=== PATIENT | male | born 1950 | race Caucasian/White ===

== ENCOUNTER → 2017-10-07 09:26 | Outpatient (CLI) | payer MEDICARE, OTHER, SELFPAY | PROVIDERS: Family Provider Internal Medicine; PCP Internal Medicine; Visit Provider Nurse Practitioner Family | DX: I48.0 Paroxysmal atrial fibrillation (principal); I25.118 Atherosclerotic heart disease of native coronary artery with other forms of angina pectoris | CPT/HCPCS: 93225; 93226 ==

== ENCOUNTER → 2018-03-24 06:39 | Outpatient (CLI) | payer MEDICARE, OTHER, SELFPAY ==
[2018-03-18 11:13] VITALS: BMI 24.3
--- NOTE | 2018-03-24 11:42 | STRESSREP ---
Stress Test Report Exercise myocardial perfusion stress test. 67-year-old man with a history of chest pain. Medications clopidogrel simvastatin metoprolol. Stress protocol: Resting EKG demonstrates normal sinus rhythm with a rate of 65 beats minute normal intervals are noted resting blood pressure 120/72 mmHg. The patient exercised according to regular Robert protocol for total duration of 8 minutes completing 2 minutes into stage III of the Robert protocol the maximum heart rate attained was 136 bpm which was 88% of maximum predicted heart rate maximum workload was 10.1 metabolic equivalents. At rest there were no ST or T wave changes noted suggest ischemia peak exercise upsloping ST changes only were noted with normally the criteria for ischemia. No clinical angina was noted. The resting blood pressure was 120/72 mmHg with a peak blood pressure 162/80 mmHg. Rate pressure product was 20,800. Myocardial perfusion protocol. 10.9 mCi of technetium 99m sestamibi was injected at rest. The patient exercised according to regular Robert protocol for total duration of 10 minutes at peak exercise 30.3 mCi of technetium 99m sestamibi was injected stress images were obtained stress and rest images were reconstructed and compared in the short axis vertical long horizontal long axis. Gated images were also obtained Perfusion SPECT analysis: Review of the stress images demonstrate normal uptake of tracer noted in all areas of myocardium. The resting images similarly demonstrate normal uptake of tracer noted in all areas of the myocardium. No areas of reversibility are noted suggest ischemia. Gated SPECT analysis: The gated ejection fraction is noted to be 62%. Conclusion: Normal exercise myocardial perfusion stress test at a high workload. Preserved ejection fraction. Good functional capacity.
== END ==
PROVIDERS: Family Provider Internal Medicine; PCP Internal Medicine; Referring Provider Internal Medicine Cardiovascular Disease; Visit Provider Internal Medicine Cardiovascular Disease
DX: I25.119 Atherosclerotic heart disease of native coronary artery with unspecified angina pectoris (principal)
CPT/HCPCS: 78452; 93017; A9500; A4216

== ENCOUNTER → 2018-12-30 15:30 | Outpatient (CLI) | payer MEDICARE, OTHER, SELFPAY ==
[2018-09-26 10:50] VITALS: BMI 22.3
--- NOTE | 2018-12-30 15:45 | MRI_ITS ---
STUDY: MRI UPPER EXTREMITY RIGHT HUMERUS WITH T WITHOUT CONTRAST REASON FOR EXAM: Male, 68 years old. Abnormal x-ray. Lesion of the proximal medial humerus. TECHNIQUE: Standardized fat and water weighted pulse sequences were obtained in all 3 orthogonal planes, pre-and post contrast administration. IV Dotarem 15 was administered for the contrast portion of the examination. COMPARISON: Prior comparison studies are not available for review at this time. FINDINGS: Normal subcutis adipose space. There is no demonstrated solid, cystic, or lipomatous mass within the subcutaneous adipose space. Normal visualized muscles and fascia. There is calcific tendinopathy of the rotator cuff, series 3 image . There is tenosynovitis of the long head of the biceps. Normal visualized neurovascular bundles. Normal humerus. There is no fracture or focal destruction. There is no enhancing mass. MRI/Upper Ext No Joint W/WO Cont IMPRESSION: No focal fracture or destruction. Electronically Signed: Howard Yeung MD at 8:49 EDT , Service support ,
--- NOTE | 2018-12-30 15:46 | MRI_ITS ---
STUDY: MRI RIGHT SHOULDER REASON FOR EXAM: Male, 68 years old. Abnormal x-ray. Lesion medial aspect proximal humerus. TECHNIQUE: Standardized fat and water weighted pulse sequences were obtained in all 3 orthogonal planes. COMPARISON: No recent studies submitted for comparison. FINDINGS: Mild tendon thickening and signal abnormality in the supraspinatus and infraspinatus tendons consistent with tendinosis or low-grade partial tear. No high-grade tear. Normal subscapularis tendon. Normal teres minor tendon. Visualized muscles are intact. 0.6 cm hypointense lesion along the anterior margin of the supraspinatus tendon is consistent with calcification and calcific tendinosis. Normal glenohumeral articulation. Normal biceps labral complex. Normal intracapsular long biceps tendon. Normal labrum. Normal capsulo- ligamentous complex. Normal rotator interval. Marked acromioclavicular arthrosis and small joint effusion. There is a Type I morphology (flat undersurface), with a neutral orientation. There is no subacromial-subdeltoid bursal fluid. 1.1 x 1.1 cm cystic lesion posterior to the glenoid, probable ganglion cyst. Marrow signal shows no fracture, bone contusion, or osteonecrosis. No destructive lesion. No enhancing lesion. MRI/Upper Ext Joint Only W/WO Cont IMPRESSION: 1. Tendinosis versus low-grade partial tear of the supraspinatus and infraspinatus tendons. 2. Suspected calcification along the anterior margin of the supraspinatus tendon suspicious for calcific tendinitis. Correlate with plain film. 3. Small ganglion cyst along the posterior margin of the glenoid process. Electronically Signed: Anjelica Benitez MD at 21:03 EDT Tel , Service support ,
== END ==
PROVIDERS: Family Provider Internal Medicine; PCP Internal Medicine; Referring Provider Physician Assistant Surgical; Visit Provider Physician Assistant Surgical
DX: R22.31 Localized swelling, mass and lump, right upper limb (principal); M25.511 Pain in right shoulder
CPT/HCPCS: 73220; 73223; A9575; A4216

== ENCOUNTER → 2020-03-13 08:03 | Outpatient (CLI) | payer MEDICARE, OTHER, SELFPAY ==
[2020-03-12 07:49] VITALS: BMI 24.1
[2020-03-13 10:19] LABS: AST(SGOT) 17 U/L (15-37); Alanine Aminotransfer ALT/SGPT 33 U/L (16-61); Albumin, Serum 3.9 g/dL (3.2-5.0); Alkaline Phosphatase 69 U/L (45-117); Bilirubin, Direct 0.18 mg/dL (0.00-0.30); Cholesterol 149 mg/dL (200); Globulin 3.4 g/dL (2.2-4.2); High Density Lipoprotein 46 mg/dL; Protein, Total 7.3 g/dL (6.4-8.2); Triglycerides 107 mg/dL; Very Low Density Lipoprotein 21 mg/dL (5-40)
== END ==
PROVIDERS: PCP Nurse Practitioner Family; Referring Provider Internal Medicine Cardiovascular Disease; Visit Provider Internal Medicine Cardiovascular Disease
DX: I25.119 Atherosclerotic heart disease of native coronary artery with unspecified angina pectoris (principal); E78.5 Hyperlipidemia, unspecified
CPT/HCPCS: 36415; 80061; 80076

== ENCOUNTER 2020-04-04 17:58 | Inpatient (IN) | payer MEDICARE, OTHER, SELFPAY ==
[2020-03-12 07:49] VITALS: BMI 24.1
[2020-04-04] VITALS (11 sets, daily range): BP systolic 123–160; BP diastolic 74–95; PULSE 76–103; RESP 14–16; TEMP 36.4–36.8; O2SAT 95–100; BMI 24.9; BMI 25.0
--- NOTE | 2020-04-04 18:05 | EKG12_ITS ---
Test Reason : CP Blood Pressure : / mmHG Vent. Rate : 100 BPM Atrial Rate : 100 BPM P-R Int : 220 ms QRS Dur : 100 ms QT Int : 348 ms P-R-T Axes : 051 -33 067 degrees QTc Int : 448 ms Sinus rhythm with 1st degree A-V block Left axis deviation Incomplete right bundle branch block Abnormal ECG Confirmed by MAR REYES, LISSET ([id number]), legal editor PERI JALLOH ([id number]) on 04/08/2020 9:05:36 AM Referred By: JAMES Confirmed By:LISSET MANUEL MD
--- NOTE | 2020-04-04 18:07 | ED.VIS.GEN ---
History of Present Illness Chief Complaint: Chest Pain Informant: Patient Narrative: Patient is a 69-year-old male with a past medical history of CAD with 1 stent placed who presents to the emerge part for substernal chest pain. He currently rates this as 8 out of 10. Initially started around noon became more constant around 3 PM. He has had pain like this before whenever they placed a stent around 5 years ago. He does not know aggravating or relieving factors. No associated shortness of breath. The pain does not radiate. Denies any leg swelling or calf pain. No nausea/diaphoresis. No abdominal pain. He did take a baby aspirin prior to coming in. He is on Plavix regularly. He denies a smoking history. Past Medical History - Allergies and Home Meds Allergies/Adverse Reactions: Allergies amiodarone Adverse Reaction (Verified 03/12/20 07:49) headaches Prior records reviewed: Yes Surgical History: herniorrhaphy, - - back surgery 1994, vasectomy. Smoking Status: Never smoker Review of Systems General: Denies: Chills, Fever, Sweats Eyes: Denies: Visual changes - bilaterally, Diplopia ENT: Denies: Rhinorrhea, Sore throat Cardiovascular: Reports: Chest pain. Denies: Palpitations Respiratory: Denies: Dyspnea, Cough, Dyspnea on exertion Gastrointestinal: Denies: Abdominal pain, Nausea, Vomiting, Diarrhea Musculoskeletal: Denies: Back pain, Extremity Pain Skin: Denies: Rash, Wounds Neurological: Denies: Headache, Weakness, Numbness Physical Exam Vital Signs/Narrative: Vital Signs Temp Pulse Resp BP Pulse Ox 04/04/20 18:04 99 16 160/93 H 100 04/04/20 17:59 97.6 F L 99 15 160/93 H 98 Inital Vital Signs reviewed: Yes General: Well nourished, Well developed, No Acute Distress Head: Normocephalic, Atraumatic Eyes: Perrl, EOMI ENT: Moist mucous membranes, No rhinorrhea Neck: Supple, Nontender Cardiovascular: Regular rate, Regular rhythm, No murmurs Respiratory: No distress, CTA bilaterally, Chest nontender Abdomen: Soft, Nontender, Nondistended, Normal bowel sounds Back: Nontender, Normal Inspection Extremities: Nontender, No edema. Negative for: Calf Tenderness Skin: Normal color, No rash Neurological: Alert, Oriented x3, Normal Strength, Normal Sensation Psychological: Normal affect, Normal Mood Diagnostic/Tx/Re-eval Chest X-Ray - ED: - - Single view portable x-ray interpreted by myself. No consolidation appreciated. No pleural effusions. Normal cardiac silhouette. Normal mediastinum. No acute cardiopulmonary abnormality. Agree with radiologist interpretation. - EKG Initial EKG Interpretation: - - Rate of 100 bpm in sinus rhythm. There is a OK interval of 220. Otherwise normal intervals. Left axis deviation. No significant ST elevations or depressions. No T wave abnormalities. Prior EKG for comparison was performed in 2014,sinus bradycardia that time with a normal OK interval. - Medical Decision Making Patient presents to the ED for substernal chest pain. Upon arrival to the emergency department he is mildly hypertensive but otherwise normal vital signs. He does not appear in acute distress. EKG, chest x-ray basic lab work being obtained. Will trial a dose of sublingual nitro for the chest pain. He did take a baby aspirin prior to coming in so we will give him the rest of the dose. Patient's lab work did not show any significant acute abnormality. His initial troponin is negative. He does have a heart score of 5. Given his active pain, history of CAD will bring into the hospital for further evaluation and management. The nitroglycerin did help slightly so we will do Nitropaste and give a dose of morphine. Patient otherwise has been stable throughout ED stay. He understands and is agreeable with this plan. ED Disposition - Plan for ED Patient: Disposition: Acute Care [facility] Diagnosis: Chest pain
[2020-04-04] MEDS: Aspirin 81 MG TAB.CHEW 243 MG PO (18:12)
[2020-04-04 18:16] LABS: Absolute Neutrophil Count 4.7 X10^3/uL (2.0-7.7); Basophil# 0.05 X10^3/uL; Basophil% 0.7 % (0-1); Eosinophil# 0.17 X10^3/uL; Eosinophils% 2.3 % (0-5); Hematocrit 43.3 % (40-54); Hemoglobin 14.2 g/dL (13.0-16.5); Lymphocyte % 24.1 % (19-41); Mean Corp Hgb Conc 32.8 g/dL (32-36); Mean Corpuscular Hgb 30.9 pg (27.0-32.0); Mean Corpuscular Volume 94.1 fL (80-94); Mean Platelet Vol. 8.9 fl (6.2-12.0); Monocyte# 0.76 X10^3/uL; Monocyte% 10.2 % (0-10); NRBC Flagged by Analyzer 0 % (0-5); Neutrophil # 4.67 X10^3/uL (2.7-7.7); Neutrophil % 62.4 % (47-70); Platelet Count 241 K/mm3 (150-450); RBC Distribution Width CV 12.1 % (11.6-14.6); RBC Distribution Width SD 41.9 fl (35.1-43.9); White Blood Count 7.5 K/mm3 (4.4-11.0)
--- NOTE | 2020-04-04 18:18 | RAD_ITS ---
STUDY: X-RAY CHEST REASON FOR EXAM: Male, 69 years old. Sternal chest pain beginning at noon. TECHNIQUE: Single AP portable view of the chest. COMPARISON: 08/06/2015. FINDINGS: The lungs are clear and expanded. There is no demonstrated pleural abnormality. Normal size heart. Normal mediastinum and radha. Normal visualized pulmonary arteries. Normal visualized aortic arch and descending thoracic aorta. There are diffuse degenerative changes of the visualized thoracic spine. There is degenerative osteoarthritis of the bilateral shoulders. There is no demonstrated abnormality of the visualized soft tissue structures of the upper abdomen. RAD/Chest 1 View (Portable) IMPRESSION: Degenerative changes, as described above. No demonstrated acute cardiopulmonary process. No major interval change. Electronically Signed: Alfred Naylor DO at 18:30 EST Tel [phone], Service support ,
--- NOTE | 2020-04-04 18:18 | ED.RN ---
cp remains 8-12/13. woods 09/12. declines medication for woods.
[2020-04-04 18:43] LABS: Anion Gap 4 (5-15); BUN 18 mg/dL (7-18); BUN/Creat Ratio 16.4 RATIO (10-20); Calcium,Total 9.4 mg/dL (8.5-10.1); Chloride 104 mmol/L (98-107); EST Glomerular Filtration Rate 71 mL/min (>60); Est Glom Filt Rate - Afr Amer 86 mL/min (>60); Estimated Creatinine Clearance 66.36 ml/min; Glucose 115 mg/dL (74-106); Sodium Level 138 mmol/L (136-145)
--- NOTE | 2020-04-04 19:20 | HP.PCM_ITS ---
Problem List (1) Chest pain Status: Acute Qualifiers: Chest pain type: unspecified Qualified Code(s): R07.9 - Chest pain, unspecified (2) Atherosclerosis of coronary artery of [place] heart with angina pectoris Status: Chronic Qualifiers: Coronary Disease-Associated Artery/Lesion type: unspecified vessel or lesion type Qualified Code(s): I25.119 - Atherosclerotic heart disease of [place] coronary artery with unspecified angina pectoris (3) History of coronary artery stent placement Status: Resolved Comment: [id number] LAD w/ 3.0 x 20 mm Promus Premier Stent 11/01/14 (4) Paroxysmal atrial fibrillation Status: Chronic Comment: Cryo PVI 2016 (5) HLD (hyperlipidemia) Status: Chronic Qualifiers: Hyperlipidemia type: unspecified Qualified Code(s): E78.5 - Hyperlipidemia, unspecified History of Present Illness Date of Admission: 04/04/20 Chief Complaint: Chest pain The patient is a 69 y/o M w/ PMHx: PAF s/p ablation, CAD s/p PCI proximal LAD, HLD, Chronic back pain/OA, GERD who presents to the [facility] ED on 04/04/20 with history of onset of substernal chest discomfort, described as pressure-like in nature, rated 8 out of 10 in severity starting at approximately noon and ongoing although he notes more consistent around 3 PM, similar to the pain he had approximately 5 years prior when he had his stenting of his LAD with no radiation, dyspnea, nausea, diaphoresis associated. In the ED following nitroglycerin administration patient notes improvement of his chest discomfort, more intermittent now and lessening to 5 out of 10 in severity with onset with associated headache following nitroglycerin administration. Patient does state he had a similar feeling prior to having had a stent previously. Work-up in the ED included T 97.6, heart 99, BP 160/93, respiratory rate 15, 98% on room air, CBC with WC 7.5, hemoglobin 14.2, platelet 241 without marked shift, BMP with glucose 115, troponin less than 0.015, chest x-ray with degenerative changes otherwise no acute cardiopulmonary findings, EKG with sinus rhythm with no acute evidence of ischemia. In the ED patient ministered nitroglycerin, morphine and aspirin therapy. Most recent stress testing noted on 03/24/2018, cardiac catheterization 08/08/2015 with at that time angiographically normal left main coronary artery, LAD artery with no high-grade stenosis, left circumflex artery with no high-grade stenosis, dominant right coronary artery with no high-grade stenosis, previously placed stent in the left anterior descending artery patent with a preserved EF, 11/01/2014 echocardiogram with normal LV, EF 50%, mild segmental systolic dysfunction, mildly hypokinetic mid anterior septal region, mildly hypokinetic mid anterior region, structurally normal valves. Past Medical History Past Medical History (Chronic Problems): Chronic Problems (Last Reviewed 03/12/20 @ 09:[address] Dallas Jones MD) Atherosclerosis of coronary artery of [place] heart with angina pectoris (Chronic) Paroxysmal atrial fibrillation (Chronic) Cryo PVI 2016 HLD (hyperlipidemia) (Chronic) Medical History: Medical History (Last Reviewed 03/12/20 @ 09:[address] Dallas Jones MD) Atherosclerosis of coronary artery of [place] heart with angina pectoris (Chronic) I25.119 Paroxysmal atrial fibrillation (Chronic) I48.0 Cryo PVI 2016 HLD (hyperlipidemia) (Resolved) E78.5 Back pain M54.9 Knee pain M25.569 Neck pain M54.2 Allergies amiodarone Adverse Reaction (Verified 03/12/20 07:49) headaches Home Medications: Ambulatory Orders Medication Instructions Recorded cholecalciferol (vitamin D3) 50 50 mcg PO DAILY 03/12/20 mcg (2,000 unit) capsule pantoprazole 40 mg tablet,delayed 40 mg PO DAILY #90 tab 03/12/20 release Clopidogrel Bisulfate [Clopidogrel] 75 mg PO DAILY 04/04/20 Cyanocobalamin (Vitamin B-12) 1,000 mcg PO DAILY 04/04/20 [Vitamin B-12] Penicillin V Potassium 500 mg PO 4X/DAY 04/04/20 Simvastatin 20 mg PO QPM 04/04/20 Surgical History: Surgical History (Last Reviewed 03/12/20 @ 09:[address] Dallas Jones MD) History of coronary artery stent placement (Resolved) Onset Date: 11/01/14 Z9 5.5 [id number] LAD w/ 3.0 x 20 mm Promus Premier Stent 11/01/14 History of herniorrhaphy Z98.890, Z87.19 History of vasectomy Z98.52 History of left heart catheterization Onset Date: 08/08/15 Z98.890 History of radiofrequency ablation procedure for cardiac arrhythmia Onset Date: 12/2016 Z98.890 CRYO PVI Surgical History: herniorrhaphy, - - Back surgery 1994, vasectomy, PCI x1, hernia repair, cardiac ablation. Psychiatric History: No pertinent psych hx Lives: Spouse/ Significant Other Smoking Status: Never smoker Tobacco Use: Non-smoker Alcohol: Occasional Drugs: None - *Family History Maternal Family History: Family History (Last Reviewed 03/12/20 @ 09:[address] Dallas Jones MD) Father CAD (coronary artery disease) Myocardial infarction Mother CAD (coronary artery disease) Sister CAD (coronary artery disease) History Items: Heart Disease Paternal Family History: Family History (Last Reviewed 03/12/20 @ 09:[address] Dallas Jones MD) Father CAD (coronary artery disease) Myocardial infarction Mother CAD (coronary artery disease) Sister CAD (coronary artery disease) History Items: Heart Disease Review of Systems Constitutional: Reports: Fatigue. Denies: Chills, Fever, Malaise, Weakness, Weight Change HEENT: Denies: Head Aches, Sinus Congestion, Sinus Drainage Cardiovascular: Reports: Chest Pain, Chest Pressure. Denies: Chest Tightness, Light Headedness, Orthopnea, Palpitations, Syncope Respiratory: Denies: Cough, Shortness of Breath, Shortness of breath at rest, Shortness of breath upon exertion, Sputum production Gastrointestinal: Denies: Abdominal Pain, Nausea, Vomiting Genitourinary: Denies: Dysuria Musculoskeletal: Reports: Back Pain, Joint Pain. Denies: Joint Tenderness Skin: Denies: Rash, Wounds Neurological: Denies: Numbness, Tingling, Focal weakness Psychiatric: Denies: Anxiety, Depression, Homicidal Ideations, Suicidal Ideations Hematologic/ Lymphatic: Denies: Easy Bruising, Easy Bleeding VTE Information - Inpt Only VTE Present on Admission: No VTE Mechan Device Prophylaxis: SCD's VTE Pharm Prophylaxis ordered?: Yes Patient Problems: Active and Suspected Problems (Last Reviewed 03/12/20 @ 09:[address] Dallas Jones MD) Chest pain (Acute) Subjective: Patient seated upright in the ED bed, notes chest discomfort is lessening, intermittent downstate of constant, pressure-like, now 5 out of 10 in severity, improved from prior. Objective: Physical Examination: General: awake, alert, oriented x 3 and cooperative, seated upright in the ED bed, mildly fatigued appearance, notes chest discomfort is improving. Skin: normal color, turgor, no icterus, cyanosis. HEENT: AT/NC, EOMI, PERRLA, mildly dry MM, no carotid bruits or JVD noted. Lungs: CTA bilaterally, moderate effort, mild decrease BL bases, no rales, ronchi or wheezing. Heart: Regular rate and rhythm; no gallop, rub audible. Abdomen: soft, NTTP, ND, normal BS, no HSM. Extremities: no cyanosis, clubbing, or edema. Neurological: patient awake, alert, oriented as noted; cognitive function intact; pupils equally reactive to light and accomodation; cranial nerves II-XII grossly normal, moving all 4 extremities, no focal deficits, strength mildly to moderately global decreased secondary to acute presentation. Psychiatric: affect appears mildly fatigued otherwise normal, no acute evidence of depressive or anxiety feelings. - Physical Exam Vitals/I&O's: Vital Signs Temp Pulse Resp BP Pulse Ox 97.6 F L 87 16 131/77 H 98 04/04/20 17:59 04/04/20 19:10 04/04/20 19:10 04/04/20 19:10 04/04/20 19:10 Oxygen Delivery Method Room Air Weight: 173 lb 8.061 oz Body Mass Index (BMI) 24.9 Laboratory Results 04/04/20 18:00: WBC 7.5, RBC 4.60, Hgb 14.2, Hct 43.3, MCV 94.1 H, MCH 30.9, MCHC 32.8, RDW Std Deviation 41.9, RDW Coeff of Radha 12.1, Plt Count 241, MPV 8.9, Immature Gran % (Auto) 0.300, Neut % (Auto) 62.4, Lymph % (Auto) 24.1, [place] % (Auto) 10.2 H, Eos % (Auto) 2.3, Baso % (Auto) 0.7, Absolute Neuts (auto) 4.7, Absolute Lymphs (auto) 1.80, Nucleated RBC % 0 04/04/20 18:00: Sodium 138, Potassium 4.0, Chloride 104, Carbon Dioxide 30.0, Anion Gap 4 L, BUN 18, Creatinine 1.10, Estim Creat Clear Calc 66.36, Est GFR (MDRD) Af Amer 86, Est GFR (MDRD) Non-Af 71, BUN/Creatinine Ratio 16.4, Glucose 115 H, Calcium 9.4, Troponin I < 0.015 Current Medications Nitroglycerin (Nitroglycerin Sl (Ed/Img/Cath) 0.4 Mg Tablet) 0.4 mg SUBLINGUAL Q5M PRN PRN Reason: Chest pain Assessment/Plan All Active Problems (Last Reviewed 03/12/20 @ 09:[address] Dallas Jones MD) Chest pain (Acute) History of coronary artery stent placement (Resolved 11/01/14) Conjunctivitis (Resolved) Maxillary sinusitis, acute (Resolved) The patient is a 69 y/o M w/ PMHx: PAF s/p ablation, CAD s/p PCI proximal LAD, HLD, Chronic back pain/OA, GERD who presents to the [facility] ED on 04/04/20 with history of onset of substernal chest discomfort rated 8 out of 10 in severity starting at approximately noon and ongoing although he notes more consistent around 3 PM, similar to the pain he had approximately 5 years prior when he had his stenting of his LAD. 1. Chest Pain: EKG in ED SR without acute evidence of ischemia, CXR w/ no acute cardiopulmonary findings, initial trop normal x 1. Will admit to PCU, place on a monitored bed to assure no acute myocardial infarction with serial cardiac enzymes and EKGs. Pending trending of enzymes and EKG will obtain AM stress testing. Will continue NG paste given improvement of chest pain with NG SL regimen. If elevated or alteration of EKG will obtain cardiology consultation. ASA, NG, morphine. 2. CAD: Status post PCI 2014 to the left anterior descending artery with cardiac catheterization as noted 08/08/2015 patent that at that time, we will continue patient aspirin, Plavix, statin therapy, not on beta-nohemy or MARIUSZ inhibitor/ARB, will consider addition especially given mildly elevated blood pressures upon presentation. 3. Elevated BP without hypertensive diagnosis: Patient with elevated BPs in the ED, will continue closely monitor and if appropriate add beta-nohemy therapy as well as possibly MARIUSZ inhibitor/ARB especially given CAD history as noted above. As needed IV hydralazine in interim. 4. Hyperlipidemia: Continue home statin regimen. AM FLP. 5. GERD: We will continue patient PPI. 6. PAF: Status post ablation, not on any rate or rhythm agents, noted allergy to amiodarone, not anticoagulated. 7. DVT prophylaxis: SCDs, Lovenox. 8. CODE status: Patient DENNIS is his and living will is currently in place. Discussed CODE status at length including difference between FULL code, DNR-CCA and DNR-CC status. Following discussions about the differences in these status, requested Full Code status. Advanced Care Planning Face to Face Time: 16 minutes. OBSV E&M: 43332 Initial observation care L3 Procedures: 32039 Advncd Care Plan 30 Min
[2020-04-04] MEDS: Nitroglycerin Oint 1 INCH PACKET TD (20:04)
[2020-04-04] MEDS: Morphine 4 MG/ML Syringe IV (20:05)
--- NOTE | 2020-04-04 20:23 | PCS.PANDOC ---
PANDEMIC DOCUMENTATION INITIATED: Date: 04/04/20 Time: 20:23
--- NOTE | 2020-04-04 20:29 | EKG12_ITS ---
Test Reason : AM EKG Blood Pressure : / mmHG Vent. Rate : 074 BPM Atrial Rate : 074 BPM P-R Int : 180 ms QRS Dur : 092 ms QT Int : 398 ms P-R-T Axes : 067 000 062 degrees QTc Int : 441 ms Normal sinus rhythm Normal ECG When compared with ECG of 04-APR-2020 17:59, MANUAL COMPARISON REQUIRED, DATA IS UNCONFIRMED Confirmed by MAR REYES, LISSET ([id number]), primer expeditor and drier PERI JALLOH ([id number]) on 04/09/2020 9:19:55 AM Referred By: SAVI Confirmed By:LISSET MANUEL MD
[2020-04-04 21:23] LABS: Magnesium 2.3 mg/dL (1.6-2.6)
[2020-04-04] MEDS: Atorvastatin Calcium 10 MG Tablet PO (21:31)
[2020-04-04] MEDS: Nitroglycerin Oint 1 INCH PACKET 0.5 INCH TD (23:03)
[2020-04-04] MEDS: Acetaminophen 325 MG Tablet 650 MG PO (23:07)
[2020-04-05] VITALS (11 sets, daily range): BP systolic 99–127; BP diastolic 60–84; PULSE 63–85; RESP 18–20; TEMP 36.7–37.2; O2SAT 92–98
[2020-04-05] MEDS: Nitroglycerin Oint 1 INCH PACKET 0.5 INCH TD ×2 (04:52→17:08)
--- NOTE | 2020-04-05 05:55 | EKG12_ITS ---
Test Reason : AM EKG Blood Pressure : / mmHG Vent. Rate : 069 BPM Atrial Rate : 069 BPM P-R Int : 184 ms QRS Dur : 092 ms QT Int : 408 ms P-R-T Axes : 051 001 049 degrees QTc Int : 437 ms Normal sinus rhythm Normal ECG When compared with ECG of 04-APR-2020 20:55, MANUAL COMPARISON REQUIRED, DATA IS UNCONFIRMED Confirmed by MAR REYES, LISSET ([id number]), publications editor PEIR JALLOH ([id number]) on 04/09/2020 9:24:09 AM Referred By: SAVI Confirmed By:LISSET MANUEL MD
[2020-04-05 06:53] LABS: Absolute Lymphocyte Count 1.27 X10^3/uL (0.83-4.51); Absolute Neutrophil Count 3.5 X10^3/uL (2.0-7.7); Basophil# 0.03 X10^3/uL; Basophil% 0.5 % (0-1); Eosinophil# 0.13 X10^3/uL; Eosinophils% 2.3 % (0-5); Hematocrit 39.3 % (40-54); Hemoglobin 12.7 g/dL (13.0-16.5); Lymphocyte # 1.27 X10^3/ul (4.0); Lymphocyte % 22.8 % (19-41); Mean Corp Hgb Conc 32.3 g/dL (32-36); Mean Corpuscular Hgb 30.8 pg (27.0-32.0); Mean Corpuscular Volume 95.2 fL (80-94); Mean Platelet Vol. 9.1 fl (6.2-12.0); Monocyte# 0.66 X10^3/uL; Monocyte% 11.9 % (0-10); NRBC Flagged by Analyzer 0 % (0-5); Neutrophil # 3.46 X10^3/uL (2.7-7.7); Neutrophil % 62.3 % (47-70); Platelet Count 206 K/mm3 (150-450); RBC Distribution Width CV 12.3 % (11.6-14.6); RBC Distribution Width SD 42.7 fl (35.1-43.9); Red Blood Count 4.13 M/mm3 (4.6-6.2); White Blood Count 5.6 K/mm3 (4.4-11.0)
[2020-04-05 07:15] LABS: ALB/GLOB Ratio 1.2 RATIO (0.9-2.4); AST(SGOT) 20 U/L (15-37); Alanine Aminotransfer ALT/SGPT 26 U/L (16-61); Albumin, Serum 3.5 g/dL (3.2-5.0); Alkaline Phosphatase 65 U/L (45-117); Anion Gap 3 (5-15); BUN 16 mg/dL (7-18); BUN/Creat Ratio 16.1 RATIO (10-20); Calcium,Total 8.6 mg/dL (8.5-10.1); Chloride 105 mmol/L (98-107); Cholesterol 148 mg/dL (200); Creatinine, Serum 0.99 mg/dL (0.70-1.30); EST Glomerular Filtration Rate 80 mL/min (>60); Est Glom Filt Rate - Afr Amer 96 mL/min (>60); Estimated Creatinine Clearance 73.74 ml/min; Glucose 92 mg/dL (74-106); High Density Lipoprotein 45 mg/dL; Potassium 3.8 mmol/L (3.5-5.1); Protein, Total 6.5 g/dL (6.4-8.2); Sodium Level 139 mmol/L (136-145); Triglycerides 98 mg/dL; Very Low Density Lipoprotein 20 mg/dL (5-40)
--- NOTE | 2020-04-05 08:06 | PCM.PN.HOSP ---
Patient Problems: Active and Suspected Problems (Last Reviewed 03/12/20 @ 09:[address] Dallas Jones MD) Chest pain (Acute) Reason for Visit: Follow-up for chest pain possible unstable angina Objective: Patient had about 4 to 5 hours of chest pain. Still feels mild heaviness on the chest but serial troponins are negative. EKG sinus rhythm with no acute evidence of ischemia. Patient most recent stress test in March 2018, cardiac cath August 08, 2015 showed previously placed stent in LAD patent and no significant major restenosis. Physical exam General: Alert, Oriented x3, Cooperative HEENT: Atraumatic, PERRLA, EOMI, Normocephalic Oral: No Gingival or Mucosal Lesions/ Ulcerations Neck: Supple, No JVD, Negative Carotid Bruits Lungs: Air entry diminished in bilateral lung bases. No crepitation/rhonchi Cardiovascular: Regular rate, Regular Rhythm, Normal S1, Normal S2, No murmurs Abdomen: Bowel Sounds Present, Soft, Non Tender, Non-Distended : No renal angle tenderness. No suprapubic tenderness. Extremities: No edema, Capillary Refill Less than 3 Seconds Skin: No rashes, No breakdown Musculoskeletal: No Tenderness to Palpation of Joints or Extremities Neurological: Cranial nerves II-XII grossly intact, Deep Tendon Reflexes 2+/4 and Symmetrical, Neuro grossly intact Psych/Mental Status: Normal Affect, Appropriate. Vitals/I&O's: Vital Signs Temp Pulse Resp BP Pulse Ox 98.9 F 74 20 H 99/60 98 04/05/20 03:30 04/05/20 07:47 04/05/20 03:30 04/05/20 03:30 04/05/20 03:30 Oxygen Delivery Method Room Air Weight: 174 lb 2.643 oz Body Mass Index (BMI) 25.0 Intake and Output for Last 24 Hours 04/03/20 04/04/20 04/05/20 23:59 23:59 23:59 Intake Total 360 / 360 Balance 360 / 360 Laboratory Results 04/04/20 18:00: WBC 7.5, RBC 4.60, Hgb 14.2, Hct 43.3, MCV 94.1 H, MCH 30.9, MCHC 32.8, RDW Std Deviation 41.9, RDW Coeff of Radha 12.1, Plt Count 241, MPV 8.9, Immature Gran % (Auto) 0.300, Neut % (Auto) 62.4, Lymph % (Auto) 24.1, Bell % (Auto) 10.2 H, Eos % (Auto) 2.3, Baso % (Auto) 0.7, Absolute Neuts (auto) 4.7, Absolute Lymphs (auto) 1.80, Nucleated RBC % 0 04/04/20 18:00: Sodium 138, Potassium 4.0, Chloride 104, Carbon Dioxide 30.0, Anion Gap 4 L, BUN 18, Creatinine 1.10, Estim Creat Clear Calc 66.36, Est GFR (MDRD) Af Amer 86, Est GFR (MDRD) Non-Af 71, BUN/Creatinine Ratio 16.4, Glucose 115 H, Calcium 9.4, Troponin I < 0.015 04/04/20 20:50: Magnesium 2.3 04/04/20 20:50: Troponin I < 0.015 04/05/20 00:00: Troponin I < 0.015 04/05/20 05:30: WBC 5.6, RBC 4.13 L, Hgb 12.7 L, Hct 39.3 L, MCV 95.2 H, MCH 30.8, MCHC 32.3, RDW Std Deviation 42.7, RDW Coeff of Radha 12.3, Plt Count 206, MPV 9.1, Immature Gran % (Auto) 0.200, Neut % (Auto) 62.3, Lymph % (Auto) 22.8, Bell % (Auto) 11.9 H, Eos % (Auto) 2.3, Baso % (Auto) 0.5, Absolute Neuts (auto) 3.5, Absolute Lymphs (auto) 1.27, Nucleated RBC % 0 04/05/20 05:30: Sodium 139, Potassium 3.8, Chloride 105, Carbon Dioxide 31.0, Anion Gap 3 L, BUN 16, Creatinine 0.99, Estim Creat Clear Calc 73.74, Est GFR (MDRD) Af Amer 96, Est GFR (MDRD) Non-Af 80, BUN/Creatinine Ratio 16.1, Glucose 92, Calcium 8.6, Total Bilirubin 0.50, AST 20, ALT 26, Alkaline Phosphatase 65, Total Protein 6.5, Albumin 3.5, Globulin 3.0, Albumin/Globulin Ratio 1.2, Triglycerides 98, Cholesterol 148, LDL Cholesterol 83, VLDL Cholesterol 20, HDL Cholesterol 45 Current Medications Acetaminophen (Acetaminophen 325 Mg Tablet) 650 mg PO Q6H PRN PRN PRN Reason: Pain Score 1-10/Temp > 100.7 F Last Admin: 04/04/20 23:07 Dose: 650 mg Documented by: Albuterol Sulfate (Albuterol 2.5 Mg/3 Ml Vial.Neb.) 2.5 mg INHALATION Q2H PRN PRN PRN Reason: Dyspnea, wheezing Aspirin (Aspirin E.C. 81 Mg Tablet) 81 mg PO DAILY@0800 [facility] Atorvastatin Calcium (Atorvastatin Calcium 10 Mg Tablet) 10 mg PO QHS [facility] Last Admin: 04/04/20 21:31 Dose: 10 mg Documented by: Clopidogrel Bisulfate (Clopidogrel Bisulfate 75 Mg Tablet) 75 mg PO DAILY [facility] Enoxaparin Sodium (Enoxaparin 40 Mg/0.4 Ml Syringe) 40 mg SC DAILY [facility] Guaifenesin (Guaifenesin 10 Ml Udc (200mg/10ml)) 20 ml PO Q4H PRN PRN PRN Reason: COUGH Hydralazine HCl (Hydralazine 20 Mg/Ml Vial) 10 mg IV Q4H PRN PRN PRN Reason: SBP > 160 Magnesium Hydroxide (Magnesium Hydroxide 30 Ml Udc) 30 ml PO DAILY PRN PRN PRN Reason: Constipation Morphine Sulfate (Morphine 4 Mg/Ml Syringe) 4 mg IV Q3H PRN PRN PRN Reason: Pain Score 6-10 Nitroglycerin (Nitroglycerin Oint 1 Inch Packet) 0.5 inch TD Q6 [facility] Last Admin: 04/05/20 04:52 Dose: 0.5 inch Documented by: Ondansetron HCl (Ondansetron 4 Mg/2 Ml Vial) 4 mg IV Q8H PRN PRN PRN Reason: NAUSEA/VOMITING Oxycodone HCl (Oxycodone 5 Mg Tablet) 5 mg PO Q4H PRN PRN PRN Reason: Pain Score 4-5 Pantoprazole Sodium (Pantoprazole Sodium 40 Mg Tablet) 40 mg PO DAILY [facility] Prochlorperazine Edisylate (Prochlorperazine 10 Mg/2 Ml Vial) 5 mg IV Q4H PRN PRN PRN Reason: Breakthrough Nausea/Vomiting Psyllium Hydrophilic Mucilloid (Psyllium 1 Packet) 1 packet PO DAILY PRN PRN PRN Reason: Constipation Senna/Docusate Sodium (Senna/Docusate Sodium 1 Tablet) 2 tablet PO BID PRN PRN PRN Reason: Constipation Sodium Chloride (0.9% Saline Lock 10 Ml Syringe) 10 - 40 ml IV UD PRN PRN Reason: SALINE FLUSH Temazepam (Temazepam 15 Mg Capsule) 15 mg PO QHS PRN PRN PRN Reason: INSOMNIA Throat Lozenges (Benzocaine/Menthol 1 Lozenge) 1 lozenge MUCOUS MEM Q2H PRN PRN PRN Reason: SORE THROAT STROKE Vital Signs/Narrative: Vital Signs Pulse 04/05/20 07:47 74 Medical Necessity - Tobacco Use Smoking Status: Never smoker Tobacco Use: Non-smoker Assessment/Plan All Active Problems (Last Reviewed 03/12/20 @ 09:[address] Dallas Jones MD) Chest pain (Acute) History of coronary artery stent placement (Resolved 11/01/14) Conjunctivitis (Resolved) Maxillary sinusitis, acute (Resolved) The patient is a 69 y/o M WITH HISTORY OF PAF s/p ablation, CAD s/p PCI proximal LAD, HLD, Chronic back pain/OA, GERD was admitted on 04/04/20 with history of onset of substernal chest discomfort with high suspicion of unstable angina 1. atypical chest pain with suspicion of unstable angina: EKG shows no acute evidence of ischemia. Serial troponin enzymes are negative. Fasting profile within normal limit, LDL 83, triglyceride 98. engine monitor shows sinus rhythm. Treadmill nuclear stress test scheduled for tomorrow a.m. Continue medical treatment aspirin, nitroglycerin as needed morphine, atorvastatin, Plavix 2. CAD: Status post PCI 2014 LAD with repeat cardiac cath shows patent arteries and patent LAD stent. Patient not on beta-nohemy or MARIUSZ or ARB inhibitor at home. Heart rate and blood pressure in normal range. Blood pressure in 110S-120s therefore will hold for MARIUSZ or ARB inhibitor. We will hold off for beta-nohemy prior to stress test 3. Elevated BP without hypertensive diagnosis: Was elevated in ED currently normal range as mentioned above. 4. Hyperlipidemia: Continue home statin regimen. As mentioned above 5. GERD: continue patient PPI. 6. PAF: Status post ablation, not on any rate or rhythm agents, noted allergy to amiodarone, not anticoagulated. 7. DVT prophylaxis: SCDs, Lovenox. Inpatient E&M: 91804 Subs Hosp L2
[2020-04-05] MEDS: Enoxaparin 40 MG/0.4 ML Syringe SC (10:05)
[2020-04-05] MEDS: Aspirin E.C. 81 MG Tablet PO (10:05)
[2020-04-05] MEDS: Clopidogrel Bisulfate 75 MG Tablet PO (10:06)
[2020-04-05] MEDS: Pantoprazole Sodium 40 MG Tablet PO (10:06)
[2020-04-05] MEDS: PENICILLIN V POTASSIUM 500 MG TABLET PO ×2 (16:51→21:21)
[2020-04-05] MEDS: Acetaminophen 325 MG Tablet 650 MG PO (19:55)
[2020-04-05] MEDS: Atorvastatin Calcium 10 MG Tablet PO (21:21)
[2020-04-06 03:00] VITALS: PULSE 66
[2020-04-06 03:50] VITALS: BP 116/77; PULSE 73; RESP 19; TEMP 37.1; O2SAT 95
--- NOTE | 2020-04-06 05:00 | EKG12_ITS ---
Test Reason : ADM EKG Blood Pressure : / mmHG Vent. Rate : 083 BPM Atrial Rate : 083 BPM P-R Int : 174 ms QRS Dur : 094 ms QT Int : 382 ms P-R-T Axes : 052 -22 059 degrees QTc Int : 448 ms Normal sinus rhythm Normal ECG No previous ECGs available Confirmed by MAR REYES, LISSET ([id number]), electronic news gathering editor PERI JALLOH ([id number]) on 04/09/2020 9:25:22 AM Referred By: SAVI Confirmed By:LISSET MANUEL MD
[2020-04-06 05:30] VITALS: BP 114/71; PULSE 81; RESP 19; TEMP 36.9; O2SAT 96
[2020-04-06] MEDS: Clopidogrel Bisulfate 75 MG Tablet PO (05:31)
[2020-04-06] MEDS: 0.9% Saline Lock 10 ML Syringe IV (05:31)
[2020-04-06] MEDS: Aspirin E.C. 81 MG Tablet PO (05:31)
[2020-04-06 06:52] VITALS: O2SAT 96
[2020-04-06 07:31] VITALS: PULSE 82
--- NOTE | 2020-04-06 10:48 | STRESSREP ---
Stress Test Report Exercise myocardial perfusion stress test. 69-year-old man with a history of coronary artery disease. Stress protocol: Resting EKG demonstrates normal sinus rhythm with a rate of 75 bpm normal intervals are noted resting blood pressure is 128/62 mmHg. The patient exercised according to the regular Robert protocol for a total duration of 6 minutes and 30 seconds. The maximum heart rate attained was 144 bpm which was 94% of maximum predicted heart rate the maximum workload was 7.7 metabolic equivalents. At rest there were no ST or T wave changes noted to suggest ischemia at peak exercise upsloping ST changes only were noted with no meet the criteria for ischemia. No clinical angina was noted the test was terminated due to leg discomfort. The resting blood pressure was 128/62 with a peak blood pressure 172/70 mmHg. Myocardial perfusion protocol. 12.0 mCi of technetium 99m sestamibi was injected at rest. Patient exercised for a total duration of 6-1/2 minutes and at peak exercise 34.0 mCi of technetium 99m sestamibi was injected stress images were obtained stress and rest images were reconstructed and compared in the short axis vertical long horizontal long axis. Gated images were also obtained Perfusion SPECT analysis: Review of the stress images demonstrate normal uptake of tracer noted in all areas of the myocardium the resting images similar demonstrate normal uptake of tracer noted in all areas of the myocardium. No reversibility is noted suggest ischemia no previous infarct is noted. Gated SPECT analysis: The gated ejection fraction was noted to be 67%. Conclusion: Normal exercise myocardial perfusion stress test at a moderate workload. No clinical angina noted. Preserved ejection fraction.
--- NOTE | 2020-04-06 11:15 | CT_ITS ---
STUDY: CT ABDOMEN AND PELVIS WITH CONTRAST REASON FOR EXAM: Male, 69 years old. EPIGASTRIC ABD PAIN, - HERNIA REPAIR, LB, HX-HLD,A-FIB, STENTS, ABLATION RADIATION DOSAGE (If Supplied By Facility): CTDIvol = ( 11.06 ) mGy, DLP = ( 645.88 ) mGycm TECHNIQUE: Transaxial images were obtained from the dome of the diaphragm to the symphysis pubis with oral contrast. 100mL Isovue-370 was administered. Sagittal and coronal images were reconstructed. Individualized dose optimization techniques were used for this CT. COMPARISON: None. FINDINGS: The visualized lung bases are unremarkable. The visualized portions of the heart are within normal limits. There are hypodensities consistent with cysts in the liver measuring up to 2.2 cm. There are small granulomatous calcifications in the liver. Normal gallbladder and extrahepatic biliary system. There are multiple benign calcified granulomata of the spleen. Normal pancreas. Normal bilateral adrenal glands. Normal right kidney. Normal left kidney. There is a small hiatal hernia. Normal small intestine. Normal colon. The appendix is visualized and appears normal. Normal abdominal aorta. Normal inferior vena cava. Normal retroperitoneum. Normal urinary bladder. There is no free fluid in the abdomen or pelvis. Normal abdominal wall. There are diffuse degenerative changes of the visualized lumbar spine. There is exostosis of the right ilium. There is subchondral curvilinear sclerosis with avascular necrosis of the right femoral head. CT/Abdomen/Pelvis WITH Contrast IMPRESSION: No obstruction. Small hiatal hernia. Electronically Signed: Howard Yeung MD at 14:54 EST , Service support ,
[2020-04-06 11:16] VITALS: BP 124/78; PULSE 70; RESP 18; TEMP 37.1; O2SAT 94
--- NOTE | 2020-04-06 11:18 | DCINST_ITS ---
- Discharge Diagnoses Current Active Problems: Current Active and Chronic Problems (Last Reviewed 03/12/20 @ 09:[address] Dallas Jones MD) Chest pain (Acute) Atherosclerosis of coronary artery of [place] heart with angina pectoris (Chronic) Paroxysmal atrial fibrillation (Chronic) Cryo PVI 2017 HLD (hyperlipidemia) (Chronic) You will use the following diet at home:: Cardiac Your food should be the consistency of: Regular Discharge Activity: May Not Drive - follow with PCP in 2weeks Weight Bearing Status: Weight bearing as tolerated Call your doctor if you observe: Fever of 101 or Higher, Coldness, Increased Pain, Numbness or Tingling, Change in Color, Inability to urinate, Inability to have a bowel movement, Shortness of breath, Dizziness, Fainting spells, Swelling in the ankles, Chest pain, Prolonged hiccoughing, Increased palpitations (irregular heartbeat), Calf discomfort, Uncontrolled pain Allergies/Adverse Reactions: Allergies amiodarone Adverse Reaction (Verified 03/12/20 07:49) headaches Medications to take at Discharge cholecalciferol (vitamin D3) 50 mcg (2,000 unit) capsule 50 mcg PO DAILY 03/12/20 Aspirin [Aspirin, Baby] 81 mg PO DAILY 04/04/20 Clopidogrel Bisulfate [Clopidogrel] 75 mg PO DAILY 04/04/20 Cyanocobalamin (Vitamin B-12) [Vitamin B-12] 1,000 mcg PO DAILY 04/04/20 Penicillin V Potassium 500 mg PO 4X/DAY 04/04/20 Simvastatin 20 mg PO QPM 04/04/20 Pantoprazole Sodium 40 mg PO BID #90 tab 04/06/20 The following prescriptions were given: Pantoprazole Sodium 40 mg PO BID #90 tab Primary Care Physician: Drew Hyman BYPRODUCTS OPERATOR, BYPRODUCTS OPERATOR-C [Primary Care Provider] - Please follow up with your Primary Care Physician in: in 2 weeks Test Results: Test results from this visit will be discussed in further detail at your follow- up appointment, if applicable. Please Follow Up With: Juan A Quintanilla MD When: in 2-3 weeks Please Follow Up With: Dallas Jones MD When: as scheduled
--- NOTE | 2020-04-06 11:21 | DS.PCM_ITS ---
Discharge Date and Diagnosis - Problem List Patient Problems: Active and Suspected Problems (Last Reviewed 03/12/20 @ 09:[address] Dallas Jones MD) Chest pain (Acute) Date of Admission: 04/04/20 Date of Discharge: 04/06/20 - Primary Discharge Diagnosis Acute Problems: Active Problems (Last Reviewed 03/12/20 @ 09:[address] Dallas Jones MD) Chest pain (Acute) - Secondary Discharge Diagnosis Chronic Problems: Chronic Problems (Last Reviewed 03/12/20 @ 09:[address] Dallas Jones MD) Atherosclerosis of coronary artery of [place] heart with angina pectoris (Chronic) Paroxysmal atrial fibrillation (Chronic) Cryo PVI 2017 HLD (hyperlipidemia) (Chronic) Hospital Course and Treatment Imaging Results: 04/06/20 05:55 Nuclear Stress Test - Treadmil [NM] AM (NON MEDS) 04/06/20 11:15 CT Abd [Abdomen/Pelvis WITH Contrast] [CT] Urgent Summary of Care Provided: The patient is a 69 year old M [] The patient is a 69 y/o M WITH HISTORY OF PAF s/p ablation, CAD s/p PCI proximal LAD, HLD, Chronic back pain/OA, GERD was admitted on 04/04/20 with history of onset of substernal chest discomfort with high suspicion of unstable angina 1. atypical chest pain with suspicion of unstable angina: EKG shows no acute evidence of ischemia. Serial troponin enzymes are negative. Fasting profile wi thin normal limit, LDL 83, triglyceride 98. abstract manager shows sinus rhythm. Patient had exercise myocardial perfusion stress test reported no reversibility suggestive of no ischemia with no previous infarct noted. EF 67%. Continue medical treatment aspirin, nitroglycerin as needed morphine, atorvastatin, Plavix 2. CAD: Status post PCI 2014 LAD with repeat cardiac cath shows patent arteries and patent LAD stent. Patient heart rate and blood pressure are controlled. Advised to follow-up PCP in 1 to 2 weeks to consider beta-nohemy starting low- dose. Patient blood pressure 124/78, may not tolerate MARIUSZ/ARB inhibitor. CT abdomen was done which shows a small hiatus hernia. Small and large bowel reported normal. Incidental finding of small simple cyst in liver 2.2 cm. 3. Gardner's esophagus with chronic GERD/gastritis: Patient follows Dr. Moya. He had a schedule in June 2020. Advised to continue Protonix 40 mg twice daily. Prescription sent to the [facility]. 4. Hyperlipidemia: Continue home statin regimen. As mentioned above 5. GERD: continue patient PPI. 6. PAF: Status post ablation, not on any rate or rhythm agents, noted allergy to amiodarone, not anticoagulated. 7. DVT prophylaxis: SCDs, Lovenox. Discharge medication reconciliation done. Discharge follow-up instructions completed. Discharge process discussed with the patient and all questions were answered to patient's satisfaction. Total time spent, exact 35 minutes on discharge meds reconciliation, examination, coordination of care with nurses and ancillary staff, review of im aging and blood test and discussion with the patient on follow-up instructions Clinical Impression(s) from Imaging Studies Chest X-Ray 04/04/20 18:18 IMPRESSION: Degenerative changes, as described above. No demonstrated acute cardiopulmonary process. No major interval change. Abdomen/Pelvis CT 04/06/20 11:15 IMPRESSION: No obstruction. Small hiatal hernia. Patient Problems: Active and Suspected Problems (Last Reviewed 03/12/20 @ 09:[address] Dallas Jones MD) Chest pain (Acute) Objective: Patient and his had concern for chronic epigastric pain with sometimes heart reflux. Patient has history of Gardner's esophagus and follows Dr. Moya. During previous EGD probably around SeptemberOctober 2018, Gardner's esophagus is better as per patient. He also has a small hiatus hernia. He had colonoscopy in recent past did not show any major abnormality. Patient also complains of early satiety, mild loss of appetite but he gained about 12 pounds which does not make sense. Physical exam General: Alert, Oriented x3, Cooperative HEENT: Atraumatic, PERRLA, EOMI, Normocephalic Oral: No Gingival or Mucosal Lesions/ Ulcerations Neck: Supple, No JVD, Negative Carotid Bruits Lungs: Air entry equal in bilateral lung bases. No crepitation/rhonchi Cardiovascular: Regular rate, Regular Rhythm, Normal S1, Normal S2, No murmurs Abdomen: Bowel Sounds Present, Soft, Non Tender, Non-Distended. No palpable mass : No renal angle tenderness. No suprapubic tenderness. Extremities: No edema, Capillary Refill Less than 3 Seconds Skin: No rashes, No breakdown Musculoskeletal: No Tenderness to Palpation of Joints or Extremities Neurological: Cranial nerves II-XII grossly intact, Deep Tendon Reflexes 2+/4 and Symmetrical, Neuro grossly intact Psych/Mental Status: Normal Affect, Appropriate. - Physical Exam Vitals/I&O's: Vital Signs Temp Pulse Resp BP Pulse Ox 98.7 F 70 18 124/78 H 94 04/06/20 11:16 04/06/20 11:16 04/06/20 11:16 04/06/20 11:16 04/06/20 11:16 Oxygen Delivery Method Room Air Weight: 174 lb 2.643 oz Body Mass Index (BMI) 25.0 Intake and Output for Last 24 Hours 04/04/20 04/05/20 04/06/20 23:59 23:59 23:59 Intake Total 1610 / 1910 330 / 330 Output Total 700 / 700 Balance 910 / 1210 330 / 330 Current Medications Acetaminophen (Acetaminophen 325 Mg Tablet) 650 mg PO Q6H PRN PRN PRN Reason: Pain Score 1-10/Temp > 100.7 F Last Admin: 04/05/20 19:55 Dose: 650 mg Documented by: Albuterol Sulfate (Albuterol 2.5 Mg/3 Ml Vial.Neb.) 2.5 mg INHALATION Q2H PRN PRN PRN Reason: Dyspnea, wheezing Aspirin (Aspirin E.C. 81 Mg Tablet) 81 mg PO DAILY@0800 [facility] Last Admin: 04/06/20 05:31 Dose: 81 mg Documented by: Atorvastatin Calcium (Atorvastatin Calcium 10 Mg Tablet) 10 mg PO QHS [facility] Last Admin: 04/05/20 21:21 Dose: 10 mg Documented by: Clopidogrel Bisulfate (Clopidogrel Bisulfate 75 Mg Tablet) 75 mg PO DAILY [facility] Last Admin: 04/06/20 05:31 Dose: 75 mg Documented by: Enoxaparin Sodium (Enoxaparin 40 Mg/0.4 Ml Syringe) 40 mg SC DAILY [facility] Last Admin: 04/05/20 10:05 Dose: 40 mg Documented by: Guaifenesin (Guaifenesin 10 Ml Udc (200mg/10ml)) 20 ml PO Q4H PRN PRN PRN Reason: COUGH Hydralazine HCl (Hydralazine 20 Mg/Ml Vial) 10 mg IV Q4H PRN PRN PRN Reason: SBP > 180 Morphine Sulfate (Morphine 4 Mg/Ml Syringe) 4 mg IV Q3H PRN PRN PRN Reason: Pain Score 6-10 Nitroglycerin (Nitroglycerin Oint 1 Inch Packet) 0.5 inch TD Q6 [facility] Last Admin: 04/05/20 22:01 Dose: Not Given Documented by: Ondansetron HCl (Ondansetron 4 Mg/2 Ml Vial) 4 mg IV Q8H PRN PRN PRN Reason: NAUSEA/VOMITING Oxycodone HCl (Oxycodone 5 Mg Tablet) 5 mg PO Q4H PRN PRN PRN Reason: Pain Score 4-5 Pantoprazole Sodium (Pantoprazole Sodium 40 Mg Tablet) 40 mg PO DAILY [facility] Last Admin: 04/05/20 10:06 Dose: 40 mg Documented by: Penicillin V Potassium (Penicillin V Potassium 500 Mg Tablet) 500 mg PO 4X/DAY [facility] Last Admin: 04/05/20 21:21 Dose: 500 mg Documented by: Prochlorperazine Edisylate (Prochlorperazine 10 Mg/2 Ml Vial) 5 mg IV Q4H PRN PRN PRN Reason: Breakthrough Nausea/Vomiting Psyllium Hydrophilic Mucilloid (Psyllium 1 Packet) 1 packet PO DAILY PRN PRN PRN Reason: Constipation Senna/Docusate Sodium (Senna/Docusate Sodium 1 Tablet) 2 tablet PO BID PRN PRN PRN Reason: Constipation Sodium Chloride (0.9% Saline Lock 10 Ml Syringe) 10 - 40 ml IV UD PRN PRN Reason: SALINE FLUSH Last Admin: 04/06/20 05:31 Dose: 10 ml Documented by: Temazepam (Temazepam 15 Mg Capsule) 15 mg PO QHS PRN PRN PRN Reason: INSOMNIA Throat Lozenges (Benzocaine/Menthol 1 Lozenge) 1 lozenge MUCOUS MEM Q2H PRN PRN PRN Reason: SORE THROAT Discharge Activity: May Not Drive - follow with PCP in 2weeks Weight Bearing Status: Weight bearing as tolerated Call your doctor if you observe: Fever of 101 or Higher, Coldness, Increased Pain, Numbness or Tingling, Change in Color, Inability to urinate, Inability to have a bowel movement, Shortness of breath, Dizziness, Fainting spells, Swelling in the ankles, Chest pain, Prolonged hiccoughing, Increased palpitations (irregular heartbeat), Calf discomfort, Uncontrolled pain Home Medications: Medications to take at Discharge cholecalciferol (vitamin D3) 50 mcg (2,000 unit) capsule 50 mcg PO DAILY 03/12/20 Aspirin [Aspirin, Baby] 81 mg PO DAILY 04/04/20 Clopidogrel Bisulfate [Clopidogrel] 75 mg PO DAILY 04/04/20 Cyanocobalamin (Vitamin B-12) [Vitamin B-12] 1,000 mcg PO DAILY 04/04/20 Penicillin V Potassium 500 mg PO 4X/DAY 04/04/20 Simvastatin 20 mg PO QPM 04/04/20 Pantoprazole Sodium 40 mg PO BID #90 tab 04/06/20 Following Prescriptions Were Given to Patient: Pantoprazole Sodium 40 mg PO BID #90 tab Primary Care Physician: Drew Hyman DEPLOYMENT MANAGER, DEPLOYMENT MANAGER-C [Primary Care Provider] - Please follow up with your Primary Care Physician in: in 2 weeks Please Follow Up With: Juan A Quintanilla MD When: in 2-3 weeks Please Follow Up With: Dallas Jones MD When: as scheduled Medical Necessity - Tobacco Use Smoking Status: Never smoker Tobacco Use: Non-smoker Meaningful Use Info Meaningful Use Diagnoses (Choose all that apply): None applicable OBSV E&M: [id number] Initial observation care L3
--- NOTE | 2020-04-06 11:50 | CASEMGMT ---
DIANE RODRIGUEZ assessment: Face to Face with patient for initial transition planning/care coordination assessment. DIANE RODRIGUEZ introduced self and role at [facility], pt voices understanding and consents to assessment at this time. Pt is sitting up in chair in no distress at this time. Pt is A/Ox4 at this time and answers all questions appropriately at this time. Care providers, pharmacy, and demographics verified at this time. Presentation: Pt c/o sternal CP since 12N-pt currently taking PCN for infected tooth Admitting dx: CP PCP: [facility] Specialists: LESTER Quintanilla; Karen cardio Preferred Pharmacy: [facility] [place] Insurance: MCR A/B, [employer] Prescription Benefit: Yes Living Will/HPOA: Pt has LW/HPOA and is aware that they are not on file at [facility] at this time. Pt states his , Misty Chandler, is HPOA. LNOK: Misty Chandler, ; Living Arrangements: Pt states lives with in 2 story home and states no concerns at home at this time. Pt states is independent with ADL's. Transportation: Pt states drives self and states no transportation concerns at this time. DME/HHC: Pt states has a bp cuff at home and states no need for any further DME at this time. Pt states has no hx of HHC or SNF in the past. Pt states no concerns with going home at time of discharge. Pt states is retired. Pt states does not smoke cigarettes but does drink ETOH occasionally. Pt states no further concerns/needs at this time. CM to follow for any further discharge planning/needs. Advised pt to ask for CM if any further questions/concerns/needs arise, voices understanding. Pt Goal: Home Plan: [place] DIANE RODRIGUEZ
[2020-04-06] MEDS: PENICILLIN V POTASSIUM 500 MG TABLET PO (14:58)
--- NOTE | 2020-04-06 15:51 | NURSING ---
Pt discharged home into the care of family. IV dc. NADN. Pt A&O VSS. Discharge instructions and Rxs given to patient. Pt taken to discharge area in wheelchair via RN.
== END 2020-04-06 11:29 | disposition home or self-care (01) | DRG 303 ==
LOC: ED 18:27 → PCU 19:45
PROVIDERS: Admitting Provider Family Medicine; Emergency Provider Emergency Medicine; PCP Nurse Practitioner Family; Visit Provider Internal Medicine
DX: I25.110 Atherosclerotic heart disease of native coronary artery with unstable angina pectoris (principal); Z95.5 Presence of coronary angioplasty implant and graft; K21.9 Gastro-esophageal reflux disease without esophagitis; K22.70 Barrett's esophagus without dysplasia; K29.70 Gastritis, unspecified, without bleeding; E78.5 Hyperlipidemia, unspecified; Z79.02 Long term (current) use of antithrombotics/antiplatelets; I48.0 Paroxysmal atrial fibrillation; Z79.899 Other long term (current) drug therapy; R03.0 Elevated blood-pressure reading, without diagnosis of hypertension; K44.9 Diaphragmatic hernia without obstruction or gangrene; K76.89 Other specified diseases of liver
CPT/HCPCS: 36415; 71045; 74177; 78452; 80048; 80053; 80061; 83735; 84484; 85025; 93005; 93017; 99251; 99283; A9500; A4216; G0463; J2785

== ENCOUNTER → 2022-10-16 | Outpatient (CLI) | payer MEDICARE, OTHER, SELFPAY | END | disposition home or self-care (01) | LOC: LAB 14:25 | PROVIDERS: PCP Family Medicine; Referring Provider Family Medicine; Visit Provider Family Medicine | DX: R30.0 Dysuria (principal) | CPT/HCPCS: 87086 ==

== ENCOUNTER → 2022-10-19 | Outpatient (CLI) | payer MEDICARE, OTHER, SELFPAY ==
[2022-10-19 10:09] LABS: Absolute Neutrophil Count 3.6 X10^3/uL (2.0-7.7); Basophil# 0.05 X10^3/uL; Basophil% 0.9 % (0-1); Eosinophil# 0.07 X10^3/uL; Eosinophils% 1.3 % (0-5); Hematocrit 41.4 % (40-54); Hemoglobin 13.2 g/dL (13.0-16.5); Lymphocyte % 21.5 % (19-41); Mean Corp Hgb Conc 31.9 g/dL (32-36); Mean Corpuscular Hgb 30.8 pg (27.0-32.0); Mean Corpuscular Volume 96.5 fL (80-94); Mean Platelet Vol. 9.3 fl (6.2-12.0); Monocyte# 0.64 X10^3/uL; Monocyte% 11.4 % (0-10); NRBC Flagged by Analyzer 0 % (0-5); Neutrophil # 3.62 X10^3/uL (2.7-7.7); Neutrophil % 64.7 % (47-70); Platelet Count 247 K/mm3 (150-450); RBC Distribution Width CV 12.7 % (11.6-14.6); RBC Distribution Width SD 45.1 fl (35.1-43.9); Red Blood Count 4.29 M/mm3 (4.6-6.2); White Blood Count 5.6 K/mm3 (4.4-11.0)
[2022-10-19 10:59] LABS: ALB/GLOB Ratio 1.1 RATIO (0.9-2.4); AST(SGOT) 16 U/L (15-37); Alanine Aminotransfer ALT/SGPT 21 U/L (16-61); Albumin, Serum 3.6 g/dL (3.2-5.0); Alkaline Phosphatase 87 U/L (45-117); Anion Gap 4 (5-15); BUN 11 mg/dL (7-18); BUN/Creat Ratio 12.6 RATIO (10-20); Calcium,Total 9.1 mg/dL (8.5-10.1); Chloride 103 mmol/L (98-107); Cholesterol 109 mg/dL (200); Creatinine, Serum 0.87 mg/dL (0.70-1.30); EST Glomerular Filtration Rate 92 mL/min (>60); Est Glom Filt Rate - Afr Amer 111 mL/min (>60); Globulin 3.3 g/dL (2.2-4.2); Glucose 101 mg/dL (74-106); High Density Lipoprotein 48 mg/dL; Potassium 3.7 mmol/L (3.5-5.1); Protein, Total 6.9 g/dL (6.4-8.2); Sodium Level 136 mmol/L (136-145); Triglycerides 111 mg/dL; Very Low Density Lipoprotein 22 mg/dL (5-40)
== END | disposition home or self-care (01) ==
LOC: MTLAB 08:25
PROVIDERS: PCP Family Medicine; Referring Provider Family Medicine; Visit Provider Family Medicine
DX: I25.10 Atherosclerotic heart disease of native coronary artery without angina pectoris (principal); Z12.5 Encounter for screening for malignant neoplasm of prostate
CPT/HCPCS: 36415; 80053; 80061; 84153; 85025; G0103

== ENCOUNTER 2022-10-22 10:00 | Outpatient (RCR) | payer MEDICARE, OTHER, SELFPAY ==
--- NOTE | 2022-09-24 13:22 | HP.PTEVAL ---
Patient's Visit Information AVI DURHAM is a 72 year old M referred to Physical Therapy by Dr. Sanjiv Greenberg MD with a diagnosis of S/P POST LAMINECTOMY WITH SPINAL FUSION. Date of Evaluation: 09/24/22 Physical Therapist: Alok Prieto, PT, Cert MDT, OCS - Visit Plan Frequency: 2x /Week Duration: 6 Weeks Plan: S/P CERVICAL FUSION WITH LAMINECTOMY. PT INTEVTIONS CERVICAL ROM , CERVICAL ISOMTRICS ,STRENGTHENING ,AND POSTURAL EX'S - Subjective This 72 y/o male presents to physical therapy with cervical surgery. Patient underwent s/p laminectomy with spinal fusion C3-7 on Sep 01 2022 at [facility] by Dr. Greenberg. D/C 3 days later due to pain. Patient was prescribed Vicodin for 8 days. Patient had cervical pain ~ year with cervical radicular symptom left arm . Patient had MRI prior to surgery . Patient tried injections and PT made symptoms worse. Currently has pain incision and cramp in neck 26/10 and has intermittent left arm symptoms. Aggravating factors walking ,standing trying to bend . Alleviating factors rest. Patient has difficulty sleeping. Patient has paresthesia/tingling. Patient has some weakness prior to surgery. Patient condition affects QOL and function. Patient goals to have no more pain. SOCIAL: . VOCATION: retired. HOOBIES: golf - Pain Bilateral Neck Pain Intensity (Out of 10): 4 Pain Intensity Range: 10 Left Shoulder Pain Intensity (Out of 10): 2 Pain Intensity Range: 10 - Objective POSTURE: mild forward posture. NEURO: denies paresthesia/tingling ,reflexes L3-4,L4-5,L5-S1 2/3. PALAPTION: UT/levator, scalene left >right. CERVICAL ROM: flexion mod loss ,rotation mod loss ,lateral flexion mod/severe loss ,extension severe loss. MMT: BUE grossly 4/5 except 4-/5 - Special Tests C/S Radiculapathy - Left Upper limb tension test: Negative C/S Radiculapathy - Right Upper limb tension test: Negative C/S Radiculapathy - Right Relief test: Negative - Balance/Special Test Scores Oswestry Neck Score: 26 - Goals Goal 1:: I with HEP for cervical spine s/p surgery Goal Time Frame: 4-6 Weeks Goal 2:: Patient to demonstrate 50% improvement with improved function and less pain with walking/standing. 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 Goal Time Frame: 4-6 Weeks - Rehabilitation Potential Physical Therapy Diagnosis: This patient underwent s/p fusion with laminectomy on Sep 01 2022 with decrease ROM cervical spine , symptoms worse with walking standing thus impairs ADLS and function will benefit from skilled PT Rehabilitation Potential: Good - Anticipated Interventions Patient/Client Instruction: Educate patient on: Condition, Plan of Care For the Purpose of:: To decrease pain, To increase ROM, To improve muscle performance and motor function, To increase tolerance to activity/condition/position, To improve ability of physical actions for home/community/work/leisure, To improve health of tissue, To decrease soft tissue restriction, To increase flexibility/ROM Therapeutic Exercise to Include: Strength training, Postural training, Flexibilty training, Active ROM For the Purpose of:: To decrease pain, To increase ROM, To improve muscle performance and motor function, To increase tolerance to activity/condition/position, To improve ability of physical actions for home/community/work/leisure, To improve health of tissue, To decrease soft tissue restriction, To increase flexibility/ROM, To reduce risk of recurrence, To improve tolerance to ADL's Thank you for the opportunity to evaluate your patient. For Medicare and Medicare HMO plans, please review the plan of care and approve it. It will need to be FAXED BACK to us at [phone] for Medicare purposes. For Medicare only, by signing this I certify the plan of care. Please let me know if there are questions or concerns regarding this plan of care. Physician Signature: Date:
--- NOTE | 2022-12-10 11:36 | HP.PTDCSUM_ITS ---
Discharge Summary D/C summary: It has been my pleasure to treat AVI DURHAM referred by Dr. Sanjiv Greenberg MD, with the diagnosis of S/P POST LAMINECTOMY WITH SPINAL FUSION for a total of 9 visit(s). Discharge Date: Please see the following information for a summary of their discharge status. Subjective Subjective: Patient has major issue with cramp which has been there every since surgery ,walking ,bending and extended sitting only relieve when sitting Pain Bilateral Neck: Pain Intensity (Out of 10): 3 Left Shoulder: Pain Intensity (Out of 10): 3 Overall Improvement % Improvement: 25 Objective Objective/Function: POSTURE: mild forward posture. NEURO: denies paresthesia/tingling ,reflexes L3-4,L4-5,L5-S1 2/3. PALAPTION: UT/levator, scalene left >right. CERVICAL ROM: flexion mod loss ,rotation mod loss ,lateral flexion mod/severe loss ,extension severe loss. MMT: BUE grossly 4/5 except 4- /5 Cramp is unchanged with walking and standing Goals Goal 1:: I with HEP for cervical spine s/p surgery Goal 2:: Patient to demonstrate 50% improvement with improved function and less pain with walking/standing. 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 Plan Plan: D/C D/C Information d/c sentence: If there are questions or concerns regarding this patient's physical therapy, please feel free to call me at [phone]. Thank you for the referral of this patient. Sincerely, Alok Prieto, PT, Cert MDT, OCS Balance/Gait/Functional tests Balance/Special Test Scores Oswestry Neck Score: 26 Improvement % Improvement: 25
== END 2022-10-22 19:00 | disposition home or self-care (01) ==
LOC: PT 10:00
PROVIDERS: PCP Nurse Practitioner Family; Referring Provider Orthopaedic Surgery Orthopaedic Surgery of the Spine; Visit Provider Orthopaedic Surgery Orthopaedic Surgery of the Spine
DX: Z98.1 Arthrodesis status (principal)
CPT/HCPCS: 97110; 97140; 97162; 97530

== ENCOUNTER → 2022-11-30 | Outpatient (CLI) | payer MEDICARE, OTHER, SELFPAY ==
--- NOTE | 2022-11-30 10:04 | RAD_ITS ---
INDICATION: CHRONIC DYSPNEA ON EXERTION EXAMINATION/TECHNIQUE: X-RAY - XR Chest 2 Views COMPARISON: April 04, 2020 FINDINGS: LINES/DEVICES: None. LUNGS: No consolidation, edema or effusion. No pneumothorax. MEDIASTINUM AND CARDIOVASCULAR STRUCTURES: Cardiac silhouette not enlarged. Central airways and mediastinal contour are unremarkable. BONES AND SOFT TISSUES: Unremarkable. RAD/Chest PA and Lateral IMPRESSION: No radiographic evidence of acute cardiopulmonary disease. Electronically Signed: Javier Perales DO at 16:47 EDT Reading Location ID and State: [facility] / [place] Tel [phone], Service support ,
== END | disposition home or self-care (01) ==
LOC: MTRAD 10:03
PROVIDERS: PCP Family Medicine; Referring Provider Family Medicine; Visit Provider Family Medicine
DX: R06.09 Other forms of dyspnea (principal)
CPT/HCPCS: 71046

== ENCOUNTER → 2023-03-05 | Outpatient (CLI) | payer MEDICARE, OTHER, SELFPAY ==
--- NOTE | 2023-03-05 15:32 | MRI_ITS ---
STUDY: MRI CERVICAL SPINE WITH AND WITHOUT CONTRAST REASON FOR EXAM: Male, 72 years old. NECK PAIN POST LAMINECTOMY TECHNIQUE: Standardized fat and water weighted pulse sequences were obtained in the sagittal and axial following administration of 15 mL of IV Clariscan. COMPARISON: None FINDINGS: Normal foramen magnum and brainstem-cervical cord junction. Normal craniovertebral junction. Normal anterior atlantoaxial articulation. Normal odontoid process. Normal cervical lordosis. Postsurgical absence of the spinous processes and lamina from C3 down to C7. Normal vertebral bodies and remaining visualized osseous elements. C2-3: Normal endplates. Normal disc height. Mild ventral extradural defect due to small posterior bulging annulus. Normal central canal and intervertebral neural foramina. C3-4: Normal endplates. Moderate disc space height narrowing. Right posterior marginal spur causing ventral extradural defect. Capacious central canal and intervertebral neural foramina. Articular pillar screws and rods causing signal distortion artifacts. Postsurgical absence of the spinous processes and lamina. C4-5: Normal endplates. Minimal disc space height narrowing. No ventral extradural defect. Normal central canal and intervertebral neural foramina. Postsurgical absence of the spinous processes and lamina. Articular pillar screws and rods causing signal distortion artifacts. C5-6: Normal endplates. Mild disc space height narrowing. No ventral extradural defect. Postsurgical absence of the spinous processes and lamina. Articular pillar screws and rods causing signal distortion artifacts. C6-7: Normal endplates. Mild disc space height narrowing. Minimal degenerative retrolisthesis of C6 on C7. Capacious central canal. Normal intervertebral neural foramina. Postsurgical absence of the spinous processes and lamina. The articular pillar screws and rods causing signal distortion artifacts. C7-T1: Normal endplates. Normal disc height. No ventral extradural defect. Normal central canal and intervertebral neural foramina. Postsurgical absence of the C7 spinous processes and lamina. T1-T2, T2-T3 and T3-T4: (Sagittal only). Normal endplates. Normal disc height, signal and morphology. Normal central canal and intervertebral neural foramina. Normal cervical cord. Normal upper thoracic spinal cord. Normal included portions of brainstem and cerebellum. Following IV contrast administration, the fat suppression obliterates the central canal from the upper C3 vertebral body level down to the lower C7 vertebral body level. The nonfat suppressed postcontrast T1 axial images show no suspicious abnormal enhancing lesions intradurally and extradurally. Normal visualized soft tissue structures. MRI/Spine Cervical W/WO Contrast IMPRESSION: 1. No MRI evidence of cervical extruded disc fragment, disc protrusion, spinal stenosis or cervical nerve root displacement. 2. Capacious central canal and normal intervertebral neural foramina from C2-C3 down to T3-T4 disc space levels. 3. No abnormal enhancing lesions intradurally and extradurally throughout the cervical spine. Electronically Signed: Brian Qiu MD at 8:45 EST ,
[2023-03-05 16:07] LABS: CREATININE FINGERSTICK < 1.0 mg/dL (0.70-1.30); EGFR FINGERSTICK > 60.0000 mL/min (>60)
== END | disposition home or self-care (01) ==
LOC: MRI 15:28
PROVIDERS: PCP Family Medicine; Visit Provider Family Medicine
DX: M43.22 Fusion of spine, cervical region (principal); M50.30 Other cervical disc degeneration, unspecified cervical region
CPT/HCPCS: 72156; A9575

== ENCOUNTER → 2023-08-06 | Outpatient (CLI) | payer MEDICARE, OTHER, SELFPAY | END | disposition home or self-care (01) | LOC: LAB.FUTURE 08:00 | PROVIDERS: PCP Family Medicine; Visit Provider Family Medicine | DX: Z12.5 Encounter for screening for malignant neoplasm of prostate (principal); I25.10 Atherosclerotic heart disease of native coronary artery without angina pectoris; R06.09 Other forms of dyspnea ==

== ENCOUNTER 2023-10-11 12:30 | Outpatient (RCR) | payer MEDICARE, OTHER, SELFPAY ==
--- NOTE | 2023-11-03 08:41 | HP.PTDCNRP_ITS ---
Patient Information Patient Information: AVI DURHAM was seen in my office for initial evaluation on . The following Plan of Care was established for this patient: Last Seen Last Seen: This patient was last seen in our office . Pertinent comments regarding their Physical therapy will appear below: Dry needling as needed- appropriate for d/c At this point I will be discontinuing this patient from physical therapy. I wo uld be happy to see this patient again in the future if found appropriate by the physician. Thank you! MICHELLE MejiaT
== END 2023-10-11 19:00 | disposition home or self-care (01) ==
LOC: PT 12:30
PROVIDERS: PCP Family Medicine
DX: M43.6 Torticollis (principal)

== ENCOUNTER → 2023-11-22 | Outpatient (CLI) | payer MEDICARE, OTHER, SELFPAY ==
[2023-11-22 10:30] LABS: Absolute Neutrophil Count 4.3 X10^3/uL (2.0-7.7); Basophil# 0.06 X10^3/uL; Basophil% 0.9 % (0-1); Eosinophil# 0.13 X10^3/uL; Eosinophils% 1.9 % (0-5); Hematocrit 44.5 % (40-54); Hemoglobin 14.4 g/dL (13.0-16.5); Lymphocyte % 27.1 % (19-41); Mean Corp Hgb Conc 32.4 g/dL (32-36); Mean Corpuscular Hgb 30.7 pg (27.0-32.0); Mean Corpuscular Volume 94.9 fL (80-94); Mean Platelet Vol. 9.3 fl (6.2-12.0); Monocyte# 0.65 X10^3/uL; Monocyte% 9.3 % (0-10); NRBC Flagged by Analyzer 0 % (0-5); Neutrophil # 4.25 X10^3/uL (2.7-7.7); Neutrophil % 60.4 % (47-70); Platelet Count 227 K/mm3 (150-450); RBC Distribution Width CV 13.2 % (11.6-14.6); RBC Distribution Width SD 45.7 fl (35.1-43.9); Red Blood Count 4.69 M/mm3 (4.6-6.2)
[2023-11-22 10:52] LABS: ALB/GLOB Ratio 1.1 RATIO (0.9-2.4); AST(SGOT) 13 U/L (15-37); Alanine Aminotransfer ALT/SGPT 28 U/L (16-61); Albumin, Serum 3.7 g/dL (3.2-5.0); Alkaline Phosphatase 73 U/L (45-117); Anion Gap 5 (5-15); BUN 19 mg/dL (7-18); BUN/Creat Ratio 20.4 RATIO (10-20); Calcium,Total 8.9 mg/dL (8.5-10.1); Chloride 106 mmol/L (98-107); Cholesterol 150 mg/dL (200); Creatinine, Serum 0.93 mg/dL (0.70-1.30); EST Glomerular Filtration Rate 85 mL/min (>60); Est Glom Filt Rate - Afr Amer 102 mL/min (>60); Globulin 3.5 g/dL (2.2-4.2); Glucose 96 mg/dL (74-106); High Density Lipoprotein 53 mg/dL; PSA,Total - Annual Screen 3.28 ng/mL (0.00-4.00); Protein, Total 7.2 g/dL (6.4-8.2); Sodium Level 139 mmol/L (136-145); Triglycerides 102 mg/dL; Very Low Density Lipoprotein 20 mg/dL (5-40)
== END | disposition home or self-care (01) ==
LOC: MTLAB 08:41
PROVIDERS: PCP Family Medicine; Referring Provider Family Medicine; Visit Provider Family Medicine
DX: Z12.5 Encounter for screening for malignant neoplasm of prostate (principal); R06.09 Other forms of dyspnea; I25.10 Atherosclerotic heart disease of native coronary artery without angina pectoris
CPT/HCPCS: 36415; 80053; 80061; 84153; 85025; G0103

== ENCOUNTER → 2025-01-06 | Outpatient (CLI) | payer MEDICARE, OTHER, SELFPAY ==
--- OUTSIDE RECORDS SUMMARY | 2025-01-06 09:36 | XMS RPT_ITS | CCD ---
Author Organization [facility] ion Partnership [facility] Care Team Providers Care Advertising Strategist Name Role Phone DIANE Rosenthal, Negra Hong Unavailable Unavailruddy Rosenthal RN, Negra Hong Unavailable Unavailruddy Rosenthal RN, Negra Hong Unavailable UnavailHerlinda Hernandez Unavailable DREW WALKER JR. Unavailable Unavailable DREW WALKER JR. Unavailable Unavailable DREW WALKER JR. Unavailable Unavailable Herlinda Meeks Unavailable NOEL ESPITIAN - PROPOSAL REPDREW Primary Care Phys ician KEVIN BAILEY, DR. JUAN Miller Attending Unava ilable ONEL PROPOSAL REP, DREW Primary Care Unavailabl e ONEL PROPOSAL REP, DREW Primary Care Unavailabl e ONEL PROPOSAL REP, DREW Attending Unavailabl e ONEL PROPOSAL REP, DREW Primary Care Unavailabl e ONEL PROPOSAL REP, DREW Attending Unavailruddy BROWN MD., DR. JUAN Miller Attending Unava ilable ONEL PROPOSAL REP, DREW Primary Care UnavailDemian Guillen Primary Care Unavailable Demian Sloan Attending Unavailable Demian Sloan Primary Care Unavailable Demian Sloan Attending Unavailable Referred, Self Attending Unavailable Demian Sloan Primary Care Unavailable Demian Sloan Attending Unavailable Demian Sloan Referring Unavailable Demian Sloan Primary Care Unavailable Allergies Allergy Classification Reported Allergen(s) Allergy Type Date of Onset Reaction(s) Facility (12 sources) amiodarone; Translations: [amiodarone] drug allergy 7 headaches, ED, Weakness, headaches [facility] Work Phone: (8 sources) NKDA; Translations: [NKDA] propensity to adverse reactions 5 NONE [facility] Work Phone: (3 sources) amLODIPine; Translations: [amlodipine] Drug Allergy Headache (finding) [facility] Work Phone: (3 sources) busPIRone; Translations: [buspirone] Drug Allergy Lightheadedness (finding) [facility] Work Phone: Medications Current Medications Medication Drug Class(es) Dates Sig (Normalized) Sig (Original) 24 hr alfuzosin hydrochloride 10 mg extended release oral tablet (9 sources) alpha-Adrenergic Andie Start: 12-13-2020 End: 12-21-2022 alfuzosin 10 mg oral tablet, extended release Dose : 10 mg = 1 tab(s), Oral, qHS, # 90 tab(s), 3 Refill(s), Pharmacy: [facility], Benign prostatic hyperplasia (BPH) with straining on urination, 175.3, cm, 12/26/21 9:13:00 EDT, Height, kg, 12/26/21 9:20:00 EDT, Dosing Weight Start Date: 12/26/21 Stop Date: 12/21/22 Status: Ordered Start: 03-18-2018 End: 03-12-2020 take 1 tablet by mouth once daily alfuzosin ER 10 mg tablet,extended release 24 hr Discontinued 10 MG PO DAILY March 18, 2018 1:00am March 12, 2020 10:19am aspirin 81 mg delayed release oral tablet (20 sources) Nonsteroidal Anti-inflammatory Drug Start: 03-20-2021 aspirin 81 mg ora l delayed release tablet Dose : 81 mg = 1 tab(s), Oral, qDay, # 30 tab(s), 0 Refill(s) Start Date: 03/20/21 Status: Ordered Start: 04-04-2020 take 81 mg by mouth once daily Aspirin Active 81 MG PO DAILY April 04, 2020 1:00am Start: 11-09-2014 End: 12-31-2016 take 1 tablet by mouth once daily ASPIRIN 81 MG TABS One tablet by mouth daily ASPIRIN [id number] Negra Rosenthal RN Start: 11-09-2014 take 1 tablet by dianna th once daily ASPIRIN 81 MG TABS One tablet by mouth daily ASPIRIN [id number] Negra Rosenthal RN Start: 11-08-2014 End: 03-12-2020 take 81 mg by mouth once daily Aspirin Discontinued 81 MG PO DAILY@0800 November 08, 2014 12:00am March 12, 2020 10:20am cholecalciferol 0.05 mg oral capsule (6 sources) Vitamin D Start: 03-12-2020 take 50 ug by mouth once daily Cholecalciferol (Vitamin D3) Active 50 MCG PO DAILY March 12, 2020 1:00am sertraline 50 mg oral tablet (1 source) Serotonin Reuptake Inhibitor Start: 09-17-2020 End: 06-14-2021 Zoloft 50 mg oral tablet Dose : 50 mg = 1 tab(s), Oral, qDay, # 90 tab(s), 2 Refill(s), Pharmacy: [facility], [place] (generalized anxiety disorder), 176, cm, 09/17/20 10:14:00 EDT, Height, kg, 09/17/20 10:14:00 EDT, Dosing Weight Start Date: 09/17/20 Stop Date: 06/14/21 Status: Ordered vitamin b12 1 mg oral capsule (6 sources) Vitamin B12 Start: 04-04-2020 take 1000 ug by mouth once daily Cyanocobalamin (Vitamin B-12) Active 1000 MCG PO DAILY April 04, 2020 1:00am Vitamin C 250 mg oral tablet (2 sources) Start: 03-20-2021 Vitamin C 250 mg oral tablet Dose : 250 mg = 1 tab(s), Oral, qDay, # 30 tab(s), 0 Refill(s) Start Date: 03/20/21 Status: Ordered Vitamin D3 (2 sources) Start: 03-20-2021 Vitamin D3 Dose : 2,000 unit(s) = 1 tab(s), Oral, Daily, 0 Refill(s) Start Date: 03/20/21 Status: Ordered Completed/Discontinued Medications Medication Drug Class(es) Dates Sig (Normalized) Sig (Original) ALPRAZolam 0.5 mg oral tablet (5 sources) Benzodiazepine Start: 12-13-2014 XANAX 0.5 MG TABS as needed ALPRAZOLAM [id number] Luz Cowart RN amiodarone hydrochloride 200 mg oral tablet (10 sources) Antiarrhythmic Start: 07-16-2016 End: 09-17-2016 AMIODARONE HCL 200 MG TABS One tablet by mouth twice daily for two weeks then daily AMIODARONE HCL [id number] Negra Rosenthal RN amoxicillin 875 mg / clavulanate 125 mg oral tablet (6 sources) Penicillin-class Antibacterial Start: 09-26-2018 End: 03-07-2019 take 1 tablet by mouth twice daily Amoxicillin-Pot Clavulanate Discontinued 1 TABLET PO TWICE A DAY September 26, 2018 12:00am March 07, 2019 10:42am atorvastatin 20 mg oral tablet (4 sources) HMG-CoA Reductase Inhibitor Start: 11-09-2014 take 1 tablet by mouth once daily ATORVASTATIN CALCIUM 20 MG TABS One tablet by mouth daily ATORVASTATIN CALCIUM [id number] Dallas Jones MD B.Animalis,Bifid,In Mendoza jeter (6 sources) Start: 08-08-2015 End: 03-18-2018 B.Animalis,Bifid, Infantis,Long Discontinued 1 EACH PO DAILY August 07, 2015 11:00pm March 18, 2018 11:15am Start: 08-08-2015 End: 03-18-2018 B.Animalis,Bifid,Infantis,Lo ng Discontinued 1 EACH PO DAILY August 08, 2015 12:00am March 18, 2018 12:15pm clopidogrel 75 mg oral tablet (20 sources) P2Y12 Platelet Inhibitor Start: 11-08-2014 End: 03-13-2021 take 1 tablet by mouth once daily Clopidogrel (Plavix) 75 mg tablet Discontinued 75 MG PO daily March 11, 2020 10:27am April 04, 2020 8:25pm fish oil (10 sources) Start: 12-13-2014 End: 12-19-2014 take 1 capsule by mouth once daily FISH OIL CAPS One capsule by mouth daily OMEGA-3 FATTY ACIDS CAPS [id number] Dallas Jones MD Start: 12-13-2014 take 1 capsule by [facility] once daily FISH OIL CAPS One capsule by mouth daily OMEGA-3 FATTY ACIDS CAPS [id number] Luz Ariela Sofya CONTRERAS Start: 12-13-2014 take 1 capsule by [facility] once daily FISH OIL CAPS One capsule by mouth daily OMEGA-3 FATTY ACIDS CAPS [id number] Luz Cowart DIANE Start: 12-13-2014 End: 12-19-2014 take 1 capsule by mouth once daily FISH OIL CAPS One capsule by mouth daily OMEGA-3 FATTY ACIDS CAPS [id number] Dallas Jones MD fluticasone propionate 0.05 mg/actuat metered dose nasal spray (15 sources) Corticosteroid Start: 08-08-2015 End: 03-18-2018 Fluticasone Propionate Discontinued 1 SPRAY NASAL DAILY August 08, 2015 12:00am March 18, 2018 12:15pm Start: 07-09-2015 End: 12-31-2016 FLONASE 50 MCG/ACT SUSP Take as directed (0.05 Mg/inh) FLUTICASONE PROPIONATE [id number] Dallas Jones MD Start: 07-09-2015 FLONASE 50 MCG /ACT SUSP Take as directed (0.05 Mg/inh) FLUTICASONE PROPIONATE Dallas Jones MD linaclotide 0.145 mg oral capsule (9 sources) Guanylate Cyclase-C Agonist Start: 02-05-2016 End: 12-31-2016 LINZESS 145 MCG CAPS One tablet by mouth as needed LINACLOTIDE [id number] Dallas Jones MD Start: 02-05-2016 LINZESS 145 MC G CAPS One tablet by mouth as needed LINACLOTIDE [id number] Dallas Jones MD lisinopril 5 mg oral tablet (10 sources) Angiotensin Converting Enzyme Inhibitor Start: 11-09-2014 End: 12-19-2014 take 1 tablet by mouth once daily LISINOPRIL 5 MG TABS One half tablet by mouth daily LISINOPRIL [id number] Dallas Jones MD 24 hr metoprolol succinate 25 mg extended release oral tablet (20 sources) beta-Adrenergic Andie Start: 03-18-2018 End: 03-07-2019 take 2 tablets by mouth once daily Metoprolol Succinate (Toprol Xl) 25 mg tablet extended release 24 hr Discontinued 12.5 MG PO daily March 18, 2018 12:15pm March 07, 2019 10:34am Start: 06-14-2017 End: 03-18-2018 take 1 tablet by mouth once daily Metoprolol Succinate (Toprol Xl) 25 mg tablet extended release 24 hr Discontinued 25 MG PO daily June 14, 2017 2:20pm March 18, 2018 12:15pm Start: 01-20-2017 take 1 tablet by dianna th once daily TOPROL XL 25 MG [id number] One tablet by mouth daily METOPROLOL SUCCINATE [id number] Dallas Jones MD Start: 05-28-2015 End: 07-16-2016 take 1 tablet by mouth once daily TOPROL XL 25 MG [id number] One tablet by mouth daily METOPROLOL SUCCINATE [id number] Dallas Jones MD Start: 05-28-2015 take 1 tablet by dianna th once daily TOPROL XL 25 MG [id number] One tablet by mouth daily METOPROLOL SUCCINATE [id number] Dallas Jones MD Start: 05-28-2015 End: 07-16-2016 take 1 tablet by mouth once daily TOPROL XL 25 MG [id number] One tablet by mouth daily METOPROLOL SUCCINATE [id number] Dallas Jones MD Start: 11-08-2014 End: 06-14-2017 take 25 mg by mouth once daily Metoprolol Tartrate Dis continued 25 MG PO DAILY November 08, 2014 12:00am June 14, 2017 2:18pm pantoprazole 40 mg delayed release oral tablet (20 sources) Proton Pump Inhibitor Start: 04-06-2020 End: 06-14-2021 Pantoprazole Discontinued 40 MG PO TWICE A DAY April 06, 2020 12:20pm March 13, 2021 11:16am 40 mg twice daily for 1 month then follow-up Dr. Quintanilla Start: 03-07-2019 End: 03-12-2020 Pantoprazole Discontinued PO March 07, 2019 1:00am March 12, 2020 10:21am Start: 03-07-2019 End: 04-06-2020 take 40 mg by mouth once daily Pantoprazole Discontinu ed 40 MG PO DAILY March 12, 2020 10:19am April 06, 2020 12:21pm Start: 07-09-2015 End: 08-06-2015 take 1 tablet by mouth once daily PROTONIX 20 MG TBEC One tablet by mouth daily PANTOPRAZOLE SODIUM [id number] Dallas Jones MD penicillin v potassium 500 mg oral tablet (6 sources) Start: 04-04-2020 End: 03-13-2021 take 500 mg by mouth four times daily Penicillin V Potassium Discontinued 500 MG PO 4 TIMES DAILY April 04, 2020 1:00am March 13, 2021 11:16am PROBIOTIC PRODUCT (2 sources) Start: 07-09-2015 take 1 tablet by mouth once daily 4X PROBIOTIC TABS One tablet by mouth daily PROBIOTIC PRODUCT [id number] Dallas Jones MD Start: 07-09-2015 End: 01-09-2016 take 1 tablet by mouth once daily 4X PROBIOTIC TABS One tablet by mouth daily PROBIOTIC PRODUCT [id number] Patti Toribio PA-C PROBIOTIC PRODUCT (8 sources) Start: 07-09-2015 take 1 tablet by mouth once daily 4X PROBIOTIC TABS One tablet by mouth daily PROBIOTIC PRODUCT [id number] Dallas Jones MD Start: 07-09-2015 End: 01-09-2016 take 1 tablet by mouth once daily 4X PROBIOTIC TABS One tablet by mouth daily PROBIOTIC PRODUCT [id number] Patti Toribio PA-C Start: 07-09-2015 take 1 tablet by dianna th once daily 4X PROBIOTIC TABS One tablet by mouth daily PROBIOTIC PRODUCT [id number] Dallas Jones MD Start: 07-09-2015 End: 01-09-2016 take 1 tablet by mouth once daily 4X PROBIOTIC TABS One tablet by mouth daily PROBIOTIC PRODUCT [id number] Patti Toribio PA-C RANITIDINE HCL TABS (4 sources) Histamine-2 Receptor Antagonist Start: 12-31-2016 take 1 tablet by mouth once daily ZANTAC 75 TABS One tablet by mouth daily RANITIDINE HCL TABS [id number] Dallas Jones MD Start: 12-31-2016 take 1 tablet by dianna th once daily ZANTAC 75 TABS One tablet by mouth daily RANITIDINE HCL TABS [id number] Dallas Jones MD rivaroxaban 15 mg oral tablet (4 sources) Factor Xa Inhibitor Start: 12-31-2016 take 1 tablet by mouth once daily XARELTO 15 MG TABS One tablet by mouth daily RIVAROXABAN [id number] Dallas Jones MD simvastatin 20 mg oral tablet (20 sources) HMG-CoA Reductase Inhibitor Start: 06-18-2017 End: 03-24-2022 take 20 mg by mouth once daily in the evening Simvastatin Discontinued 20 MG PO EVERY EVENING March 11, 2020 10:27am April 04, 2020 8:25pm Start: 11-09-2014 SIMVASTATIN 20 MG TABS one tablet each evening SIMVASTATIN [id number] Negra Rosenthal RN Start: 11-08-2014 End: 06-18-2017 take 20 mg by mouth once daily Simvastatin Discontinue d 20 MG PO DAILY June 17, 2017 5:36pm June 18, 2017 10:16am tobramycin 3 mg/ml ophthalmic solution (6 sources) Aminoglycoside Antibacterial Start: 09-26-2018 End: 03-07-2019 Tobramycin Discontinued 1 DRP OPHTHALMIC Q2H September 26, 2018 12:00am March 07, 2019 10:42am to each eye while awake for 5 days Problems Active Problems Problem Classification Problem Date Documented Date Episodic/Chronic Anxiety disorders (3 sources) Generalized anxiety disorder 08-23-2020 Chronic Cardiac dysrhythmias (14 sources) Paroxysmal atrial fibrillation; Translations: [Atrial fibrillation] Onset: 05-28-19 16 05-28-2015 Chronic Coronary atherosclerosis and other heart disease (20 sources) Coronary atherosclerosis; Translations: [Atherosclerotic heart disease of [place] coronary artery without angina pectoris] Onset: 11-10-19 Resolved : 01-22-20 16 10-09-2015 Chronic Coronary atherosclerosis and other heart disease (8 sources) Presence of coronary angioplasty implant and graft; Translations: [Stented coronary artery] Onset: 11-10-19 15 11-09-2014 Episodic Diseases of white blood cells (3 sources) Leukopenia 09-17-2020 Chronic Disorders of lipid metabolism (14 sources) Hyperlipidemia; Translations: [Hyperlipidemia, unspecified] Onset: 12-14-19 15 12-13-2014 Chronic Esophageal disorders (6 sources) Gardner's esophagus; Translations: [Gastroesophageal reflux disease] 12-10-2016 Chronic Hyperplasia of prostate (3 sources) Straining on urination due to benign prostatic hypertrophy 11-01-2020 Chronic Inflammation; infection of eye (except that caused by tuberculosis or sexually transmitteddisease) (6 sources) Conjunctivitis; Translations: [Unspecified conjunctivitis] 04-04-2020 Episodic Nonspecific chest pain (11 sources) Chest pain; Translations: [Chest pain, unspecified] Onset: 08-06-19 16 08-06-2015 Episodic Nutritional deficiencies (2 sources) Vitamin D deficiency 03-20-2021 Chronic Other circulatory disease (3 sources) H/O: heart disorder 08-28-2020 Episodic Other gastrointestinal disorders (3 sources) Irritable bowel syndrome 12-10-2016 Chronic Other inflammatory condition of skin (3 sources) Psoriasis 09-17-2020 Chronic Other non-traumatic joint disorders (3 sources) Multiple joint pain 12-20-2018 Episodic Other nutritional; endocrine; and metabolic disorders (3 sources) History of hypercholesterolemia 08-28-2020 Episodic Other screening for suspected conditions (not mental disorders or infectious disease) (4 sources) Raised prostate specific antigen; Translations: [Encounter for screening for malignant neoplasm of prostate] Onset: 12-08-19 24 10-31-2020 Episodic Other upper respiratory infections (6 sources) Acute maxillary sinusitis; Translations: [Acute maxillary sinusitis, unspecified] 04-04-2020 Episodic Unclassified (4 sources) Long-term drug therapy; Translations: [Other senior care (current) drug therapy] Onset: 12-14-19 15 12-13-2014 Unclassified (1 source) Unknown / UNK(Unknown) Onset: 10-13-19 17 Unclassified (18 sources) Patient encounter status 08-23-2020 Past or Other Problems Problem Classification Problem Date Documented Da te Episodic/Chronic Cardiac dysrhythmias (5 sources) Palpitations; Translations: [Palpitations] Onset: 06-12-2016 06-12-2016 Episodic Other aftercare (1 source) Other infection prevention specialist (current) drug therapy; Translations: [Other infection prevention specialist (current) drug therapy] Onset: 12-13-2014 12-13-2014 Episodic Residual codes; unclassified (1 source) Family history of sudden ; Translations: [Family history of other specified conditions] 12-19-2014 Episodic Spondylosis; intervertebral disc disorders; other back problems (1 source) Fusion of spine, cervical region; Translations: [Fusion of spine, cervical region] Onset: 03-11-2023 Episodic Unclassified (9 sources) Family history of ischemic heart disease and other diseases of the circulatory system; Translations: [Family history of sudden ] 12-19-2014 Episodic Unclassified (8 sources) Percutaneous transluminal coronary angioplasty ; Translations: [Coronary angioplasty status] Onset: 11-02-2014 Resolved: 11-09-2014 11-09-2014 Unclassified (1 source) Z12.5 Onset: 10-12-2016 Results Test Name Value Interpretation Reference Range Facility CBC W/Diff, Automatedon - Absolute Lymph 1.90 X10 3/uL Normal 0.83-4.51 [facility] Comment on above: Performed By: #### L 100.0100, L500.4050, L501.9910, L500.4100 #### [facility] [address] [place], [address] Absolute Neut 4.3 X10 3/uL Normal 2.0-7.7 [facility] Comment on above: Performed By: #### L 100.0100, L500.4050, L501.9910, L500.4100 #### [facility] [address] [place], [address] Basophils/100 WBC (Bld) 0.9 % Normal 0-1 [facility] Comment on above: Performed By: #### L 100.0100, L500.4050, L501.9910, L500.4100 #### [facility] [address] [place], [address] Eosinophils/100 WBC (Bld) 1.9 % Normal 0-5 [facility] Comment on above: Performed By: #### L 100.0100, L500.4050, L501.9910, L500.4100 #### [facility] [address] [place], [address] Erythrocyte distribution width (RBC) [Ratio] 13.2 % Normal 11.6-14.6 [facility] Comment on above: Performed By: #### L 100.0100, L500.4050, L501.9910, L500.4100 #### [facility] [address] [place], [address] Hematocrit (Bld) [Volume fraction] 44.5 % Normal 40-54 [facility] Comment on above: Performed By: #### L 100.0100, L500.4050, L501.9910, L500.4100 #### [facility] [address] [place], [address] Hemoglobin (Bld) [Mass/Vol] 14.4 g/dL Normal 13.0-16.5 [facility] Comment on above: Performed By: #### L 100.0100, L500.4050, L501.9910, L500.4100 #### [facility] [address] [place], [address] IG% 0.400 Normal 0.0-0.9 [facility] Comment on above: Result Comment: IG% - Immature Granulocytes (promyelocytes, myelocytes and metamyelocytes) > 1% indicates that a LEFT SHIFT is Present. Performed By: #### L 100.0100, L500.4050, L501.9910, L500.4100 #### [facility] [address] [place], [address] Lymphocytes/100 WBC (Bld) 27.1 % Normal 19-41 [facility] Comment on above: Performed By: #### L 100.0100, L500.4050, L501.9910, L500.4100 #### [facility] [address] [place], [address] MCH (RBC) [Entitic mass] 30.7 pg Normal 27.0-32.0 [facility] Comment on above: Performed By: #### L 100.0100, L500.4050, L501.9910, L500.4100 #### [facility] [address] [place], [address] MCHC (RBC) [Mass/Vol] 32.4 g/dL Normal 32-36 [facility] Comment on above: Performed By: #### L 100.0100, L500.4050, L501.9910, L500.4100 #### [facility] [address] [place], [address] MCV (RBC) [Entitic vol] 94.9 fL High 80-94 [facility] Comment on above: Performed By: #### L 100.0100, L500.4050, L501.9910, L500.4100 #### [facility] [address] [place], [address] Monocytes/100 WBC (Bld) 9.3 % Normal 0-10 [facility] Comment on above: Performed By: #### L 100.0100, L500.4050, L501.9910, L500.4100 #### [facility] [address] [place], [address] Neutrophils/100 WBC (Bld) 60.4 % Normal 47-70 [facility] Comment on above: Performed By: #### L 100.0100, L500.4050, L501.9910, L500.4100 #### [facility] [address] [place], [address] Nucleated RBC (Bld) [#/Vol] 0 10*3/uL Normal 0-5 [facility] Comment on above: Performed By: #### L 100.0100, L500.4050, L501.9910, L500.4100 #### [facility] [address] [place], [address] Platelet mean volume (Bld) [Entitic vol] 9.3 fL Normal 6.2-12.0 [facility] Comment on above: Performed By: #### L 100.0100, L500.4050, L501.9910, L500.4100 #### [facility] [address] [place], [address] Platelets (Bld) [#/Vol] 227 10*3/uL Normal 150-450 [facility] Comment on above: Performed By: #### L 100.0100, L500.4050, L501.9910, L500.4100 #### [facility] [address] [place], [address] RBC (Bld) [#/Vol] 4.69 10*6/uL Normal 4.6-6.2 [facility] Comment on above: Performed By: #### L 100.0100, L500.4050, L501.9910, L500.4100 #### [facility] [address] [place], [address] RDW SD 45.7 fl High 35.1-43.9 [facility] Comment on above: Performed By: #### L 100.0100, L500.4050, L501.9910, L500.4100 #### [facility] [address] [place], [address] WBC (Bld) [#/Vol] 7.0 10*3/uL Normal 4.4-11.0 [facility] Comment on above: Performed By: #### L 100.0100, L500.4050, L501.9910, L500.4100 #### [facility] [address] [place], [address] Comprehensive Metabolic Prof ilon 11-22-2023 Albumin [Mass/Vol] 3.7 g/dL Normal 3.2-5.0 [facility] Comment on above: Performed By: #### L 100.0100, L500.4050, L501.9910, L500.4100 #### [facility] [address] [place], [address] Albumin/Globulin [Mass ratio] 1.1 {ratio} Normal 0.9-2.4 [facility] Comment on above: Performed By: #### L 100.0100, L500.4050, L501.9910, L500.4100 #### [facility] [address] [place], [address] ALK P 73 U/L Normal 45-117 [facility] Comment on above: Performed By: #### L 100.0100, L500.4050, L501.9910, L500.4100 #### [facility] [address] [place], [address] ALT [Catalytic activity/Vol] 28 U/L Normal 16-61 [facility] Comment on above: Performed By: #### L 100.0100, L500.4050, L501.9910, L500.4100 #### [facility] [address] [place], [address] AST [Catalytic activity/Vol] 13 U/L Low 15-37 [facility] Comment on above: Performed By: #### L 100.0100, L500.4050, L501.9910, L500.4100 #### [facility] [address] [place], [address] Bilirubin [Mass/Vol] 0.90 mg/dL Normal 0.20-1.00 [facility] Comment on above: Result Comment: For patients on eltrombopag therapy, use of Dimension [place] TBIL is not recommended. Performed By: #### L 100.0100, L500.4050, L501.9910, L500.4100 #### [facility] [address] [place], [address] BUN/CRE 20.4 RATIO High 10-20 [facility] Comment on above: Performed By: #### L 100.0100, L500.4050, L501.9910, L500.4100 #### [facility] [address] [place], [address] CA,Total 8.9 mg/dL Normal 8.5-10.1 [facility] Comment on above: Performed By: #### L 100.0100, L500.4050, L501.9910, L500.4100 #### [facility] [address] [place], [address] Chloride [Moles/Vol] 106 mmol/L Normal 98-107 [facility] Comment on above: Performed By: #### L 100.0100, L500.4050, L501.9910, L500.4100 #### [facility] [address] [place], [address] CO2 [Moles/Vol] 28.0 mmol/L Normal 21.0-32.0 [facility] Comment on above: Performed By: #### L 100.0100, L500.4050, L501.9910, L500.4100 #### [facility] [address] [place], [address] Creatinine [Mass/Vol] 0.93 mg/dL Normal 0.70-1.30 [facility] Comment on above: Result Comment: The validity of the calculated GFR GFRAA in patients over 70 years has not been determined. Clinical correlation is essential. Performed By: #### L 100.0100, L500.4050, L501.9910, L500.4100 #### [facility] [address] [place], [address] EST GFR - AA 102 mL/min Normal >60 [facility] Comment on above: Result Comment: Afri can [place]ian GFR Calc Performed By: #### L 100.0100, L500.4050, L501.9910, L500.4100 #### [facility] [address] [place], [address] GAP 5 Normal 5-15 [facility] Comment on above: Performed By: #### L 100.0100, L500.4050, L501.9910, L500.4100 #### [facility] [address] [place], [address] GFR/1.73 sq M.predicted among non-blacks MDRD (S/P/Bld) [Vol rate/Area] 85 mL/min/{1.73_m2} Normal >60 [facility] Comment on above: Result Comment: Non- GFR Calc Performed By: #### L 100.0100, L500.4050, L501.9910, L500.4100 #### [facility] [address] [place], [address] Globulin (S) [Mass/Vol] 3.5 g/dL Normal 2.2-4.2 [facility] Comment on above: Performed By: #### L 100.0100, L500.4050, L501.9910, L500.4100 #### [facility] [address] [place], [address] Glucose [Mass/Vol] 96 mg/dL Normal 74-106 [facility] Comment on above: Performed By: #### L 100.0100, L500.4050, L501.9910, L500.4100 #### [facility] [address] [place], [address] Potassium [Moles/Vol] 4.0 mmol/L Normal 3.5-5.1 [facility] Comment on above: Performed By: #### L 100.0100, L500.4050, L501.9910, L500.4100 #### [facility] [address] [place], [address] Sodium [Moles/Vol] 139 mmol/L Normal 136-145 [facility] Comment on above: Performed By: #### L 100.0100, L500.4050, L501.9910, L500.4100 #### [facility] [address] [place], [address] T PROT 7.2 g/dL Normal 6.4-8.2 [facility] Comment on above: Performed By: #### L 100.0100, L500.4050, L501.9910, L500.4100 #### [facility] [address] [place], [address] Urea nitrogen [Mass/Vol] 19 mg/dL High 10-20 [facility] Comment on above: Performed By: #### L 100.0100, L500.4050, L501.9910, L500.4100 #### [facility] [address] [place], [address] Lipid Profileon 11-22-2023 Cholesterol [Mass/Vol] 150 mg/dL Normal 200 [facility] Comment on above: Result Comment: <200 mg/dL Desirable 200-240 mg/dL Borderline >240 mg/dL High Risk Performed By: #### L 100.0100, L500.4050, L501.9910, L500.4100 #### [facility] [address] [place], [address] Cholesterol in HDL [Mass/Vol] 53 mg/dL Normal [facility] Comment on above: Result Comment: The drugs N-Acetylcysteine and Metamizole may falsely depress this assay. Reference Range HDL <40 mg/dL Low HDL Cholesterol HDL >or= 60 mg/dL High HDL Cholesterol Performed By: #### L 100.0100, L500.4050, L501.9910, L500.4100 #### [facility] [address] [place], [address] Cholesterol in LDL [Mass/Vol] 77 mg/dL Normal 0-130 [facility] Comment on above: Performed By: #### L 100.0100, L500.4050, L501.9910, L500.4100 #### [facility] [address] [place], [address] Cholesterol in VLDL [Mass/Vol] 20 mg/dL Normal 5-40 [facility] Comment on above: Performed By: #### L 100.0100, L500.4050, L501.9910, L500.4100 #### [facility] [address] [place], [address] Triglyceride [Mass/Vol] 102 mg/dL Normal [facility] Comment on above: Result Comment: The drugs N-Acetylcysteine and Metamizole may falsely depress this assay. Serum Triglycerides Reference Interval Normal <150 mg/dL Borderline high 150 - 199 mg/dL High 200 - 499 mg/dL Very High > or = 500 mg/dL Performed By: #### L 100.0100, L500.4050, L501.9910, L500.4100 #### [facility] [address] [place], [address] PSA,Total - Annual Screenon 11-22-2023 PSA,TOT SCREEN 3.28 ng/mL Normal 0.00-4.00 [facility] Comment on above: Result Comment: This test was performed using the TPSA assay method for the [employer] chemistry system. Values obtained with different assay methods cannot be used interchangably. When changing PSA assays in the course of monitoring a patient, additional sequential testing should be carried out to confirm baseline values. Performed By: #### L 100.0100, L500.4050, L501.9910, L500.4100 #### [facility] [address] [facility] [address] [place], [place], [address] Basophil percentageOrdered B y: Demian Nathalia on 03-05-2023 Basophil percentage < 1.0 mg/dL 0.70-1.30 [facility] CREATININE FINGERSTICKon CREATININE WB < 1.0 Normal 0.70-1.30 [facility] Comment on above: Performed By: #### L 9100.0200 #### [facility] [address] [facility] [place], [place], [address] EGFR WB > 60.0000 Normal >60 [facility] Comment on above: Performed By: #### L 9100.0200 #### [facility] [address] [place], [place], [address] No Panel InformationOrdered By: Demian Sloan on 03-05-2023 Bedside Estimated GFR (eGFR) > 60.0000 mL/min >60 [facility] Spine Cervical W/WO Contrast on 03-05-2023 Spine Cervical W/WO Contrast [facility] [address] [place] [address] Spine Cervical W/WO Contrast MR#: [id number] Acct: [id number] Name: AVI DURHAM Rep #: [id number] : 1950 M 72 From: Brian Qiu MD PCP: Dr. Demian Sloan DO Status: REG CLI Study: Spine Cervical W/WO Contrast Date of Exam: Exam# [id number] Ordering Dr: Demian Sloan DO [id number] STUDY: MRI CERVICAL SPINE WITH AND WITHOUT CONTRAST REASON FOR EXAM: Male, 72 years old. NECK PAIN POST LAMINECTOMY TECHNIQUE: Standardized fat and water weighted pulse sequences were obtained in the sagittal and axial following administration of 15 mL of IV Clariscan. COMPARISON: None FINDINGS: Normal foramen magnum and brainstem-cervical cord junction. Normal craniovertebral junction. Normal anterior atlantoaxial articulation. Normal odontoid process. Normal cervical lordosis. Postsurgical absence of the spinous processes and lamina from C3 down to C7. Normal vertebral bodies and remaining visualized osseous elements. C2-3: Normal endplates. Normal disc height. Mild ventral extradural defect due to small posterior bulging annulus. Normal central canal and intervertebral neural foramina. C3-4: Normal endplates. Moderate disc space height narrowing. Right posterior marginal spur causing ventral extradural defect. Capacious central canal and intervertebral neural foramina. Articular pillar screws and rods causing signal distortion artifacts. Postsurgical absence of the spinous processes and lamina. C4-5: Normal endplates. Minimal disc space height narrowing. No ventral extradural defect. Normal central canal and intervertebral neural foramina. Postsurgical absence of the spinous processes and lamina. Articular pillar screws and rods causing signal distortion artifacts. C5-6: Normal endplates. Mild disc space height narrowing. No ventral extradural defect. Postsurgical absence of the spinous processes and lamina. Articular pillar screws and rods causing signal distortion artifacts. C6-7: Normal endplates. Mild disc space height narrowing. Minimal degenerative retrolisthesis of C6 on C7. Capacious central canal. Normal intervertebral neural foramina. Postsurgical absence of the spinous processes and lamina. The articular pillar screws and rods causing signal distortion artifacts. C7-T1: Normal endplates. Normal disc height. No ventral extradural defect. Normal central canal and intervertebral neural foramina. Postsurgical absence of the C7 spinous processes and lamina. T1-T2, T2-T3 and T3-T4: (Sagittal only). Normal endplates. Normal disc height, signal and morphology. Normal central canal and intervertebral neural foramina. Normal cervical cord. Normal upper thoracic spinal cord. Normal included portions of brainstem and cerebellum. Following IV contrast administration, the fat suppression obliterates the central canal from the upper C3 vertebral body level down to the lower C7 vertebral body level. The nonfat suppressed postcontrast T1 axial images show no suspicious abnormal enhancing lesions intradurally and extradurally. Normal visualized soft tissue structures. MRI/Spine Cervical W/WO Contrast IMPRESSION: 1. No MRI evidence of cervical extruded disc fragment, disc protrusion, spinal stenosis or cervical nerve root displacement. 2. Capacious central canal and normal intervertebral neural foramina from C2-C3 down to T3-T4 disc space levels. 3. No abnormal enhancing lesions intradurally and extradurally throughout the cervical spine. Electronically Signed: Brian Qiu MD at 8:45 EST , CC: DR. TRACEY ALCARAZ; Dr. Demian Sloan DO Vb Net Developer: Signed Normal [facility] PT D/C Summary (1)on 023 PT D/C Summary (1) [facility] [address] [place] [address] [address] [place] [address] / REHABILITATION SERVICES DISCHARGE SUMMARY MR#: [id number] Acct: [id number] Name: AVI DURHAM Rep #: [id number] : 1950 72 From: Alok Prieto PT, Cert. T, [facility] Referring Dr.: Dr. Tracey Alcaraz MD Status: REG RCR Insurance: MEDICARE PART A B [facility] Discharge Summary D/C summary: It has been my pleasure to treat AVI DURHAM referred by Dr. Tracey Alcaraz MD, with the diagnosis of S/P POST LAMINECTOMY WITH SPINAL FUSION for a total of 9 visit(s). Discharge Date: Please see the following information for a summary of their discharge status. Subjective Subjective: Patient has major issue with cramp which has been there every since surgery ,walking ,bending and extended sitting only relieve when sitting Pain Bilateral Neck: Pain Intensity (Out of 10): 3 Left Shoulder: Pain Intensity (Out of 10): 3 Overall Improvement % Improvement: 25 Objective Objective/Function: POSTURE: mild forward posture. NEURO: denies paresthesia/tingling ,reflexes L3-4,L4-5,L5-S1 2/3. PALAPTION: UT/levator, scalene left >right. CERVICAL ROM: flexion mod loss ,rotation mod loss ,lateral flexion mod/severe loss ,extension severe loss. MMT: BUE grossly 4/5 except 4-/5 Cramp is unchanged with walking and standing Goals Goal 1:: I with HEP for cervical spine s/p surgery Goal 2:: Patient to demonstrate 50% improvement with improved function and less pain with walking/standing. 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 Plan Plan: D/C D/C Information d/c sentence: If there are questions or concerns regarding this patient's physical therapy, please feel free to call me at [phone]. Thank you for the referral of this patient. Sincerely, Alok Prieto, PT, Cert MDT, OCS Balance/Gait/Functional tests Balance/Special Test Scores Oswestry Neck Score: 26 Improvement % Improvement: 25 12/10/22 1137 CC: ACCOUNTS PAYABLE PAYROLL COORDINATORHelgaC Drew Hyman; Dr. Tracey Alcaraz MD JLA Signed Normal [facility] Absolute lymphocyte countOrd ered By: Demian Sloan on 10-19-2022 Lymphocytes Auto (Unsp spec) [#/Vol] 1.20 10*3/uL 0.83-4.51 [facility] Basophil percentageOrdered B y: Demian Sloan on 10-19-2022 Basophils/100 WBC (Bld) 0.9 % 0-1 [facility] Bilirubin [Mass/Vol] 1.00 mg/dL 0.20-1.00 [facility] Comment on above: For patients on eltr ombopag therapy, use of Dimension [place] TBIL is not recommended. Chloride [Moles/Vol] 103 mmol/L 98-107 [facility] Cholesterol [Mass/Vol] 109 mg/dL <200 [facility] Comment on above: <200 mg/dL Desirable 200-240 mg/dL Borderline >240 mg/dL High Risk Eosinophils/100 WBC (Bld) 1.3 % 0-5 [facility] Glucose [Mass/Vol] 101 mg/dL 74-106 [facility] Comment on above: Fasting Glucose resu lt from 100 to 125 mg/dL suggests IMPAIRED HOMEOSTASIS per A.D.A. criteria. Neutrophils (Bld) [#/Vol] 3.6 10*3/uL 2.0-7.7 [facility] Neutrophils/100 WBC (Bld) 64.7 % 47-70 [facility] Potassium [Moles/Vol] 3.7 mmol/L 3.5-5.1 [facility] Protein [Mass/Vol] 6.9 g/dL 6.4-8.2 [facility] Sodium [Moles/Vol] 136 mmol/L 136-145 [facility] Triglyceride [Mass/Vol] 111 mg/dL <199 [facility] Comment on above: The drugs N-Acetylcy steine and Metamizole may falsely depress this assay.Serum Triglycerides Reference Interval Normal <150 mg/dL Borderline high 150 - 199 mg/dL High 200 - 499 mg/dL Very High > or = 500 mg/dL WBC (Bld) [#/Vol] 5.6 10*3/uL 4.4-11.0 [facility] Blood erythrocytes count (nu mber/volume)Ordered By: Demian Sloan on 10-19-2022 RBC (Bld) [#/Vol] 4.29 10*6/uL 4.6-6.2 [facility] Blood hemoglobin measurement (mass/volume)Ordered By: Demian Sloan on 10-19-2022 Hemoglobin (Bld) [Mass/Vol] 13.2 g/dL 13.0-16.5 [facility] Blood lymphocytes/100 leukoc ytesOrdered By: Demian Sloan on 10-19-2022 Lymphocytes/100 WBC (Bld) 21.5 % 19-41 [facility] Blood monocytes/100 leukocyt esOrdered By: Demian Sloan on 10-19-2022 Monocytes/100 WBC (Bld) 11.4 % 0-10 [facility] Blood platelet mean volumeOr dered By: Demian Sloan on 10-19-2022 Platelet mean volume (Bld) [Entitic vol] 9.3 fL 6.2-12.0 [facility] Determination of erythrocyte mean corpuscular volume (MCV)Ordered By: Demian Sloan on 10-19-2022 MCV (RBC) [Entitic vol] 96.5 fL 80-94 [facility] Hematocrit Auto (Bld) [Volum e fraction]Ordered By: Demian Sloan on 10-19-2022 Hematocrit (Bld) [Volume fraction] 41.4 % 40-54 [facility] Laboratory - Chemistry and C hemistry - challengeOrdered By: Demian Sloan on 10-19-2022 ALP [Catalytic activity/Vol] 87 U/L 45-117 [facility] ALT [Catalytic activity/Vol] 21 U/L 16-61 [facility] CO2 [Moles/Vol] 29.0 mmol/L 21.0-32.0 [facility] Globulin (S) [Mass/Vol] 3.3 g/dL 2.2-4.2 [facility] Urea nitrogen/Creatinine [Mass ratio] 12.6 mg/mg 10-20 [facility] - Hematology and Cell countsOrdered By: Demian Sloan on 10-19-2022 Erythrocyte distribution width (RBC) [Entitic vol] 45.1 fL 35.1-43.9 [facility] Erythrocyte distribution width (RBC) [Ratio] 12.7 % 11.6-14.6 [facility] Immature granulocytes/100 WBC (Bld) 0.200 % 0.0-0.9 [facility] Comment on above: IG% - Immature Granu locytes (promyelocytes, myelocytes and metamyelocytes) > 1% indicates that a LEFT SHIFT is Present. MCH (RBC) [Entitic mass] 30.8 pg 27.0-32.0 [facility] Nucleated RBC/100 WBC (Bld) [Ratio] 0 % 0-5 [facility] MCHC Auto (RBC) [Mass/Vol]Or dered By: Demian Solan on 10-19-2022 MCHC (RBC) [Mass/Vol] 31.9 g/dL 32-36 [facility] No Panel InformationOrdered By: Demian Sloan on 10-19-2022 Estimated GFR (MDRD) Amer 111 mL/min >60 [facility] Comment on above: GFR Calc Estimated GFR (MDRD) Non-Af Amer 92 mL/min >60 [facility] Comment on above: Non- GFR Calc Prostate Specific Antigen Screen 3.40 ng/mL 0.00-4.00 [facility] Comment on above: This test was perfor med using the TPSA assay method for the[employer] chemistry system. Values obtained with differentassay methods cannot be used interchangably.When changing PSA assays in the course of monitoring apatient, additional sequential testing should be carriedout to confirm baseline values. Platelets bldOrdered By: Makayla Sloan on 10-19-2022 Platelets (Bld) [#/Vol] 247 10*3/uL 150-450 [facility] Serum or plasma albumin delio urement (mass/volume)Ordered By: Demian Sloan on 10-19-2022 Albumin [Mass/Vol] 3.6 g/dL 3.2-5.0 [facility] Serum or plasma albumin/glob ulin mass ratioOrdered By: Demian Sloan on 10-19-2022 Albumin/Globulin [Mass ratio] 1.1 {ratio} 0.9-2.4 [facility] Serum or plasma calcium delio urement (mass/volume)Ordered By: Demian Sloan on 10-19-2022 Calcium [Mass/Vol] 9.1 mg/dL 8.5-10.1 [facility] Serum or plasma cholesterol in HDL measurement (mass/volume)Ordered By: Demian Sloan on 10-19-2022 Cholesterol in HDL [Mass/Vol] 48 mg/dL >40 [facility] Comment on above: The drugs N-Acetylcy steine and Metamizole may falsely depress this assay. Reference Range HDL <40 mg/dL Low HDL Cholesterol HDL >or= 60 mg/dL High HDL Cholesterol Serum or plasma cholesterol in VLDL measurement (mass/volume)Ordered By: Demian Sloan on 10-19-2022 Cholesterol in VLDL [Mass/Vol] 22 mg/dL 5-40 [facility] Serum or plasma creatinine m easurement (mass/volume)Ordered By: Demian Sloan on 10-19-2022 Creatinine [Mass/Vol] 0.87 mg/dL 0.70-1.30 [facility] Comment on above: The validity of the calculated GFR & GFRAA in patients over 70 years has not been determined. Clinical correlation is essential. Serum or plasma low density lipoprotein (LDL) cholesterol measurement (mass/volume)Ordered By: Demian Sloan on 10-19-2022 Cholesterol in LDL [Mass/Vol] 39 mg/dL 0-130 [facility] Serum or plasma urea nitroge n measurement (mass/volume)Ordered By: Demian Sloan on 10-19-2022 Urea nitrogen [Mass/Vol] 11 mg/dL 7-18 [facility] Thin prep Papanicolaou smear with manual screeningOrdered By: Demian Nathalia on 10-19-2022 Thin prep Papanicolaou smear with manual screening 16 U/L 15-37 [facility] Thin prep Papanicolaou smear with manual screening 4 5-15 [facility] Culture, urineOrdered By: Xin Edwards on 10-16-2022 Bacteria identified Cx Nom (U) Culture exhibits no growth. [facility] PSAFon 12-17-2021 PSA, % Free 26 % Normal [facility] ([place] Comment on above: Result Comment: Tota l and free PSA test methodology used is the Electrochemiluminescence Immunoassay by [employer]. Total or free PSA values by differing methodologies cannot be interchanged. The below table lists the probability of finding prostate cancer upon needle biopsy, for men 50 years or older and total PSA concentrations from 4.0-10.0 ng/mL. Results should be interpreted within the broader clinical context. Free PSA(%) 50-59 years 60-69 years >69 years <11 49.2% 57.5% 64.5% 11-18 26.9% 33.9% 40.8% 19-25 18.3% 23.9% 29.7% >25 9.1% 12.2% 15.8% Performed By: [facility] [address] [place] [address] Bow Maker Machine Tender: Wilman Jama III, M.D. CLIA#: [id number] Performed By: #### C MP, LIPID, GFR, PSA, VIDH #### [address] [address] PSA, Diagnostic 2.33 ng/mL Normal <2.60 [facility] Comment on above: Result Comment: Tota l PSA test methodology used is the Electrochemiluminescence Immunoassay by [employer]. Total PSA values by differing methodologies cannot be interchanged. Performed By: [facility] [address] [place] [address] [employer] Maker Machine Tender: Wilman Jama III, M.D. CLIA#: [id number] Performed By: #### C MP, LIPID, GFR, PSA, VIDH #### [address] [address] .Auto Diffon 09-15-2021 Basophil, Absolute 0.1 10 3/mcL Normal 0.0-0.2 [facility] ([place] Comment on above: Performed By: #### C MP, LIPID, GFR, PSA, VIDH #### [address] [address] Basophils/100 WBC (Bld) 0.9 % Normal 0.0-2.5 [facility] Comment on above: Performed By: #### C MP, LIPID, GFR, PSA, VIDH #### [address] [address] Eosinophil, Absolute 0.2 10 3/mcL Normal 0.0-0.4 [facility] ([place] Comment on above: Performed By: #### C MP, LIPID, GFR, PSA, VIDH #### [address] [address] Eosinophils/100 WBC (Bld) 2.3 % Normal 0.0-7.0 [facility] Comment on above: Performed By: #### C MP, LIPID, GFR, PSA, VIDH #### [address] [address] Lymphocyte, Absolute 1.5 10 3/mcL Normal 0.8-3.9 [facility] ([place] Comment on above: Performed By: #### C MP, LIPID, GFR, PSA, VIDH #### [address] [address] Lymphocytes/100 WBC (Bld) 23.3 % Normal 10.0-50.0 [facility] Comment on above: Performed By: #### C MP, LIPID, GFR, PSA, VIDH #### [address] [address] Monocyte, Absolute 0.8 10 3/mcL Normal 0.2-1.0 [facility] ([place] Comment on above: Performed By: #### C MP, LIPID, GFR, PSA, VIDH #### [address] [address] Monocytes/100 WBC (Bld) 11.5 % Normal 1.7-13.0 [facility] ([place] Comment on above: Performed By: #### C MP, LIPID, GFR, PSA, VIDH #### [address] [address] Neutrophils/100 WBC (Bld) 62.0 % Normal 37.0-80.0 [facility] Comment on above: Performed By: #### C MP, LIPID, GFR, PSA, VIDH #### [address] [address] .GFRon 09-15-2021 GFR Non- 62 ml/min/1.73sqm Normal [facility] Comment on above: Result Comment: GFR Population mean for , Non- Americans Ages 20-29 = 116 mL/min/1.73 sq.m. Ages 30-39 = 107 mL/min/1.73 sq.m. Ages 40-49 = 99 mL/min/1.73 sq.m. Ages 50-59 = 93 mL/min/1.73 sq.m. Ages 60-69 = 85 mL/min/1.73 sq.m. Ages 70+ = 75 mL/min/1.73 sq.m. Chronic Kidney Disease: Less than 60 mL/min/1.73 square meters End Stage Renal Disease: Less than 15 mL/min/1.73 square meters Performed By: #### C MP, LIPID, GFR, PSA, VIDH #### [address] [address] GFR 75 ml/min/1.73sqm Normal [facility] Comment on above: Result Comment: GFR Population mean for , Non- Americans Ages 20-29 = 116 mL/min/1.73 sq.m. Ages 30-39 = 107 mL/min/1.73 sq.m. Ages 40-49 = 99 mL/min/1.73 sq.m. Ages 50-59 = 93 mL/min/1.73 sq.m. Ages 60-69 = 85 mL/min/1.73 sq.m. Ages 70+ = 75 mL/min/1.73 sq.m. Chronic Kidney Disease: Less than 60 mL/min/1.73 square meters End Stage Renal Disease: Less than 15 mL/min/1.73 square meters Performed By: #### C MP, LIPID, GFR, PSA, VIDH #### [address] [address] .MDWon 09-15-2021 Monocyte Distribution Width Not performed Normal 0.00-20.00 [facility] [facility] ([place] Comment on above: Result Comment: MDW testing performed only on adult ER patients between the ages of 18-89 years. Performed By: #### C MP, LIPID, GFR, PSA, VIDH #### [address] [address] .NEUABSon 09-15-2021 Neutrophil, Absolute 4.1 10 3/mcL Normal 2.9-6.2 [facility] ([place]) Comment on above: Performed By: #### C MP, LIPID, GFR, PSA, VIDH #### [address] [address] CBCon 09-15-2021 Erythrocyte distribution width (RBC) [Ratio] 13.3 % Normal 11.5-14.5 [facility] ([place] Comment on above: Performed By: #### C MP, LIPID, GFR, PSA, VIDH #### [address] [address] Hematocrit (Bld) [Volume fraction] 42.6 % Normal 42.0-52.0 [facility] ([place] Comment on above: Performed By: #### C MP, LIPID, GFR, PSA, VIDH #### [address] [address] Hgb 14.3 G/dL Normal 14.0-18.0 [facility] ([place] Comment on above: Performed By: #### C MP, LIPID, GFR, PSA, VIDH #### [address] [address] MCH (RBC) [Entitic mass] 31.2 pg Normal 27.0-31.2 [facility] ([place] Comment on above: Performed By: #### C MP, LIPID, GFR, PSA, VIDH #### [place] [address] MCHC 33.5 G/dL Normal 31.8-35.4 [facility] ([place] Comment on above: Performed By: #### C MP, LIPID, GFR, PSA, VIDH #### [address] [address] MCV (RBC) [Entitic vol] 93.2 fL Normal 80.0-94.0 [facility] ([place] Comment on above: Performed By: #### C MP, LIPID, GFR, PSA, VIDH #### [address] [address] Platelet 203 10 3/mcL Normal 130-400 [facility] ([place] Comment on above: Performed By: #### C MP, LIPID, GFR, PSA, VIDH #### [address] [address] Platelet mean volume (Bld) [Entitic vol] 7.1 fL Low 7.4-10.4 [facility] ([place] Comment on above: Performed By: #### C MP, LIPID, GFR, PSA, VIDH #### [address] [address] RBC 4.57 10 6/mcL Normal 4.04-6.13 [facility] ([place] Comment on above: Performed By: #### C MP, LIPID, GFR, PSA, VIDH #### [address] [address] WBC 6.6 10 3/mcL Normal 4.6-10.8 [facility] ([place] Comment on above: Performed By: #### C MP, LIPID, GFR, PSA, VIDH #### [address] [address] CMPon 09-15-2021 Albumin Level 4.3 G/dL Normal 3.4-4.8 [facility] ([place] Comment on above: Performed By: #### C MP, LIPID, GFR, PSA, VIDH #### [address] [address] Albumin/Globulin [Mass ratio] 1.6 {ratio} Normal 1.1-2.5 [facility] ([place] Comment on above: Performed By: #### C MP, LIPID, GFR, PSA, VIDH #### [address] [address] ALP [Catalytic activity/Vol] 76 U/L Normal 40-135 [facility] ([place] Comment on above: Performed By: #### C MP, LIPID, GFR, PSA, VIDH #### [address] [address] ALT [Catalytic activity/Vol] 22 U/L Normal 16-63 [facility] ([place] Comment on above: Performed By: #### C MP, LIPID, GFR, PSA, VIDH #### [address] [address] AST [Catalytic activity/Vol] 15 U/L Normal 10-40 [facility] ([place] Comment on above: Performed By: #### C MP, LIPID, GFR, PSA, VIDH #### [address] [address] Bili Total 0.7 mg/dL Normal 0.2-1.0 [facility] ([place] Comment on above: Result Comment: Use of this assay is not recommended for patients undergoing treatment with eltrombopag due to the potential for falsely elevated results. Performed By: #### C MP, LIPID, GFR, PSA, VIDH #### [address] [address] BUN/Creatinine Ratio 17 ratio Normal 7-27 [facility] ([place] Comment on above: Performed By: #### C MP, LIPID, GFR, PSA, VIDH #### [address] [address] Calcium [Mass/Vol] 9.6 mg/dL Normal 8.4-10.2 [facility] ([place] Comment on above: Performed By: #### C MP, LIPID, GFR, PSA, VIDH #### [address] [address] Chloride [Moles/Vol] 105 mmol/L Normal 98-107 [facility] ([place] Comment on above: Performed By: #### C MP, LIPID, GFR, PSA, VIDH #### [address] [address] CO2 [Moles/Vol] 29 mmol/L Normal 23-31 [facility] ([place] Comment on above: Performed By: #### C MP, LIPID, GFR, PSA, VIDH #### [address] [address] Creatinine [Mass/Vol] 1.17 mg/dL Normal 0.70-1.30 [facility] ([place] Comment on above: Performed By: #### C MP, LIPID, GFR, PSA, VIDH #### [address] [address] Electrolyte Balance 6.0 mEq/L Normal 4.0-15.0 [facility] ([place] Comment on above: Performed By: #### C MP, LIPID, GFR, PSA, VIDH #### [address] [address] Globulin 2.7 G/dL Normal [facility] ([place] Comment on above: Performed By: #### C MP, LIPID, GFR, PSA, VIDH #### [address] [address] Glucose [Mass/Vol] 106 mg/dL Normal 83-110 [facility] ([place] Comment on above: Performed By: #### C MP, LIPID, GFR, PSA, VIDH #### [address] [address] Potassium [Moles/Vol] 4.8 mmol/L Normal 3.5-5.1 [facility] ([place] Comment on above: Performed By: #### C MP, LIPID, GFR, PSA, VIDH #### [address] [address] Sodium [Moles/Vol] 140 mmol/L Normal 136-145 [facility] ([place] Comment on above: Performed By: #### C MP, LIPID, GFR, PSA, VIDH #### [address] [address] Total Protein 7.0 G/dL Normal 6.4-8.2 [facility] ([place] Comment on above: Performed By: #### C MP, LIPID, GFR, PSA, VIDH #### [address] [address] Urea nitrogen [Mass/Vol] 20 mg/dL High 7-18 [facility] ([place] Comment on above: Performed By: #### C MP, LIPID, GFR, PSA, VIDH #### [address] [address] LABORATORYOrdered By: Duy Shaffer on 09-15-2021 Albumin BCP dye [Mass/Vol] 4.3 G/dL Invalid Interpretation Code 3.4 - 4.8 G/dL AO ADM SS Albumin/Globulin [Mass ratio] 1.6 {ratio} Invalid Interpretation Code 1.1 - 2.5 ratio AO ADM SS ALP [Catalytic activity/Vol] 76 U/L Invalid Interpretation Code 40 - 135 U/L AO ADM SS ALT With P-5'-P [Catalytic activity/Vol] 22 U/L Invalid Interpretation Code 16 - 63 U/L AO ADM SS AST With P-5'-P [Catalytic activity/Vol] 15 U/L Invalid Interpretation Code 10 - 40 U/L AO ADM SS Basophil, Absolute 0.1 103/mcL Invalid Interpretation Code 0.0 - 0.2 10^3/mcL AO Workflow SS Basophils/100 WBC (Bld) 0.9 % Invalid Interpretation Code 0.0 - 2.5 % AO Workflow SS Bilirubin [Mass/Vol] 0.7 mg/dL Invalid Interpretation Code 0.2 - 1.0 mg/dL AO ADM SS Calcium [Mass/Vol] 9.6 mg/dL Invalid Interpretation Code 8.4 - 10.2 mg/dL AO ADM SS Chloride [Moles/Vol] 105 mmol/L Invalid Interpretation Code 98 - 107 mmol/L AO ADM SS Cholesterol [Mass/Vol] 151 mg/dL Invalid Interpretation Code 0 - 200 mg/dL AO ADM SS Cholesterol in HDL [Mass/Vol] 46 mg/dL Invalid Interpretation Code 40 - 60 mg/dL AO ADM SS Cholesterol in LDL [Mass/Vol] 84 mg/dL Invalid Interpretation Code 0 - 130 mg/dL AO ADM SS CO2 [Moles/Vol] 29 mmol/L Invalid Interpretation Code 23 - 31 mmol/L AO ADM SS Creatinine [Mass/Vol] 1.17 mg/dL Invalid Interpretation Code 0.70 - 1.30 mg/dL AO ADM SS Electrolyte Balance 6.0 mEq/L Invalid Interpretation Code 4.0 - 15.0 mEq/L AO ADM SS Eosinophil, Absolute 0.2 103/mcL Invalid Interpretation Code 0.0 - 0.4 10^3/mcL AO Workflow SS Eosinophils/100 WBC (Bld) 2.3 % Invalid Interpretation Code 0.0 - 7.0 % AO Workflow SS Erythrocyte distribution width (RBC) [Ratio] 13.3 % Invalid Interpretation Code 11.5 - 14.5 % AO Workflow SS Globulin 2.7 G/dL Invalid Interpretation Code AO ADM SS Glucose [Mass/Vol] 106 mg/dL Invalid Interpretation Code 83 - 110 mg/dL AO ADM SS Hematocrit (Bld) [Volume fraction] 42.6 % Invalid Interpretation Code 42.0 - 52.0 % AO Workflow SS Hgb 14.3 G/dL Invalid Interpretation Code 14.0 - 18.0 G/dL AO Workflow SS Lymphocyte, Absolute 1.5 103/mcL Invalid Interpretation Code 0.8 - 3.9 10^3/mcL AO Workflow SS Lymphocytes/100 WBC (Bld) 23.3 % Invalid Interpretation Code 10.0 - 50.0 % AO Workflow SS MCH (RBC) [Entitic mass] 31.2 pg Invalid Interpretation Code 27.0 - 31.2 pg AO Workflow SS MCHC 33.5 G/dL Invalid Interpretation Code 31.8 - 35.4 G/dL AO Workflow SS MCV (RBC) [Entitic vol] 93.2 fL Invalid Interpretation Code 80.0 - 94.0 fL AO Workflow SS Monocyte, Absolute 0.8 103/mcL Invalid Interpretation Code 0.2 - 1.0 10^3/mcL AO Workflow SS Monocytes/100 WBC (Bld) 11.5 % Invalid Interpretation Code 1.7 - 13.0 % AO Workflow SS Neutrophil, Absolute 4.1 103/mcL Invalid Interpretation Code 2.9 - 6.2 10^3/mcL AO Workflow SS Neutrophils/100 WBC (Bld) 62.0 % Invalid Interpretation Code 37.0 - 80.0 % AO Workflow SS Platelet 203 103/mcL Invalid Interpretation Code 130 - 400 10^3/mcL AO Workflow SS Platelet mean volume (Bld) [Entitic vol] 7.1 fL Invalid Interpretation Code 7.4 - 10.4 fL AO Workflow SS Potassium [Moles/Vol] 4.8 mmol/L Invalid Interpretation Code 3.5 - 5.1 mmol/L AO ADM SS Prostate specific Ag [Mass/Vol] 2.81 ng/mL Invalid Interpretation Code 0.00 - 4.00 ng/mL AO ADM SS Protein [Mass/Vol] 7.0 G/dL Invalid Interpretation Code 6.4 - 8.2 G/dL AO ADM SS RBC 4.57 106/mcL Invalid Interpretation Code 4.04 - 6.13 10^6/mcL AO Workflow SS Sodium [Moles/Vol] 140 mmol/L Invalid Interpretation Code 136 - 145 mmol/L AO ADM SS Triglyceride [Mass/Vol] 105 mg/dL Invalid Interpretation Code 0 - 150 mg/dL AO ADM SS Urea nitrogen [Mass/Vol] 20 mg/dL Invalid Interpretation Code 7 - 18 mg/dL AO ADM SS Urea nitrogen/Creatinine [Mass ratio] 17 ratio Invalid Interpretation Code 7 - 27 ratio AO ADM SS Vit. D 25-Hydroxy 53.2 ng/mL Invalid Interpretation Code AO ADM SS WBC 6.6 103/mcL Invalid Interpretation Code 4.6 - 10.8 10^3/mcL AO Workflow SS LABORATORYOrdered By: SYSTEM SYSTEM on 09-15-2021 GFR 75 ml/min/1.73sqm Invalid Interpretation Code AO Chemistry S GFR Non- 62 ml/min/1.73sqm Invalid Interpretation Code AO Chemistry S Monocyte distribution width Auto (Bld) [Entitic vol] Not Performed 1 *NA* (09/15/21 7:17 AM) Invalid Interpretation Code 0.00 - 20.00 AO Hematology S Comment on above: Result Comment: MDW testing performed only on adult ER patients between the ages of 18-89 years. LIPIDon 09-15-2021 Cholesterol [Mass/Vol] 151 mg/dL Normal 0-200 [facility] ([place] Comment on above: Result Comment: Chol esterol Reference Interval: Less than 200 Desirable 200-239 Borderline high risk 240 and above High risk Performed By: #### C MP, LIPID, GFR, PSA, VIDH #### [address] [address] Cholesterol in HDL [Mass/Vol] 46 mg/dL Normal 40-60 [facility] ([place] Comment on above: Performed By: #### C MP, LIPID, GFR, PSA, VIDH #### [address] [address] Cholesterol in LDL [Mass/Vol] 84 mg/dL Normal 0-130 [facility] ([place] Comment on above: Performed By: #### C MP, LIPID, GFR, PSA, VIDH #### [address] [address] Triglyceride [Mass/Vol] 105 mg/dL Normal 0-150 [facility] ([place] Comment on above: Result Comment: Trig lyceride Reference Interval: Less than 150 Normal 150-199 Borderline high risk 200-499 High risk 500 or higher Very high risk Performed By: #### C MP, LIPID, GFR, PSA, VIDH #### [address] [address] PSAon 09-15-2021 Prostate Specific Antigen 2.81 ng/mL Normal 0.00-4.00 [facility] ([place] Comment on above: Performed By: #### C MP, LIPID, GFR, PSA, VIDH #### [address] [address] VIDHon 09-15-2021 Vit. D 25-Hydroxy 53.2 ng/mL Normal [facility] ([place] Comment on above: Result Comment: Inte rpretive Values Based on Total 25(OH) Vitamin D: Deficient <20 ng/mL Insufficient 20 - <30 ng/mL Sufficient 30-100 ng/mL Performed By: #### C MP, LIPID, GFR, PSA, VIDH #### [address] [address] .Auto Diffon 03-07-2021 Basophil, Absolute 0.10 10 3/mcL Normal 0.00-0.19 [facility] ([place]) Comment on above: Performed By: #### C MP, LIPID, GFR, PSA, VIDH #### [address] [address] Basophils/100 WBC (Bld) 1.0 % Normal 0.0-2.5 [facility] ([place] Comment on above: Performed By: #### C MP, LIPID, GFR, PSA, VIDH #### [address] [address] Eosinophil, Absolute 0.10 10 3/mcL Normal 0.00-0.40 A [facility] ([place]) Comment on above: Performed By: #### C MP, LIPID, GFR, PSA, VIDH #### [address] [address] Eosinophils/100 WBC (Bld) 1.8 % Normal 0.0-7.0 [facility] ([place] Comment on above: Performed By: #### C MP, LIPID, GFR, PSA, VIDH #### [address] [address] Lymphocyte, Absolute 1.40 10 3/mcL Normal 0.77-3.85 A [facility] ([place] Comment on above: Performed By: #### C MP, LIPID, GFR, PSA, VIDH #### [address] [address] Lymphocytes/100 WBC (Bld) 26.5 % Normal 10.0-50.0 [facility] ([place]) Comment on above: Performed By: #### C MP, LIPID, GFR, PSA, VIDH #### [address] [address] Monocyte, Absolute 0.60 10 3/mcL Normal 0.15-1.00 [facility] ([place] Comment on above: Performed By: #### C MP, LIPID, GFR, PSA, VIDH #### [address] [address] Monocytes/100 WBC (Bld) 11.1 % Normal 1.7-13.0 [facility] ([place] Comment on above: Performed By: #### C MP, LIPID, GFR, PSA, VIDH #### [address] [address] Neutrophils/100 WBC (Bld) 59.6 % Normal 37.0-80.0 [facility] ([place] Comment on above: Performed By: #### C MP, LIPID, GFR, PSA, VIDH #### [address] [address] .GFRon 03-07-2021 GFR 98 ml/min/1.73sqm Normal [facility] ([place] Comment on above: Result Comment: GFR Population mean for , Non- Americans Ages 20-29 = 116 mL/min/1.73 sq.m. Ages 30-39 = 107 mL/min/1.73 sq.m. Ages 40-49 = 99 mL/min/1.73 sq.m. Ages 50-59 = 93 mL/min/1.73 sq.m. Ages 60-69 = 85 mL/min/1.73 sq.m. Ages 70+ = 75 mL/min/1.73 sq.m. Chronic Kidney Disease: Less than 60 mL/min/1.73 square meters End Stage Renal Disease: Less than 15 mL/min/1.73 square meters Performed By: #### C MP, LIPID, GFR, PSA, VIDH #### [address] [address] GFR Non- 81 ml/min/1.73sqm Normal [facility] ([place] Comment on above: Result Comment: GFR Population mean for , Non- Americans Ages 20-29 = 116 mL/min/1.73 sq.m. Ages 30-39 = 107 mL/min/1.73 sq.m. Ages 40-49 = 99 mL/min/1.73 sq.m. Ages 50-59 = 93 mL/min/1.73 sq.m. Ages 60-69 = 85 mL/min/1.73 sq.m. Ages 70+ = 75 mL/min/1.73 sq.m. Chronic Kidney Disease: Less than 60 mL/min/1.73 square meters End Stage Renal Disease: Less than 15 mL/min/1.73 square meters Performed By: #### C MP, LIPID, GFR, PSA, VIDH #### [address] [address] .NEUABSon 03-07-2021 Neutrophil, Absolute 3.30 10 3/mcL Normal 2.85-6.16 A [facility] ([place] Comment on above: Performed By: #### C MP, LIPID, GFR, PSA, VIDH #### [address] [address] CBCon 03-07-2021 Erythrocyte distribution width (RBC) [Ratio] 12.9 % Normal 11.5-14.5 [facility] ([place] Comment on above: Performed By: #### L IPID, CBC, ANEU, GFR, ADIFF, CMP #### [address] [address] Hematocrit (Bld) [Volume fraction] 42.8 % Normal 42.0-52.0 [facility] ([place] Comment on above: Performed By: #### L IPID, CBC, ANEU, GFR, ADIFF, CMP #### [address] [address] Hgb 14.5 G/dL Normal 14.0-18.0 [facility] ([place] Comment on above: Performed By: #### L IPID, CBC, ANEU, GFR, ADIFF, CMP #### [address] [address] MCH (RBC) [Entitic mass] 31.3 pg High 27.0-31.2 [facility] ([place] Comment on above: Performed By: #### L IPID, CBC, ANEU, GFR, ADIFF, CMP #### [address] [address] MCHC 33.8 G/dL Normal 31.8-35.4 [facility] ([place] Comment on above: Performed By: #### L IPID, CBC, ANEU, GFR, ADIFF, CMP #### [address] [address] MCV (RBC) [Entitic vol] 92.4 fL Normal 80.0-94.0 [facility] ([place] Comment on above: Performed By: #### L IPID, CBC, ANEU, GFR, ADIFF, CMP #### [address] [address] Platelet 233 10 3/mcL Normal 130-400 [facility] ([place] Comment on above: Performed By: #### L IPID, CBC, ANEU, GFR, ADIFF, CMP #### [address] [address] Platelet mean volume (Bld) [Entitic vol] 7.6 fL Normal 7.4-10.4 [facility] ([place] Comment on above: Performed By: #### L IPID, CBC, ANEU, GFR, ADIFF, CMP #### [address] [address] RBC 4.63 10 6/mcL Normal 4.04-6.13 [facility] ([place] Comment on above: Performed By: #### L IPID, CBC, ANEU, GFR, ADIFF, CMP #### [address] [address] WBC 5.50 10 3/mcL Normal 4.60-10.80 [facility] ([place] Comment on above: Performed By: #### L IPID, CBC, ANEU, GFR, ADIFF, CMP #### [place] [address] CMPon 03-07-2021 Albumin Level 4.1 G/dL Normal 3.4-4.8 [facility] ([place] Comment on above: Performed By: #### C MP, LIPID, GFR, PSA, VIDH #### [address] [address] Albumin/Globulin [Mass ratio] 1.3 {ratio} Normal 1.1-2.5 [facility] ([place] Comment on above: Performed By: #### C MP, LIPID, GFR, PSA, VIDH #### [address] [address] ALP [Catalytic activity/Vol] 73 U/L Normal 40-135 [facility] ([place] Comment on above: Performed By: #### C MP, LIPID, GFR, PSA, VIDH #### [address] [address] ALT [Catalytic activity/Vol] 29 U/L Normal 16-63 [facility] ([place] Comment on above: Performed By: #### C MP, LIPID, GFR, PSA, VIDH #### [address] [address] AST [Catalytic activity/Vol] 16 U/L Normal 10-40 [facility] ([place] Comment on above: Performed By: #### C MP, LIPID, GFR, PSA, VIDH #### [address] [address] Bili Total 0.8 mg/dL Normal 0.2-1.0 [facility] ([place] Comment on above: Result Comment: Use of this assay is not recommended for patients undergoing treatment with eltrombopag due to the potential for falsely elevated results. Performed By: #### C MP, LIPID, GFR, PSA, VIDH #### [address] [address] BUN/Creatinine Ratio 20 ratio Normal 7-27 [facility] ([place] Comment on above: Performed By: #### C MP, LIPID, GFR, PSA, VIDH #### [address] [address] Calcium [Mass/Vol] 9.2 mg/dL Normal 8.4-10.2 [facility] ([place] Comment on above: Performed By: #### C MP, LIPID, GFR, PSA, VIDH #### [address] [address] Chloride [Moles/Vol] 104 mmol/L Normal 98-107 [facility] ([place] Comment on above: Performed By: #### C MP, LIPID, GFR, PSA, VIDH #### [address] [address] CO2 [Moles/Vol] 30 mmol/L Normal 23-31 [facility] ([place] Comment on above: Performed By: #### C MP, LIPID, GFR, PSA, VIDH #### [address] [address] Creatinine [Mass/Vol] 0.93 mg/dL Normal 0.70-1.30 [facility] ([place] Comment on above: Performed By: #### C MP, LIPID, GFR, PSA, VIDH #### [address] [address] Electrolyte Balance 9.0 mEq/L Normal [facility] ([place] Comment on above: Performed By: #### C MP, LIPID, GFR, PSA, VIDH #### [address] [address] Globulin 3.1 G/dL Normal [facility] ([place] Comment on above: Performed By: #### C MP, LIPID, GFR, PSA, VIDH #### [address] [address] Glucose [Mass/Vol] 96 mg/dL Normal 80-115 [facility] ([place] Comment on above: Performed By: #### C MP, LIPID, GFR, PSA, VIDH #### [address] [address] Potassium [Moles/Vol] 4.3 mmol/L Normal 3.5-5.1 [facility] ([place] Comment on above: Performed By: #### C MP, LIPID, GFR, PSA, VIDH #### [place] [address] [place], [place] [address] Sodium [Moles/Vol] 143 mmol/L Normal 136-145 [facility] ([place] Comment on above: Performed By: #### C MP, LIPID, GFR, PSA, VIDH #### [place] [address] [place], [place] [address] Total Protein 7.2 G/dL Normal 6.4-8.2 [facility] ([place] Comment on above: Performed By: #### C MP, LIPID, GFR, PSA, VIDH #### [place] [address] [place], [place] [address] Urea nitrogen [Mass/Vol] 19 mg/dL High 7-18 [facility] ([place] Comment on above: Performed By: #### C MP, LIPID, GFR, PSA, VIDH #### [place] [address] [place], [place] [address] LABORATORYOrdered By: Corina De La Garza on 03-07-2021 Albumin BCP dye [Mass/Vol] 4.1 G/dL Invalid Interpretation Code 3.4 - 4.8 G/dL AO ADM SS Albumin/Globulin [Mass ratio] 1.3 {ratio} Invalid Interpretation Code 1.1 - 2.5 ratio AO ADM SS ALP [Catalytic activity/Vol] 73 U/L Invalid Interpretation Code 40 - 135 U/L AO ADM SS ALT With P-5'-P [Catalytic activity/Vol] 29 U/L Invalid Interpretation Code 16 - 63 U/L AO ADM SS AST With P-5'-P [Catalytic activity/Vol] 16 U/L Invalid Interpretation Code 10 - 40 U/L AO ADM SS Bilirubin [Mass/Vol] 0.8 mg/dL Invalid Interpretation Code 0.2 - 1.0 mg/dL AO ADM SS Calcium [Mass/Vol] 9.2 mg/dL Invalid Interpretation Code 8.4 - 10.2 mg/dL AO ADM SS Chloride [Moles/Vol] 104 mmol/L Invalid Interpretation Code 98 - 107 mmol/L AO ADM SS Cholesterol [Mass/Vol] 164 mg/dL Invalid Interpretation Code 0 - 200 mg/dL AO ADM SS Cholesterol in HDL [Mass/Vol] 48 mg/dL Invalid Interpretation Code 40 - 60 mg/dL AO ADM SS Cholesterol in LDL [Mass/Vol] 95 mg/dL Invalid Interpretation Code 0 - 130 mg/dL AO ADM SS CO2 [Moles/Vol] 30 mmol/L Invalid Interpretation Code 23 - 31 mmol/L AO ADM SS Creatinine [Mass/Vol] 0.93 mg/dL Invalid Interpretation Code 0.70 - 1.30 mg/dL AO ADM SS Electrolyte Balance 9.0 mEq/L Invalid Interpretation Code AO ADM SS Globulin 3.1 G/dL Invalid Interpretation Code AO ADM SS Glucose [Mass/Vol] 96 mg/dL Invalid Interpretation Code 80 - 115 mg/dL AO ADM SS Potassium [Moles/Vol] 4.3 mmol/L Invalid Interpretation Code 3.5 - 5.1 mmol/L AO ADM SS Protein [Mass/Vol] 7.2 G/dL Invalid Interpretation Code 6.4 - 8.2 G/dL AO ADM SS Sodium [Moles/Vol] 143 mmol/L Invalid Interpretation Code 136 - 145 mmol/L AO ADM SS Triglyceride [Mass/Vol] 106 mg/dL Invalid Interpretation Code 0 - 150 mg/dL AO ADM SS Urea nitrogen [Mass/Vol] 19 mg/dL Invalid Interpretation Code 7 - 18 mg/dL AO ADM SS Urea nitrogen/Creatinine [Mass ratio] 20 ratio Invalid Interpretation Code 7 - 27 ratio AO ADM SS LABORATORYOrdered By: Rika Gutierrez on 03-07-2021 Basophil, Absolute 0.10 103/mcL Invalid Interpretation Code 0.00 - 0.19 10^3/mcL AO Auto Heme SS Basophils/100 WBC (Bld) 1.0 % Invalid Interpretation Code 0.0 - 2.5 % AO Auto Heme SS Eosinophil, Absolute 0.10 103/mcL Invalid Interpretation Code 0.00 - 0.40 10^3/mcL AO Auto Heme SS Eosinophils/100 WBC (Bld) 1.8 % Invalid Interpretation Code 0.0 - 7.0 % AO Auto Heme SS Erythrocyte distribution width (RBC) [Ratio] 12.9 % Invalid Interpretation Code 11.5 - 14.5 % AO Auto Heme SS Hematocrit (Bld) [Volume fraction] 42.8 % Invalid Interpretation Code 42.0 - 52.0 % AO Auto Heme SS Hemoglobin (Bld) [Mass/Vol] 14.5 G/dL Invalid Interpretation Code 14.0 - 18.0 G/dL AO Auto Heme SS Lymphocyte, Absolute 1.40 103/mcL Invalid Interpretation Code 0.77 - 3.85 10^3/mcL AO Auto Heme SS Lymphocytes/100 WBC (Bld) 26.5 % Invalid Interpretation Code 10.0 - 50.0 % AO Auto Heme SS MCH (RBC) [Entitic mass] 31.3 pg Invalid Interpretation Code 27.0 - 31.2 pg AO Auto Heme SS MCHC (RBC) [Mass/Vol] 33.8 G/dL Invalid Interpretation Code 31.8 - 35.4 G/dL AO Auto Heme SS MCV (RBC) [Entitic vol] 92.4 fL Invalid Interpretation Code 80.0 - 94.0 fL AO Auto Heme SS Monocyte, Absolute 0.60 103/mcL Invalid Interpretation Code 0.15 - 1.00 10^3/mcL AO Auto Heme SS Monocytes/100 WBC (Bld) 11.1 % Invalid Interpretation Code 1.7 - 13.0 % AO Auto Heme SS Neutrophil, Absolute 3.30 103/mcL Invalid Interpretation Code 2.85 - 6.16 10^3/mcL AO Auto Heme SS Neutrophils/100 WBC (Bld) 59.6 % Invalid Interpretation Code 37.0 - 80.0 % AO Auto Heme SS Platelet mean volume (Bld) [Entitic vol] 7.6 fL Invalid Interpretation Code 7.4 - 10.4 fL AO Auto Heme SS Platelets (Bld) [#/Vol] 233 103/mcL Invalid Interpretation Code 130 - 400 10^3/mcL AO Auto Heme SS RBC (Bld) [#/Vol] 4.63 106/mcL Invalid Interpretation Code 4.04 - 6.13 10^6/mcL AO Auto Heme SS WBC (Bld) [#/Vol] 5.50 103/mcL Invalid Interpretation Code 4.60 - 10.80 10^3/mcL AO Auto Heme SS LABORATORYOrdered By: SYSTEM SYSTEM on 03-07-2021 GFR 98 ml/min/1.73sqm Invalid Interpretation Code AO Chemistry S GFR Non- 81 ml/min/1.73sqm Invalid Interpretation Code AO Chemistry S LIPIDon 03-07-2021 Cholesterol [Mass/Vol] 164 mg/dL Normal 0-200 [facility] ([place] Comment on above: Result Comment: Chol esterol Reference Interval: Less than 200 Desirable 200-239 Borderline high risk 240 and above High risk Performed By: #### C MP, LIPID, GFR, PSA, VIDH #### [address] [address] Cholesterol in HDL [Mass/Vol] 48 mg/dL Normal 40-60 [facility] [place] Comment on above: Performed By: #### C MP, LIPID, GFR, PSA, VIDH #### [address] [place], [place] [address] Cholesterol in LDL [Mass/Vol] 95 mg/dL Normal 0-130 [facility] [place] Comment on above: Performed By: #### C MP, LIPID, GFR, PSA, VIDH #### [address] [place], [place] [address] Triglyceride [Mass/Vol] 106 mg/dL Normal 0-150 [facility] [place] Comment on above: Result Comment: Trig lyceride Reference Interval: Less than 150 Normal 150-199 Borderline high risk 200-499 High risk 500 or higher Very high risk Performed By: #### C MP, LIPID, GFR, PSA, VIDH #### [address] [address] Office Visiton 12-31-2016 Documentation of current medications (procedure) Done Invalid Interpretation Code [employer] Work Phone: [phone] Fall risk assessment Fall risk assessment Invali d Interpretation Code [employer] Work Phone: [phone] Protein mass conc Done [employer] Work Phone: [phone] Replaced Document: Gilberto Sanz Observationson 12-31-2016 EKG QRS axis -16 deg Invalid Interpretation Code [employer] Work Phone: [phone] Interpretation Sinus Rhythm -RSR(V1 ) -nondiagnostic. PROBABLY NORMAL Invalid Interpretation Code [employer] Work Phone: [phone] P [place] 49 deg Invalid Interpretation Code [employer] Work Phone: [phone] WI Interval 164 ms Invalid Interpretation Code [employer] Work Phone: [phone] Pulse (Heart Rate) 86 /min Invalid Interpretation Code [employer] Work Phone: [phone] QRS Duration 98 ms Invalid Interpretation Code [employer] Work Phone: [phone] QT Interval new path ms Invalid Interpretation Code [employer] Work Phone: [phone] QTc [place] 403 ms Invalid Interpretation Code [employer] Work Phone: [phone] T [place] 51 deg Invalid Interpretation Code [employer] Work Phone: [phone] Prostate Spec. Agon 10-13-19 17 Prostate Spec. Ag 1.67 ng/mL Normal 0.00-4.00 [facility] Comment on above: Performed By: #### P SA ####[id number] [place] [address] Office Visiton 07-16-2016 Documentation of current medications (procedure) Done Invalid Interpretation Code [employer] Work Phone: [phone] Fall risk assessment No Invalid Interpretation Code [employer] Work Phone: [phone] Lab Report: Basic Metabolic Profile (BMP)on 06-15-2016 Anion gap 7 mmol/L Invalid Interpretation Code 5-15 [employer] Work Phone: [phone] Anion gap molar conc 7 mmol/L 5-15 [employer] Work Phone: [phone] BUN/Creatinine Ratio 20.4 RATIO High 10-20 [employer] Work Phone: [phone] Calcium 8.7 mg/dL Invalid Interpretation Code 8.5-10.1 [employer] Work Phone: [phone] Chloride 105 mmol/L Invalid Interpretation Code 98-107 [employer] Work Phone: [phone] CO2 28.0 mmol/L Invalid Interpretation Code 21.0-32.0 [employer] Work Phone: [phone] CO2 ppres (BldV) 28.0 mmol/L 21.0-32.0 [employer] Work Phone: [phone] Creatinine 1.03 mg/dL Invalid Interpretation Code 0.70-1.30 [employer] Work Phone: [phone] eGFR (non-black) 77 mL/min/{1.73_m2} Invalid Interpretation Code >60 [employer] Work Phone: [phone] eGFR (non-black) 93 mL/min/{1.73_m2} Invalid Interpretation Code >60 [facility] Work Phone: [phone] EST GFR - AA 93 mL/min >60 [facility] [place] Work Phone: [phone] Glucose 93 mg/dL Invalid Interpretation Code 70-110 [facility] [employer] [place] Work Phone: [phone] Glucose mass conc 93 mg/dL Invalid Interpretation Code 70-110 [facility] [place] Work Phone: [phone] Potassium 4.0 mmol/L Invalid Interpretation Code 3.5-5.1 [facility] Work Phone: [phone] Sodium 140 mmol/L Invalid Interpretation Code 136-145 [facility] [place] Work Phone: [phone] Urea nitrogen 21 mg/dL High 7-18 [facility] [place] Work Phone: [phone] Lab Report: CBC-Complete Blo od Cnt No Diffon 06-15-2016 Erythrocyte distribution width Ratio (RBC) 12.2 % 11.6-14.6 [facility] [facility] Work Phone: [phone] Erythrocyte distribution width Ratio (RBC) 41.4 fL 35.1-43.9 [facility] Work Phone: [phone] Erythrocytes (RBC) 4.35 10*6/uL Low 4.6-6.[address] [facility] [address] [facility] [facility] Work Phone: [phone] Hematocrit (HCT) 41.3 % Invalid Interpretation Code 40-54 [facility] [facility] Work Phone: [phone] Hematocrit Volume Fraction (Bld) 41.3 % 40-54 [facility] Work Phone: [phone] Hemoglobin (HGB) 13.7 g/dL Invalid Interpretation Code 13.0-16.5 [facility] Work Phone: [phone] MCH 31.5 pg Invalid Interpretation Code 27.0-32.0 [facility] [employer] [place] Work Phone: [phone] MCH Entitic mass (RBC) 31.5 pg 27.0-32.0 [facility] [facility] Work Phone: [phone] MCHC 33.2 G/GL Invalid Interpretation Code 32-36 [facility] [place] Work Phone: [phone] MCHC mass conc (RBC) 33.2 G/GL 32-[address] [facility] [address] [facility] Work Phone: [phone] MCV 94.9 fL High 80-94 [facility] Work Phone: [phone] MCV Entitic volume (RBC) 94.9 fL High 80-94 [facility] [place] Work Phone: [phone] Platelet mean volume Entitic volume (Bld) 9.3 fL 6.2-12.0 [facility] [place] Work Phone: [phone] Platelets 209 10*3/mm3 Invalid Interpretation Code 150-450 [facility] [place] Work Phone: [phone] Platelets #/vol (Bld) 209 10*3/mm3 150-450 [facility] [place] Work Phone: [phone] PMV by Liana 9.3 fL Invalid Interpretation Code 6.2-12.0 [facility] Work Phone: [phone] RBC #/vol (Bld) 4.35 10*6/uL Low 4.6-6.2 [facility] [place] Work Phone: [phone] RDW SD 41.4 fL Invalid Interpretation Code 35.1-43.9 [facility] [place] Work Phone: [phone] RDW-CA 12.2 % Invalid Interpretation Code 11.6-14.6 [facility] [employer] Work Phone: [phone] red blood cell distribution width, size density 41.4 fL Invalid Interpretation Code 35.1-43.9 [facility] [place] Work Phone: [phone] WBC #/vol (Bld) 5.8 10*3/uL 4.4-11.0 [facility] [place] Work Phone: [phone] WBC (Leukocytes) 5.8 10*3/uL Invalid Interpretation Code 4.4-11.0 [facility] Work Phone: [phone] Lab Report: Magnesiumon 06-03 Magnesium 2.0 mg/dL Invalid Interpretation Code 1.8-2.4 [facility] [employer] Work Phone: [phone] Lab Report: T4 Total, Thyrox inon 06-15-2016 Thyroxine (T4) 8.6 ug/dL Invalid Interpretation Code 4.5-12.1 [employer] Phone: [phone] Lab Report: Thyroid Stim Hor mane (TSH)on 06-15-2016 Thyroid stimulating hormone (TSH) 1.77 u[iU]/mL Invalid Interpretation Code 0.358-3.74 [employer] Phone: [phone] Clinical 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 PROBABLY NORMAL Invalid Interpretation Code [employer] Phone: [phone] GE use only - for [employer] import when terms are not otherwise specified 402 ms Invalid Interpretation Code [employer] Phone: [phone] P wave axis, electrocardiogram 58 deg Invalid Interpretation Code [employer] Phone: [phone] WI interval, electrocardiogram 174 ms Invalid Interpretation Code [employer] Phone: [phone] Pulse (Heart Rate) 60 /min Invalid Interpretation Code [employer] Phone: [phone] QRS axis, electrocardiogram -20 deg Invalid Interpretation Code [employer] Phone: [phone] QRS duration, electrocardiogram 97 ms Invalid Interpretation Code [employer] Phone: [phone] QT interval, electrocardiogram new path ms Invalid Interpretation Code [employer] Phone: [phone] T wave axis, electrocardiogram 42 deg Invalid Interpretation Code [employer] Phone: [phone] Office Visiton 05-28-2015 Tobacco smoking status NHIS Never smoker [employer] Work Phone: [phone] Tobacco use [facility] Never smoker Invalid Interpretation Code [employer] Work Phone: [phone] Lab Report: Lipid Profileon 03-19-2015 Cholesterol 126 mg/dL Invalid Interpretation Code 200 [employer] Work Phone: [phone] HDL Cholesterol 43 mg/dL Invalid Interpretation Code [employer] Work Phone: [phone] LDL Cholesterol 66 mg/dL Invalid Interpretation Code 0-130 [employer] Work Phone: [phone] Triglyceride 84 mg/dL Invalid Interpretation Code [employer] Work Phone: [phone] very low density lipoproteins 17 mg/dL Invalid Interpretation Code 5-40 [employer] Work Phone: [phone] Lab Report: Liver Profileon 03-19-2015 Alanine aminotransferase (ALT) 29 U/L Invalid Interpretation Code 12-78 [employer] Phone: [phone] Albumin 3.8 g/dL Invalid Interpretation Code 3.4-5.0 [employer] Phone: [phone] Alkaline phosphatase (ALP) 74 U/L Invalid Interpretation Code 50-136 [employer] Phone: [phone] ALP enzyme act/vol (Bld) 74 U/L 50-136 [employer] Phone: [phone] Aspartate aminotransferase (AST) 16 U/L Invalid Interpretation Code 15-37 [employer] Phone: [phone] Bilirubin (direct) 0.13 mg/dL Invalid Interpretation Code 0.00-0.30 [employer] Phone: [phone] Bilirubin (total) 0.40 mg/dL Invalid Interpretation Code 0.20-1.00 [employer] Work Phone: [phone] Globulin 3.5 g/dL Invalid Interpretation Code 2.3-3.5 [employer] Phone: [phone] Globulin mass conc (S) 3.5 g/dL 2.3-3.5 [employer] Work Phone: [phone] Protein 7.3 g/dL Invalid Interpretation Code 6.4-8.2 [facility] Work Phone: [phone] Office Visiton 12-19-2014 cardiac risk group C Invalid Interpretation Code [facility] Work Phone: [phone] General cardiovascular disease 10Y risk [#] [place].D'Agostin o N/A Invalid Interpretation Code [facility] Work Phone: [phone] Clinical Lists Update: 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 manager 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 11-02-2014 Cholesterol to HDL Ratio 3.7 {ratio} Invalid Interpretation Code [facility] Work Phone: [phone] Vital Signs Date Time Vital Sign Value Performing Clinician Teresa sosa 09-21-2022 13:30-0400 Body height 177.8 cm [facility] 12-31-2016 16:48-0400 Heart rate 86 /min Herlinda Meeks [facility] Work Phone: 12-31-2016 16:26-0400 BMI (Body Mass Index) 23.54 kg/m2 Herlinda Constant[facility] Work Phone: 12-31-2016 16:26-0400 BP Diastolic 60 mm[Hg] Herlinda Meeks [facility] Work Phone: 12-31-2016 16:26-0400 BP Systolic 110 mm[Hg] [facility] Work Phone: 12-31-2016 16:26-0400 Height 177.8 cm Herlinda Meeks [facility] Work Phone: 12-31-2016 16:26-0400 Pulse (Heart Rate) 80 /min [facility] Work Phone: 12-31-2016 16:26-0400 Respiratory Rate 20 /min [facility] Work Phone: 12-31-2016 16:26-0400 Weight 74.44 kg Herlinda Meeks [facility] Work Phone: 07-16-2016 15:15-0400 BMI (Body Mass Index) 23.99 kg/m2 Negra Rosenthal RN [facility] Work Phone: 07-16-2016 15:15-0400 BP Diastolic 60 mm[Hg] [facility] Work Phone: 07-16-2016 15:15-0400 BP Systolic 100 mm[Hg] [facility] Work Phone: 07-16-2016 15:15-0400 Height 177.8 cm [facility] Work Phone: 07-16-2016 15:15-0400 Pulse (Heart Rate) 64 /min [facility] Work Phone: 07-16-2016 15:15-0400 Respiratory Rate 20 /min [facility] Work Phone: 07-16-2016 15:15-0400 Weight 75.84 kg [facility] Work Phone: 02-05-2016 13:03-0400 BSA (Body Surface Area) 1.94 m2 [facility] Work Phone: Encounters Encounter Date Encounter Type Care Provider Facility Start: 11-22-2023 End: 11-22-2023 ambulatory [facility] Facility:[facility] Start: 10-11-2023 End: 10-11-2023 ambulatory Self Referred Facility:[facility] Start: 08-06-2023 End: 08-06-2023 ambulatory [facility] Work Phone: Start: 08-06-2023 End: 08-06-2023 Patient encounter procedure [facility]-Laboratory,Fut ure Work Phone: Start: 08-06-2023 End: 08-06-2023 ambulatory [facility] Facility:[facility] Start: 03-05-2023 End: 03-05-2023 ambulatory [facility] Work Phone: Start: 03-05-2023 End: 03-05-2023 Patient encounter procedure [facility] Work Phone: Start: 03-05-2023 End: 03-05-2023 ambulatory Demian Sloan Facility:[facility] Start: 11-30-2022 End: 11-30-2022 ambulatory [facility] Work Phone: Start: 11-30-2022 End: 11-30-2022 [facility] [place] Work Phone: Start: 10-22-2022 End: 10-22-2022 ambulatory [facility] Work Phone: Start: 10-22-2022 End: 10-22-2022 Discharged Recurring [facility]-Physical Therapy Work Phone: Start: 10-22-2022 Registered Rec[facility]ring [facility] Therapy Work Phone: Start: 10-20-2022 Registered [facility]ring [facility] Therapy Work Phone: Start: 10-19-2022 End: 10-19-2022 ambulatory [facility] Work Phone: Start: 10-19-2022 End: 10-19-2022 Patient encounter [facility] [place] Work Phone: Start: 10-16-2022 End: 10-16-2022 ambulatory [facility] Work Phone: Start: 10-16-2022 End: 10-16-2022 Patient encounter procedure [facility]-Laboratory Work Phone: Start: 12-26-2021 End: 12-27-[address] JUAN BROWN MD. Facility:A Start: 12-26-2021 End: 12-26-[address] JUAN BROWN MD [facility] Start: 12-16-2021 End: 12-17-[address] JUAN BROWN MD. Facility:B Start: 09-15-2021 End: 2021 ambulatory DREW HYMAN PROPOSAL REP Facility:B Start: 09-15-2021 End: 09-15-2021 Patient encounter procedure DREW HYMAN SYSTEM DESIGNER - PROPOSAL REP [facility] Start: 03-07-2021 End: 03-08-2021 ambulatory DREW HYMAN PROPOSAL REP Facility:B Start: 03-07-2021 End: 03-07-2021 Patient encounter procedure DREW HYMAN SYSTEM DESIGNER - PROPOSAL REP [facility] Start: 10-12-2016 End: 10-13-2016 Ambulatory DREW WALKER Facility:[facility] Procedures Date Procedure Procedure Detail Performing Clinician Start: 03-05-2023 MRI of cervical spin e with contrast Start: 11-30-2022 Plain chest X-ray Start: 10-16-2022 Urine culture Start: 03-20-2019 Colonoscopy DREW STANTON SYSTEM DESIGNER - PROPOSAL REP Start: 12-31-2016 End: 12-31-2016 Ecg routine ecg w/least 12 lds w/i&r Dallas Jones MD Start: 12-31-2016 End: 12-31-2016 Follow Up Appt 3 months Gely Marmolejo Start: 12-31-2016 End: 12-31-2016 NICHOLAS Jones MD Start: 12-31-2016 End: 12-31-2016 Ecg routine ecg w/least 12 lds w/i&r Dallas Jones MD Start: 12-31-2016 End: 12-31-2016 Follow Up Appt 3 months Gely Marmolejo Start: 12-31-2016 End: 12-31-2016 NICHOLAS Jones MD Start: 07-16-2016 End: 10-23-2016 LEVI Jones MD Start: 07-16-2016 End: 10-23-2016 Follow Up Appt 3 months Gely Marmolejo Start: 07-16-2016 End: 10-23-2016 LEVI Jones MD Start: 07-16-2016 End: 10-23-2016 Follow Up Appt 3 months Gely Marmolejo Start: 06-12-2016 End: 06-15-2016 *BMP Dallas Jones MD Start: 06-12-2016 End: 06-15-2016 CBC W Auto Differential panel - Blood Dallas Jones MD Start: 06-12-2016 End: 06-15-2016 Magnesium [Mass/volume] in Serum or Plasma Dallas Jones MD Start: 06-12-2016 End: 06-15-2016 Thyrotropin [Units/volume] in Serum or Plasma Dallas Jones MD Start: 06-12-2016 End: 06-15-2016 Thyroxine (T4) [Mass/volume] in Serum or Plasma Dallas Jones MD Start: 06-12-2016 End: 07-30-2016 Xtrnl mobile cv telemetry w/i&report 30 days Dallas Jones MD Start: 06-12-2016 End: 06-15-2016 *BMP Dallas Jones MD Start: 06-12-2016 End: 06-15-2016 CBC W Auto Differential panel - Blood Dallas Jones MD Start: 06-12-2016 End: 06-15-2016 Magnesium Dallas Jones MD Start: 06-12-2016 End: 07-30-2016 Remote 30 day ecg rev/report Dallas Jones MD Start: 06-12-2016 End: 06-15-2016 Thyroid stimulating hormone (TSH) Dallas Jones MD Start: 06-12-2016 End: 06-15-2016 Thyroxine (T4) Dallas Jones MD Start: 02-05-2016 End: 02-05-2016 Follow Up Appt 6 months Gely Marmolejo Start: 02-05-2016 End: 02-05-2016 MM Dallas Jones MD Start: 02-05-2016 End: 02-05-2016 Follow Up Appt 6 months Gely Marmolejo Start: 02-05-2016 End: 02-05-2016 NIALL Dallas Jones MD Start: 01-09-2016 End: 01-09-2016 LEVI Toribio PA-C Work Phone: Start: 01-09-2016 End: 01-09-2016 Follow Up Appt 6 months Patti Toribio PA-C Work Phone: Start: 01-09-2016 End: 01-09-2016 LEVI Toribio PA-C Work Phone: Start: 01-09-2016 End: 01-09-2016 Follow Up Appt 6 months Patti Toribio PA-C Work Phone: Start: 09-18-2015 End: 01-07-2017 *Hepatic Function Panel Gely Marmolejo Start: 09-18-2015 End: 01-07-2017 Lipid 1996 panel - Serum or Plasma Dallas Jones MD Start: 08-06-2015 End: 08-06-2015 *BMP Dallas Jones MD Start: 08-06-2015 End: 08-06-2015 CBC W Auto Differential panel - Blood Dallas Jones MD Start: 08-06-2015 End: 08-12-2015 Chest x-ray Dallas Jones MD Start: 08-06-2015 End: 08-06-2015 Ecg routine ecg w/least 12 lds w/i&r Dallas Jones MD Start: 08-06-2015 End: 12-25-2015 Follow Up Appt 6 months Gely Marmolejo Start: 08-06-2015 End: 08-06-2015 INR in Platelet poor plasma by Coagulation assay Dallas Jones MD Start: 08-06-2015 End: 08-12-2015 Left Heart Cath Dallas Jones MD Start: 08-06-2015 End: 12-25-2015 MMM Dallas Jones MD Start: 08-06-2015 End: 08-06-2015 *BMP Dallas Jones MD Start: 08-06-2015 End: 08-06-2015 CBC W Auto Differential panel - Blood Dallas Jones MD Start: 08-06-2015 End: 08-12-2015 Chest x-ray Dallas Jones MD Start: 08-06-2015 End: 08-06-2015 Coagulation factor induced.INR assay in platelet poor plasma Dallas Jones MD Start: 08-06-2015 End: 08-06-2015 Electrocardiogram, complete Dallas Jimenez i, MD Start: 08-06-2015 End: 12-25-2015 Follow Up Appt 6 months Gely Marmolejo Start: 08-06-2015 End: 08-12-2015 Left Heart Cath Dallas Jones MD Start: 08-06-2015 End: 12-25-2015 QUETA Jones MD Start: 07-09-2015 End: 07-09-2015 Follow Up Appt 6 months Gely Marmolejo Start: 07-09-2015 End: 07-09-2015 QUETA Jones MD Start: 07-09-2015 End: 07-09-2015 Follow Up Appt 6 months Gely Marmolejo Start: 07-09-2015 End: 07-09-2015 QUETA Jones MD Start: 05-28-2015 End: 05-28-2015 LEVI Jones MD Start: 05-28-2015 End: 05-28-2015 Follow Up Appt 6 weeks Dallas Jones MD Start: 05-28-2015 End: 05-29-2015 Thyrotropin [Units/volume] in Serum or Plasma Dallas Jones MD Start: 05-28-2015 End: 05-29-2015 Thyroxine (T4) [Mass/volume] in Serum or Plasma Dallas Jones MD Start: 05-28-2015 End: 08-12-2015 r mobile cv telemetry w/i&report 30 days Dallas Jones MD Start: 05-28-2015 End: 05-28-2015 LEVI Jones MD Start: 05-28-2015 End: 05-28-2015 Follow Up Appt 6 weeks Dallas Jones MD Start: 05-28-2015 End: 08-12-2015 Remote 30 day ecg rev/report Dallas Jones MD Start: 05-28-2015 End: 05-29-2015 Thyroid stimulating hormone (TSH) Dallas Jones MD Start: 05-28-2015 End: 05-29-2015 Thyroxine (T4) Dallas Jones MD Start: 12-19-2014 End: 03-19-2015 *Hepatic Function Panel Gely Marmolejo Start: 12-19-2014 End: 12-20-2014 Documentation of current medications Dallas Jones MD Start: 12-19-2014 End: 12-19-2014 Follow Up Appt 6 months Gely Marmolejo Start: 12-19-2014 End: 03-19-2015 Lipid 1996 panel - Serum or Plasma Dallas Jones MD Start: 12-19-2014 End: 12-19-2014 MMM Dallas Jones MD Start: 12-19-2014 End: 03-19-2015 *Hepatic Function Panel Gely Marmolejo Start: 12-19-2014 End: 12-20-2014 Documentation of current medications Dallas Jones MD Start: 12-19-2014 End: 12-19-2014 Follow Up Appt 6 months Gely Marmolejo Start: 12-19-2014 End: 03-19-2015 Lipid panel [AGGREGATE] Gely Marmolejo Start: 12-19-2014 End: 12-19-2014 MMM Dallas Jones MD Start: 11-09-2014 End: 08-12-2015 Cardiac Rehab Dallas Jones MD Start: 11-09-2014 End: 11-27-2014 Nurse, Teaching, Wound Check (no charge) Dallas Jones MD Start: 11-09-2014 End: 08-12-2015 Cardiac Rehab Dallas Jones MD Start: 11-09-2014 End: 11-27-2014 Nurse, Teaching, Wound Check (no charge) Dallas Jones MD Start: 11-02-2014 End: 11-09-2014 Percutaneous transluminal coronary angioplasty Percutaneous transluminal coronary angioplasty Herlinda Meeks Start: 11-01-2014 History of placement of stent for coronary artery disease History of coronary artery stent placement Catheterization of l eft heart DREW HYMAN SYSTEM DESIGNER Yodio Coronary angioplasty DREW HYMAN SYSTEM DESIGNER Yodio Coronary artery sten t (physical object) DREW HYMAN SYSTEM DESIGNER - PROPOSAL REP Electrophysiology ma pping phase (qualifier value) DREW HYMAN SYSTEM DESIGNER - PROPOSAL REP Excision biopsy of s kin lesion DREW HYMAN SYSTEM DESIGNER - PROPOSAL REP Comment on above: 2019 H/O Spinal surgery DREW GRIMES SYSTEM DESIGNER - [employer] H/O: vasectomy DREW NELSON SYSTEM DESIGNER - PROPOSAL REP Herniated structure (morphologic abnormality) DREW HYMAN SYSTEM DESIGNER - PROPOSAL REP History of tonsillectomy DRU RANDY HYMAN SYSTEM DESIGNER Yodio Plan of Treatment Date Care Activity Detail Author Start: 03-26-2017 End: 03-26-2017 Appointment Appointment [facility] Work Phone: Start: 12-31-2016 End: 12-31-2016 Appointment Appointment [facility] Work Phone: Start: 12-31-2016 End: 01-07-2017 24 hour holter monitor 24 hour holter monitor [facility] Work Phone: Start: 12-31-2016 End: 12-31-2016 Follow Up Appt 3 months Follow Up Appt 3 months [facility] Work Phone: Start: 12-31-2016 End: 12-31-2016 [facility] Work Phone: Start: 12-31-2016 End: 12-31-2016 24 hour holter monitor 24 hour holter monitor [facility] Work Phone: Start: 12-31-2016 End: 12-31-2016 Follow Up Appt 3 months Follow Up Appt 3 months [facility] Work Phone: Start: 12-31-2016 End: 12-31-2016 [facility] Work Phone: Start: 07-16-2016 End: 10-23-2016 HEALTH COACH HEALTH COACH [facility] Work Phone: Start: 07-16-2016 End: 10-23-2016 Follow Up Appt 3 months Follow Up Appt 3 months [facility] Work Phone: Start: 07-16-2016 End: 10-23-2016 HEALTH COACH HEALTH COACH [facility] Work Phone: Start: 07-16-2016 End: 10-23-2016 Follow Up Appt 3 months Follow Up Appt 3 months [facility] Work Phone: Start: 06-12-2016 End: 06-15-2016 *BMP *BMP [facility] Work Phone: Start: 06-12-2016 End: 06-15-2016 CBC W Auto Differential panel - Blood *CBC without Diff [facility] Work Phone: Start: 06-12-2016 End: 06-15-2016 Magnesium *Magnesium [facility] Work Phone: Start: 06-12-2016 End: 06-15-2016 Thyroid stimulating hormone (TSH) *TSH [facility] Work Phone: Start: 06-12-2016 End: 06-15-2016 Thyroxine (T4) *T4 (Total) [facility] Work Phone: Start: 06-12-2016 End: 06-15-2016 Xtrnl mobile cv telemetry w/i&report 30 days 30 Day Holter Monitor [facility] Work Phone: Start: 06-12-2016 End: 06-15-2016 *BMP *BMP [facility] Work Phone: Start: 06-12-2016 End: 06-15-2016 CBC W Auto Differential panel - Blood *CBC without Diff [facility] Work Phone: Start: 06-12-2016 End: 06-15-2016 Magnesium *Magnesium [facility] Work Phone: Start: 06-12-2016 End: 06-15-2016 Remote 30 day ecg rev/report 30 Day Holter Monitor [facility] Work Phone: Start: 06-12-2016 End: 06-15-2016 Thyroid stimulating hormone (TSH) *TSH [facility] Work Phone: Start: 06-12-2016 End: 06-15-2016 Thyroxine (T4) *T4 (Total) [facility] Work Phone: Start: 02-05-2016 End: 02-05-2016 Follow Up Appt 6 months Follow Up Appt 6 months [facility] Work Phone: Start: 02-05-2016 End: 02-05-2016 MMM MMM [facility] Work Phone: Start: 02-05-2016 End: 02-05-2016 Follow Up Appt 6 months Follow Up Appt 6 months [facility] Work Phone: Start: 02-05-2016 End: 02-05-2016 MMM MMM [facility] Work Phone: Start: 01-09-2016 End: 01-09-2016 HEALTH COACH HEALTH COACH [facility] Work Phone: Start: 01-09-2016 End: 01-09-2016 Follow Up Appt 6 months Follow Up Appt 6 months [facility] Work Phone: Start: 01-09-2016 End: 01-09-2016 HEALTH COACH HEALTH COACH [facility] Work Phone: Start: 01-09-2016 End: 01-09-2016 Follow Up Appt 6 months Follow Up Appt 6 months [facility] Work Phone: Start: 09-18-2015 End: 01-07-2017 *Hepatic Function Panel *Hepatic Function Panel [facility] Work Phone: Start: 09-18-2015 End: 01-07-2017 Lipid panel [AGGREGATE] *Lipid Profile CC PCP [facility] Work Phone: Start: 09-18-2015 End: 03-20-2015 *Hepatic Function Panel *Hepatic Function Panel [facility] Work Phone: Start: 09-18-2015 End: 03-20-2015 Lipid panel [AGGREGATE] *Lipid Profile CC PCP [facility] Work Phone: Start: 08-06-2015 End: 08-06-2015 *BMP *BMP [facility] Work Phone: Start: 08-06-2015 End: 08-06-2015 CBC W Auto Differential panel - Blood *CBC without Diff [facility] Work Phone: Start: 08-06-2015 End: 08-12-2015 Chest x-ray X-Ray, Chest, PA & Lateral [facility] Work Phone: Start: 08-06-2015 End: 08-06-2015 Ecg routine ecg w/least 12 lds w/i&r EKG (In office) [facility] Work Phone: Start: 08-06-2015 End: 12-25-2015 Follow Up Appt 6 months Follow Up Appt 6 months [facility] Work Phone: Start: 08-06-2015 End: 08-06-2015 INR Coag RelTime (PPP) *PT/INR [facility] Work Phone: Start: 08-06-2015 End: 08-06-2015 Left Heart Cath Left Heart Cath [facility] Work Phone: Start: 08-06-2015 End: 12-25-2015 MMM MMM [facility] Work Phone: Start: 08-06-2015 End: 08-06-2015 *BMP *BMP [facility] Work Phone: Start: 08-06-2015 End: 08-06-2015 CBC W Auto Differential panel - Blood *CBC without Diff [facility] Work Phone: Start: 08-06-2015 End: 08-12-2015 Chest x-ray X-Ray, Chest, PA & Lateral [facility] Work Phone: Start: 08-06-2015 End: 08-06-2015 Coagulation factor induced.INR assay in platelet poor plasma *PT/INR [facility] Work Phone: Start: 08-06-2015 End: 08-06-2015 Electrocardiogram, complete EKG (In office) [facility] Work Phone: Start: 08-06-2015 End: 12-25-2015 Follow Up Appt 6 months Follow Up Appt 6 months [facility] Work Phone: Start: 08-06-2015 End: 08-06-2015 Left Heart Cath Left Heart Cath [facility] Work Phone: Start: 08-06-2015 End: 12-25-2015 MMM MMM [facility] Work Phone: Start: 07-09-2015 End: 07-09-2015 Follow Up Appt 6 months Follow Up Appt 6 months [facility] Work Phone: Start: 07-09-2015 End: 07-09-2015 MMM MMM [facility] Work Phone: Start: 07-09-2015 End: 07-09-2015 Follow Up Appt 6 months Follow Up Appt 6 months [facility] Work Phone: Start: 07-09-2015 End: 07-09-2015 MMM MMM [facility] Work Phone: Start: 05-28-2015 End: 05-28-2015 HEALTH COACH HEALTH COACH [facility] Work Phone: Start: 05-28-2015 End: 05-28-2015 Follow Up Appt 6 weeks Follow Up Appt 6 weeks [facility] Work Phone: Start: 05-28-2015 End: 05-29-2015 Thyroid stimulating hormone (TSH) *TSH [facility] Work Phone: Start: 05-28-2015 End: 05-29-2015 Thyroxine (T4) *T4 (Total) [facility] Work Phone: Start: 05-28-2015 End: 05-28-2015 Xtrnl mobile cv telemetry w/i&report 30 days 30 Day Holter Monitor [facility] Work Phone: Start: 05-28-2015 End: 05-28-2015 HEALTH COACH HEALTH COACH [facility] Work Phone: Start: 05-28-2015 End: 05-28-2015 Follow Up Appt 6 weeks Follow Up Appt 6 weeks [facility] Work Phone: Start: 05-28-2015 End: 05-28-2015 Remote 30 day ecg rev/report 30 Day Holter Monitor [facility] Work Phone: Start: 05-28-2015 End: 05-29-2015 Thyroid stimulating hormone (TSH) *TSH [facility] Work Phone: Start: 05-28-2015 End: 05-29-2015 Thyroxine (T4) *T4 (Total) [facility] Work Phone: Start: 12-19-2014 End: 03-19-2015 *Hepatic Function Panel *Hepatic Function Panel [facility] Work Phone: Start: 12-19-2014 End: 12-19-2014 Follow Up Appt 6 months Follow Up Appt 6 months [facility] Work Phone: Start: 12-19-2014 End: 03-19-2015 Lipid panel [AGGREGATE] *Lipid Profile CC PCP [facility] Work Phone: Start: 12-19-2014 End: 12-19-2014 MMM MMM [facility] Work Phone: Start: 12-19-2014 End: 03-19-2015 *Hepatic Function Panel *Hepatic Function Panel [facility] Work Phone: Start: 12-19-2014 End: 12-19-2014 Follow Up Appt 6 months Follow Up Appt 6 months [facility] Work Phone: Start: 12-19-2014 End: 03-19-2015 Lipid panel [AGGREGATE] *Lipid Profile CC PCP [facility] Work Phone: Start: 12-19-2014 End: 12-19-2014 MMM MMM [facility] Work Phone: Start: 11-09-2014 End: 11-09-2014 Cardiac Rehab [facility] [address] [place], [address] [facility] Work Phone: Start: 11-09-2014 End: 11-09-2014 Cardiac Rehab [facility] [address] [place], [address] [facility] Work Phone: Patient Education HYPERLIPIDEMIA [facility] Work Phone: Immunizations Immunization Date Immunization Notes Care Provider Fa cili 01-17-2021 influenza virus vaccine, unspecified formulation DREW HYMAN SYSTEM DESIGNER - PROPOSAL REP [facility] 01-17-2021 SARS-CoV-2 mRNA (tozinameran) vaccine DREW HYMAN SYSTEM DESIGNER - PROPOSAL REP [facility] Comment on above: Result Comment: 2020: [id number] 05-29-2020 SARS-CoV-2 mRNA (tozinameran) vaccine DREW HYMAN SYSTEM DESIGNER - PROPOSAL REP [facility] 05-10-2020 SARS-CoV-2 mRNA (tozinameran) vaccine DREW HYMAN SYSTEM DESIGNER - PROPOSAL REP [facility] 01-08-2020 influenza virus vaccine, unspecified formulation DREW HYMAN SYSTEM DESIGNER - PROPOSAL REP [facility] 01-01-2020 Influenza virus vaccine [facility] 12-20-2018 influenza, injectabl e, quadrivalent, preservative free; Translations: [Fluarix PF Quadrivalent ] DREW HYMAN SYSTEM DESIGNER - PROPOSAL REP [facility] 03-19-2018 zoster vaccine recombinant DREW HYMAN SYSTEM DESIGNER - PROPOSAL REP [facility] 01-22-2018 zoster vaccine recombinant DREW HYMAN SYSTEM DESIGNER - PROPOSAL REP [facility] 12-31-2017 influenza virus vaccine, unspecified formulation DREW HYMAN SYSTEM DESIGNER - PROPOSAL REP [facility] 01-28-2017 influenza virus vaccine, unspecified formulation DREW HYMAN SYSTEM DESIGNER - PROPOSAL REP [facility] 12-30-2014 influenza virus vaccine, unspecified formulation DREW HYMAN SYSTEM DESIGNER - PROPOSAL REP [facility] 01-26-2014 influenza virus vaccine, unspecified formulation DREW HYMAN SYSTEM DESIGNER - PROPOSAL REP [facility] Payers Date Payer Category Payer Self-pay [id number] 2023 Unknown [id number] 2021 Medicare [id number] 2021 Private Health Insurance [id number] 2016 Medicare 1950 Unknown [id number] [id number] [id number] 1950 Unknown [id number] 2.16.8 [id number] 1950 Unknown [id number] 2.16.8 [id number] 1950 Unknown [id number] 2.16.8 [id number] Unknown [id number] 2.16.8 [id number] Unknown [id number] 2.16.8 [id number] Unknown [id number] 2.16.8 [id number] Unknown [id number] 2.16.8 [id number] Social History Date Type Detail Facility Start: 12-20-2018 Never smoked t marianne (finding) [facility] Comment on above: No smoke exposure Start: 1950 Sex Assigned At Male [facility] Start: 09-21-2022 End: 09-21-2022 Tobacco smoking status NHIS Unknown if ever smoked [facility] Start: 04-04-2020 Occasional [facility] Start: 04-04-2020 None [facility] Start: 04-04-2020 Spouse/ Signif icant Other [facility] Start: 04-04-2020 Non-smoker [facility] Discharge summary 12-10-2022 Note Date & Type Note Facility 12-10-2022 Discharge summary Note Date/Time December 10, 2022 11:36am [facility] Physical Therapy [facility] [address] [place] [address] / REHABILITATION SERVICES DISCHARGE SUMMARY MR#: [id number] Acct: [id number] Name: AVI DURHAM Rep #: [id number] : 1950 72 From: Cert. VIOLET Brian, OCS Referring Dr.: Dr. Tracey Alcaraz MD Status : REG RCR Insurance: MEDICARE PART A B [facility] Discharge Summary D/C summary: It has been my pleasure to treat AVI DURHAM referred by Dr. Tracey Alcaraz MD, with the diagnosis of S/P POST LAMINECTOMY WITH SPINAL FUSION for a total of 9 visit(s). Discharge Date: Please see the following information for a summary of their discharge status. Subjective Subjective: Patient has major issue with cramp which has been there every since surgery ,walking ,bending and extended sitting only relieve when sitting Pain Bilateral Neck: Pain Intensity (Out of 10): 3 Left Shoulder: Pain Intensity (Out of 10): 3 Overall Improvement % Improvement: 25 Objective Objective/Function: POSTURE: mild forward posture. NEURO: denies paresthesia/tingling ,reflexes L3-4,L4-5,L5-S1 2/3. PALAPTION: UT/levator, scalene left >right. CERVICAL ROM: flexion mod loss ,rotation mod loss ,lateralflexion mod/severe loss ,extension severe loss. MMT: BUE grossly 4/5 except 4-/5 Cramp is unchanged with walking and standing Goals Goal 1:: I with HEP for cervical spine s/p surgery Goal 2:: Patient to demonstrate 50% improvement with improved function and less pain with walking/standing. Goal 3:: Patient to improve cervical ROM for function of recovery to such as neck to drive car Goal 4:: Patient improve neck oswestry by 5 points to improve QOL and function Goal 5:: Patient resume all functional activities with standing/walking extendeddistances . Plan Plan: D/C D/C Information d/c sentence: If there are questions or concerns regarding this patient's physical therapy, please feel free to call me at [phone]. Thank you for the referral of thispatient. Sincerely, Alok Prieto PT, Cert MDT, OCS Balance/Gait/Functional tests Balance/Special Test Scores Oswestry Neck Score: 26 Improvement % Improvement: 25 <Electronically signed by Alok Prieto PT, [place]. T, OCS> 12/10/22 1134 CC: RENA Hyman; Dr. Tracey Alcaraz MD ~ JLA Signed [facility] Work Phone: Evaluation + Plan note Laboratory Note Date & Type Note Facility Evaluation + Plan note Future Appointments Appointment Date:03/20/2021 10:20:00 AM Scheduled Provider:DREW HYMAN APRN, CNP Location:[facility] [facility] Appointment Type:PC OV Follow Up Appointment Date:12/26/2021 09:20:00 AM Scheduled Provider:JUAN BROWN MD Location:UROLOGY Appointment Type:URO OV Future Scheduled TestsPSA, Free 12/13/21 [facility] Evaluation + Plan note Laboratory Note Date & Type Note Facility Evaluation + Plan note Future Appointments Appointment Date:09/25/2021 10:20:00 AM Scheduled Provider:DREW HYMAN APRN, CNP Location:[facility] Appointment Type:PC OV Follow Up Appointment Date:12/26/2021 09:20:00 AM Scheduled Provider:JUAN BROWN MD Location:UROLOGY Appointment Type:URO OV Future Scheduled TestsPSA, Free 12/13/21 [facility] Evaluation + Plan note Laboratory Note Date & Type Note Facility Evaluation + Plan note Future Appointments Appointment Date:03/26/2022 10:20:00 AM Scheduled Provider:DREW HYMAN APRN, CNP Location:[facility] Appointment Type:PC OV Follow Up Appointment Date:12/04/2022 10:40:00 AM Scheduled Provider:JUAN BROWN MD Location:UROLOGY Appointment Type:URO OV Future Scheduled TestsProstate Specific Antigen 12/26/22Prostate Specific Antigen 03/27/22Lipid Profile 03/27/22Vitamin D Level 03/27/22Complete Metabolic Panel 03/27/22 [facility] Evaluation note Note Date & Type Note Facility Evaluation note No assessment information availa [facility] Work Phone: Hospital course Narrative Note Date & Type Note Facility Hospital course Narrative No data available for this section [facility] Discharge instructions Note Date & Type Note Facility Hospital Discharge instructions No data available for this section [facility] Progress note Note Date & Type Note Facility Progress note No data available for this section [facility] Summary Purpose Family History No Family History Records Found Relationship Condition Age at Onset Recorded Date/T felipe father Coronary artery disease Unknown Myocardial infarction Unknown mother Coronary artery disease Unknown sister Coronary artery disease Unknown Advance Directives No Advanced Directives Records Found Advance Directive Response Recorded Date/ Time Advance Directives Yes September 21 1:30pm Living Will Yes September 21, 2022 1:30pm Power of Process Server No September 21 1:30pm Advance Directive Response Recorded Date/ Time Advance Directives Yes September 21 12:30pm Living Will Yes September 21, 2022 12:30pm Power of Process Server No September 21 12:30pm Chief Complaint and Reason for Visit Chief Complaint Dysuria LAMINECTOMY W/ FUSION RX HERE Chief Complaint CERVICAL DISC DEGENE RATION Additional Source Comments (unrecognized sect ion and content) No Status Records FoundNo Status Records FoundNo Status Records Found INFORMATION SOURCE (unrecogn ized section and content) DATE CREATED AUTHOR 09/29/2017 [facility] DATE CREATED AUTHOR AUTHOR'S ORGANIZ ATION 01/07/2022 [facility] ([place]) DATE CREATED AUTHOR AUTHOR'S ORGANIZ ATION 12/10/2023 [facility] Care Team (unrecognized sect ion and content) Team Status: Active Member Role Status Dates Dr. Drew Walker Jr., MD Family Provider Active Dr. Demian Sloan , Primary Care Provider Active Team Status: Active Member Role Status Dates Drew Hyman ACCOUNTS PAYABLE PAYROLL COORDINATOR, ACCOUNTS PAYABLE PAYROLL COORDINATOR-C Primary Care Provider Active Dr. Tracey Alcaraz MD Attending Provider, Referrin g Provider Active Team Status: Active Member Role Status Dates Dr. Demian Sloan , Primary Care Prov ider, Attending Provider, Referring Provider Active Team Status: Inactive Member Role Status Dates Dr. Demian Sloan DO Primary Care Provider Active Dr. Elsa Edwards DO Attending Provider, Referring Prov ider Active Team Status: Inactive Member Role Status Dates Dr. Demian Sloan DO Primary Care Prov ider, Attending Provider, Referring Provider Active Team Status: Inactive Member Role Status Dates Drew Hyman ACCOUNTS PAYABLE PAYROLL COORDINATOR, ACCOUNTS PAYABLE PAYROLL COORDINATOR-C Primary Care Provider Active Dr. Tracey Alcaraz MD Attending Provider, Referrin g Provider Active Team Status: Inactive Member Role Status Dates Dr. Demian Sloan , Primary Care Provider, Attendin g Provider Active Care Team (unrecognized sect ion and content) Care Team Personnel Name: DREW HYMAN SYSTEM DESIGNER - PROPOSAL REP Position: P4 Advanced Practice Nurse Med Service: Employed Provider Member Role: Primary Care Physician Address: Address: [address] [place] [address]- Care Team Related Persons Name: CHAN DURHAM Address: Home [address] [place], [place] [id number] Goals (unrecognized section and content) Goals may be documented in a n alternate section FOR RECORDS PERTAINING TO PATIENTS WHO ARE OR HAVE BEEN ENROLLED IN A CHEMICAL DEPENDENCY/SUBSTANCEABUSE PROGRAM, SOME INFORMATION MAY BE OMITTED. This clinical summary was aggregated from multiple sources. Caution should be exercised in using it in the provision of clinical care. This summary normalizes information from multiple sources, and as a consequence, information in this document may materially change the coding, format and clinical context of patient data. In addition, data may be omitted in some cases. CLINICAL DECISIONS SHOULD BE BASED ON THE PRIMARY CLINICAL RECORDS. [facility] [employer] [facility]. provides no warranty or guarantee of the accuracy or completeness of information in this document.
--- NOTE | 2025-01-06 09:38 | CT_ITS ---
PROCEDURE: SPINE CERVICAL WITHOUT CONTRAS 01/06/2025 REASON FOR EXAM: CERVICAL MYELOPATHY TECHNIQUE: Procedure Code: CTSPC Modality: CT Procedure: SPINE CERVICAL WITHOUT CONTRAS Coronal and Sagittal reconstruction series were provided. One or more dose reduction techniques were used (e.g., Automated exposure control, adjustment of the mA and/or kV according to patient size, use of iterative reconstruction technique. RADIATION DOSE SUMMARY: CTDlvol: 21.71 mGy DLP: 581.43 mGycm COMPARISON: X-ray 01/05/2025. FINDINGS: Alignment: Anatomical. Vertebrae: No acute bony abnormalities. Status post laminectomies and posterior fusion at C2, C3, C4, C5. Soft Tissues: No soft tissue abnormalities. The lungs are clear. Disc levels: Mild bilateral foramina and canal stenosis at C2-C3. CT/Spine Cervical without Contras IMPRESSION: Status post laminectomies and posterior fusion at C2, C3, C4, C5. Reading Location: [id number]
== END | disposition home or self-care (01) ==
LOC: CT 09:34
PROVIDERS: PCP Family Medicine; Referring Provider Orthopaedic Surgery Orthopaedic Surgery of the Spine; Visit Provider Orthopaedic Surgery Orthopaedic Surgery of the Spine
DX: G95.9 Disease of spinal cord, unspecified (principal); Z98.1 Arthrodesis status
CPT/HCPCS: 72125

== ENCOUNTER → 2025-01-08 | Outpatient (CLI) | payer MEDICARE, OTHER, SELFPAY ==
--- NOTE | 2025-01-08 16:13 | MRI_ITS ---
PROCEDURE: SPINE CERVICAL (ROUTINE) 01/08/2025 REASON FOR EXAM: CERVICAL MYELOPATHY TECHNIQUE: Procedure Code: MRISPC Modality: MR Procedure: SPINE CERVICAL (ROUTINE) Multiplanar and multisequence images were obtained without IV contrast administration. COMPARISON: Cervical spine MR 03/05/2023. FINDINGS: Vertebrae: Cervical vertebral body heights are preserved. Bone marrow signal is unremarkable. Status post laminectomies and posterior fusion at C2, C3, C4, C5. Alignment: Normal. No spondylolisthesis. Spinal Cord: Cervical spinal cord is of normal size and signal intensities. Structures at the foramen magnum are unremarkable. C2-3: Disc desiccation. Facet joint arthropathy. Mild bilateral foramina stenosis. Mild canal stenosis. C3-4: Unremarkable C4-5: Unremarkable C5-6: Unremarkable C6-7: Unremarkable C7-T1: Uncovertebral hypertrophy. Mild left foramina stenosis. No canal stenosis. MRI/Spine Cervical (Routine) IMPRESSION: Status post laminectomies and posterior fusion at C2, C3, C4, C5. Mild bilateral foramina stenosis and mild canal stenosis at C2-C3. Reading Location: [facility]
== END | disposition home or self-care (01) ==
LOC: MRI 16:10
PROVIDERS: PCP Family Medicine; Referring Provider Orthopaedic Surgery Orthopaedic Surgery of the Spine; Visit Provider Orthopaedic Surgery Orthopaedic Surgery of the Spine
DX: G95.9 Disease of spinal cord, unspecified (principal); Z98.1 Arthrodesis status
CPT/HCPCS: 72141

== ENCOUNTER → 2025-03-07 | Outpatient (CLI) | payer MEDICARE, OTHER, SELFPAY ==
--- NOTE | 2025-03-07 13:25 | NEURO ---
NCS and/or EMG Patient Report Ordering Doctor: Ronan Dias DATE OF SERVICE: 03/07/25 Ryland presents with complaints of numbness and tingling in both hands. He reports symptoms to be worse on the left side. Electrodiagnostic findings: Left median motor nerve demonstrates prolonged distal latency with normal amplitude and reduced conduction velocity. Right median motor nerve demonstrates borderline prolonged distal latency with normal amplitude and conduction velocity. Ulnar motor response within normal limits bilaterally, including conduction across the elbow. Prolonged left median F?wave. Prolonged median sensory latency at the wrist bilaterally. Normal ulnar and radial sensory responses. Needle EMG testing was performed in the upper limbs. All muscles tested showed no evidence of denervation with normal motor unit action potentials Electrodiagnostic impression: This is an abnormal study. 1. Electrodiagnostic findings suggestive of bilateral median mononeuropathy. This is consistent with a moderate left carpal tunnel syndrome and a mild right carpal tunnel syndrome. 2. There is no electrodiagnostic evidence for cervical radiculopathy. Multi Select Codes Neurology Neurology Interp Codes: 68581-71 Musc test done w/n test comp (interp) (2) and 30860-32 Nrv cndj test 9-10 studies (interp)
== END | disposition home or self-care (01) ==
LOC: PSN 12:10
PROVIDERS: PCP Family Medicine; Referring Provider Orthopaedic Surgery Orthopaedic Surgery of the Spine; Visit Provider Orthopaedic Surgery Orthopaedic Surgery of the Spine
DX: M54.12 Radiculopathy, cervical region (principal); G56.00 Carpal tunnel syndrome, unspecified upper limb
CPT/HCPCS: 95886; 95911

== ENCOUNTER 2025-03-27 08:22 | Day surgery (SDC) | payer MEDICARE, OTHER, SELFPAY ==
--- NOTE | 2025-03-26 12:08 | PAT.ANE_ITS ---
Pre-Assessment Diagnosis/Proposed Procedure Planned Operative Procedure(s): (L) Left Carpal Tunnel Release Anesthesia History Anesthesia History - global sourcing manager: Anesthesia History - global sourcing manager Hx Hospitalization No 03/23/25 11:25 Any Problems With Anesthesia No 03/23/25 11:25 Cholinesterase deficiency No 03/23/25 11:25 You/Your Family Experience No 03/23/25 11:25 fever (hyperthermia) with Relationship Recent Exposure to Contagious Disease Does patient have nerve No 03/23/25 11:25 stimulator Patient instructed to have device shut off --Does patient have Pacemaker or ICD? When Was Last Pacemaker Check QUESTION #4 FULL TEXT: You/Your Family Experience fever (hyperthermia) with Anesthesia Last Oral Intake Last Oral intake: Last Oral Intake NPO since Meds taken in AM with sips of water? Meds patient instructed to take am of surgery PONV PONV - global sourcing manager: PONV - global sourcing manager Female No 03/23/25 11:25 HX of Motion Sickness No 03/23/25 11:25 HX of N/V After Surgery No 03/23/25 11:25 Non-Smoker Yes 03/23/25 11:25 Duration of Surgery greater No 03/23/25 11:25 than 60 minutes Number of Risk Factors 1 03/23/25 11:25 PONV Score Low Risk 03/23/25 11:25 Height & Weight Height & Weight: Anesthesia: Height & Weight Height 5 ft 10 in 03/20/25 08:51 Respiratory Assessment Respiratory Assessment - global sourcing manager: Respiratory Tract Infection Hx - global sourcing manager Hx Respiratory Tract Infection No 03/23/25 11:25 STOP Sleep Apnea STOP Sleep Apnea - global sourcing manager: STOP Sleep Apnea - global sourcing manager Hx Hypertension No 03/23/25 11:25 Hx Sleep Apnea No 03/23/25 11:25 CPAP BIPAP Do you snore loudly (louder No 03/23/25 11:25 than talking or can be heard Do you often feel tired/ No 03/23/25 11:25 fatigued/ sleepy during daytime? Has anyone observed you stop No 03/23/25 11:25 breathing during sleep? STOP Results Negative 03/23/25 11:25 QUESTION #5 FULL TEXT : Do you snore loudly (louder than talking or can be heard through closed doors)? 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 Specify any problems Hx of Preganancy in last 3 N/A 03/23/25 11:25 Months Nurse Filling Out Transfusion VCHRISTIN 03/23/25 11:25 & Questions: Date: 03/23/25 03/23/25 11:25 Time: 11:26 03/23/25 11:25 Patient unable to answer at this time (ie. confused, unrespo /Reproduction History /Reproductive History - global sourcing manager: /Reproductive Hx- global sourcing manager Hx Now No 03/23/25 11:25 Gestational Age (in weeks): EDC: Hx Hx Para Hx Section SAB No 03/23/25 11:25 Does the father of the baby or his family experience fever w Father of the baby Malignant Hypertension history comment Active Medications Active Medications: Current Medications Generic Name Dose Route Start Last Admin Trade Name Freq PRN Reason Stop Dose Admin Cefazolin Sodium 2 gm/ Sodium 110 mls @ 200 mls/hr 03/27/25 07:00 Chloride IV 03/27/25 07:32 INTRAOP [facility] Medical History (Updated 03/23/25 @ 11:25 by Stephanie Burrell) Wears hearing aid Wears glasses Cancer Alcohol use History of steroid therapy Arthritis High cholesterol Easy bruising History of hiatal hernia Non-smoker History of echocardiogram History of stress test Cardiology follow-up encounter Cervical myelopathy Degenerative disc disease, cervical Back pain Neck pain Knee pain Atherosclerosis of coronary artery of [place] heart with angina pectoris Paroxysmal atrial fibrillation HLD (hyperlipidemia) Home Medications ?Medication ?Instructions ?Recorded ?Last Taken ?Type aspirin 81 mg chewable tablet 81 mg PO DAILY 04/04/20 03/13/25 History alfuzosin 10 mg tablet,extended 10 mg PO DAILY Prostat e 03/23/25 Unknown History release 24 hr atorvastatin 40 mg tablet 40 mg PO DAILY Heart disease 03/23/25 Unknown History Allergy/AdvReac Type Severity Reaction Status Date / Time amiodarone AdvReac headaches Verified 03/23/25 11:07 Family History Father CAD (coronary artery disease) Myocardial infarction Mother CAD (coronary artery disease) Sister CAD (coronary artery disease) Surgical History (Updated 03/23/25 @ 11:25 by Stephanie Burrell) Hx of tonsillectomy History of fusion of cervical spine History of radiofrequency ablation procedure for cardiac arrhythmia (12/2016) History of herniorrhaphy History of vasectomy History of left heart catheterization (08/08/15) History of coronary artery stent placement (11/01/14) Social History Smoking Status: Never smoker alcohol intake: current alcohol intake frequency: a few times a week substance use type: does not use caffeine: Yes Type: coffee Number of servings: 2 Audit: Pertinent Findings Pertinent Findings EKG Perinent findings: 04/06/2020. Normal sinus rhythm 83 bpm. Echo (EF%) pertinent findings: 11/01/2014. EF 50%. Structurally normal valves. Consult pertinent findings: Cardiology 03/13/2021. Coronary artery disease. Last stress test in 2020 negative. History of coronary artery stent placement. 11/01/2014. Continue medical therapy. Paroxysmal A-fib. Stable. No anticoagulation at this time. Recommendation Anesthesia Recommendation Anesthesia recommendation: OPTIMIZED for anesthesia
[2025-03-27] VITALS (9 sets, daily range): BP systolic 94–114; BP diastolic 56–75; PULSE 64–69; RESP 16–18; TEMP 36.4–36.7; O2SAT 96–100; BMI 23.2
--- OUTSIDE RECORDS SUMMARY | 2025-03-27 08:45 | XMS RPT_ITS | CCD ---
Author Organization [facility] Care Team Providers Care Manager Life Name Role Phone DIANE Rosenthal, Negra Hong Unavailable Unavailruddy Rosenthal RN, Negra Hong Unavailable Unavailabl ariana Rosenthal RN, Negra Hong Unavailable Unavailabl e Herlinda Meeks Unavailable DREW WALKER JR. Unavailable Unavailable DREW WALKER JR. Unavailable Unavailable DREW WALKER JR. Unavailable Unavailable Herlinda Meeks Unavailable ONEL ESPITIAN - LIBRARY HISTORIAN, DREW Veras Primary Care Phys reading hospital KEVIN REYES., DR. JUAN Miller Attending Unava ilable ONEL LIBRARY HISTORIAN, DREW Primary Care Unavailabl e ONEL LIBRARY HISTORIAN, DREW Primary Care Unavailabl e ONEL LIBRARY HISTORIAN, DREW Attending Unavailabl e ONEL LIBRARY HISTORIAN, DREW Primary Care Unavailabl e ONEL LIBRARY HISTORIAN, DREW Attending Unavailruddy BROWN MD., DR. JUAN Miller Attending Unava ilable ONEL LIBRARY HISTORIAN, DREW Primary Care Unavailabl e Dr. Demian Sloan DO Primary Care Physician [phone] Dr. Demian Sloan DO Referring Provider Dr. Ronan Dias MD Attending Physician [phone] Dr. Dallas Jones MD Attending Physician Dr. Ronan Dias MD Referring Provider Ronan Dias Attending Unavailable Demian Sloan Referring Unavailable Demian Sloan Primary Care Unavailable Ronan Dias Attending Unavailable Demian Sloan Primary Care Unavailable Ronan Dias Referring Unavailable Demian Sloan Primary Care Unavailable Ronan Dias Referring Unavailable Ronan Dias Attending Unavailable Demian Sloan Primary Care Unavailable Dallas Jones Attending Unavailable Demian Sloan Referring Unavailable Demian Sloan Primary Care Unavailable Ronan Dias Attending Unavailable Allergies Allergy Classification Reported Allergen(s) Allergy Type Date of Onset Reaction(s) Facility (17 sources) amiodarone; Translations: [amiodarone] drug allergy 7 headaches, ED, Weakness, headaches [facility] Work Phone: [phone] (8 sources) NKDA; Translations: [NKDA] propensity to adverse reactions 5 NONE [facility] Work Phone: [phone] (3 sources) amLODIPine; Translations: [amlodipine] Drug Allergy Headache (finding) [facility] Work Phone: (3 sources) busPIRone; Translations: [buspirone] Drug Allergy Lightheadedness (finding) [facility] Work Phone: Medications Current Medications Medication Drug Class(es) Dates Sig (Normalized) Sig (Original) 24 hr alfuzosin hydrochloride 10 mg extended release oral tablet (14 sources) alpha-Adrenergic Andie Start: 12-13-2020 End: 12-21-2022 alfuzosin 10 mg oral tablet, extended release Dose : 10 mg = 1 tab(s), Oral, qHS, # 90 tab(s), 3 Refill(s), Pharmacy: [facility], Benign prostatic hyperplasia (BPH) with straining on urination, 175.3, cm, 12/26/21 9:13:00 EDT, Height, kg, 12/26/21 9:20:00 EDT, Dosing Weight Start Date: 12/26/21 Stop Date: 12/21/22 Status: Ordered Start: 03-18-2018 End: 03-12-2020 take 1 tablet by mouth once daily Alfuzosin 10 mg tablet extended release 24 hr Discontinued 10 mg PO DAILY March 18, 2018 1:00am March 12, 2020 10:19am aspirin 81 mg delayed release oral tablet (20 sources) Nonsteroidal Anti-inflammatory Drug Start: 03-20-2021 aspirin 81 mg ora l delayed release tablet Dose : 81 mg = 1 tab(s), Oral, qDay, # 30 tab(s), 0 Refill(s) Start Date: 03/20/21 Status: Ordered Start: 04-04-2020 take 1 tablet by dianna th once daily Aspirin 81 MG tablet,chewable Active 81 mg PO DAILY April 04, 2020 1:00am Complies with drug therapy Start: 11-09-2014 End: 12-31-2016 take 1 tablet by mouth once daily ASPIRIN 81 MG TABS One tablet by mouth daily ASPIRIN [id number] Negra Rosenthal RN Start: 11-09-2014 take 1 tablet by dianna th once daily ASPIRIN 81 MG TABS One tablet by mouth daily ASPIRIN [id number] Negra Rosenthal RN Start: 11-08-2014 End: 03-12-2020 take 1 tablet by mouth once daily Aspirin 81 MG tablet,chewable Discontinued 81 mg PO DAILY@0800 November 08, 2014 12:00am March 12, 2020 10:20am cholecalciferol 0.05 mg oral capsule (11 sources) Vitamin D Start: 03-12-2020 take 1 capsule by mouth once daily Cholecalciferol (Vitamin D3) 50 mcg (2,000 unit) capsule Active 50 ug PO DAILY March 12, 2020 1:00am supplement Complies with drug therapy sertraline 50 mg oral tablet (1 source) Serotonin Reuptake Inhibitor Start: 09-17-2020 End: 06-14-2021 Zoloft 50 mg oral tablet Dose : 50 mg = 1 tab(s), Oral, qDay, # 90 tab(s), 2 Refill(s), Pharmacy: [facility], [place] (generalized anxiety disorder), 176, cm, 09/17/20 10:14:00 EDT, Height, kg, 09/17/20 10:14:00 EDT, Dosing Weight Start Date: 09/17/20 Stop Date: 06/14/21 Status: Ordered vitamin b12 1 mg oral capsule (11 sources) Vitamin B12 Start: 04-04-2020 take 1 capsule by mouth once daily Cyanocobalamin (Vitamin B-12) 1,000 MCG capsule Active 1000 ug PO DAILY April 04, 2020 1:00am supplement Complies with drug therapy Vitamin C 250 mg oral tablet (2 sources) Start: 12-16-2021 Vitamin C 250 mg oral tablet Dose [...] XANAX 0.5 MG TABS as needed ALPRAZOLAM [id number] Luz Cowart RN amiodarone hydrochloride 200 mg oral tablet (10 sources) Antiarrhythmic Start: 07-16-2016 End: 09-17-2016 AMIODARONE HCL 200 MG TABS One tablet by mouth twice daily for two weeks then daily AMIODARONE HCL [id number] Negra Rosenthal RN amoxicillin 875 mg / clavulanate 125 mg oral tablet (11 sources) Penicillin-class Antibacterial Start: 09-26-2018 End: 03-07-2019 Amoxicillin-Pot Clavulanate 875-125 mg tablet Discontinued 1 {tbl} PO TWICE A DAY September 26, 2018 12:00am March 07, 2019 10:42am Start: 09-26-2018 End: 03-07-2019 take 1 tablet by mouth twice daily Amoxicillin-Pot Clavulanate Discontinued 1 TABLET PO TWICE A DAY September 26, 2018 12:00am March 07, 2019 10:42am atorvastatin 20 mg oral tablet (4 sources) HMG-CoA Reductase Inhibitor Start: 11-09-2014 take 1 tablet by mouth once daily ATORVASTATIN CALCIUM 20 MG TABS One tablet by mouth daily ATORVASTATIN CALCIUM [id number] MD Karen Marmolejo Bifid,Inf Mendoza fuller (6 sources) Start: 08-08-2015 End: 03-18-2018 Luciano Jones,In Mendoza jeter Discontinued 1 EACH PO DAILY August 07, 2015 11:00pm March 18, 2018 11:15am Start: 08-08-2015 End: 03-18-2018 B.Animalis,Bifid,Infantis,Lo ng Discontinued 1 EACH PO DAILY August 08, 2015 12:00am March 18, 2018 12:15pm B.Animalis,Bifid,Infantis,Lo ng 1 EACH tablet (5 sources) Start: 08-08-2015 End: 03-18-2018 B.Animalis,Bifid,Infantis,Lo ng 1 EACH tablet Discontinued 1 NMA PO DAILY August 08, 2015 12:00am March 18, 2018 12:15pm clopidogrel 75 mg oral table t (20 sources) [id number] Platel et Inhibi tor Start: 11-08-2014 End: 03-13-2021 take 1 tablet by mouth once daily Clopidogrel (Plavix) 75 mg tablet Discontinued 75 mg PO daily March 11, 2020 10:27am April 04, 2020 8:25pm fish oil (10 sources) Start: 12-13-2014 End: 12-19-2014 take 1 capsul e by mouth once daily FISH OIL CAPS One capsule by mouth daily OMEGA-3 FATTY ACIDS CAPS [id number] Dallas Jones MD Start: 12-13-2014 take 1 capsule by mo [facility] once daily FISH OIL CAPS One capsule by mouth daily OMEGA-3 FATTY ACIDS CAPS [id number] Luz Cowart RN Start: 12-13-2014 take 1 capsule by mo [facility] once daily FISH OIL CAPS One capsule by mouth daily OMEGA-3 FATTY ACIDS CAPS [id number] Luz Cowart RN Start: 12-13-2014 End: 12-19-2014 take 1 capsule by mouth once daily FISH OIL CAPS One capsule by mouth daily OMEGA-3 FATTY ACIDS CAPS [id number] Dallas Jones MD fluticasone propionate 0.05 mg/actuat metered dose nasal spray (20 sources) Corticosteroid Start: 08-08-2015 End: 03-18-2018 Fluticasone Propionate 1 SPRAY spray,suspension Discontinued 1 NMA NASAL DAILY August 08, 2015 12:00am March 18, 2018 12:15pm Start: 08-08-2015 End: 03-18-2018 Fluticasone Propionate Disco ntinued 1 SPRAY NASAL DAILY August 08, 2015 12:00am March 18, 2018 12:15pm Start: 07-09-2015 End: 12-31-2016 FLONASE 50 MCG/ACT SUSP Take as directed (0.05 Mg/inh) FLUTICASONE PROPIONATE [id number] Dallas Jones MD Start: 07-09-2015 FLONASE 50 MCG /ACT SUSP Take as directed (0.05 Mg/inh) FLUTICASONE PROPIONATE Dallas Jones MD linaclotide 0.145 mg oral capsule (9 sources) Guanylate Cyclase-C Agonist Start: 02-05-2016 End: 12-31-2016 LINZESS 145 MCG CAPS One tablet by mouth as needed LINACLOTIDE [id number] Dallas Jones MD Start: 02-05-2016 LINZESS 145 MC G CAPS One tablet by mouth as needed LINACLOTIDE [id number] Dallas Jones MD lisinopril 5 mg oral tablet (10 sources) Angiotensin Converting Enzyme Inhibitor Start: 11-09-2014 End: 12-19-2014 take 1 tablet by mouth once daily LISINOPRIL 5 MG TABS One half tablet by mouth daily LISINOPRIL [id number] Dallas Jones MD 24 hr metoprolol succinate 25 mg extended release oral tablet (20 sources) beta-Adrenergic Andie Start: 03-18-2018 End: 03-07-2019 take 2 tablets by mouth once daily Metoprolol Succinate (Toprol Xl) 25 mg tablet extended release 24 hr Discontinued 12.5 mg PO daily March 18, 2018 12:15pm March 07, 2019 10:34am Start: 06-14-2017 End: 03-18-2018 take 1 tablet by mouth once daily Metoprolol Succinate (Toprol Xl) 25 mg tablet extended release 24 hr Discontinued 25 mg PO daily June 14, 2017 2:20pm March 18, 2018 12:15pm Start: 01-20-2017 take 1 tablet by dianna th once daily TOPROL XL 25 MG [id number] One tablet by mouth daily METOPROLOL SUCCINATE [id number] Dallas Jones MD Start: 05-28-2015 End: 07-16-2016 take 1 tablet by mouth once daily TOPROL XL 25 MG [id number] One tablet by mouth daily METOPROLOL SUCCINATE [id number] Dallas Jones MD Start: 05-28-2015 take 1 tablet by dianna th once daily TOPROL XL 25 MG [id number] One tablet by mouth daily METOPROLOL SUCCINATE [id number] Dallas Jones MD Start: 05-28-2015 End: 07-16-2016 take 1 tablet by mouth once daily TOPROL XL 25 MG [id number] One tablet by mouth daily METOPROLOL SUCCINATE [id number] Dallas Jones MD Start: 11-08-2014 End: 06-14-2017 take 1 tablet by mouth once daily Metoprolol Tartrate 25 MG tablet Discontinued 25 mg PO DAILY November 08, 2014 12:00am June 14, 2017 2:18pm pantoprazole 40 mg delayed release oral tablet (20 sources) Proton Pump Inhibitor Start: 04-06-2020 End: 06-14-2021 Pantoprazole 40 mg tablet,delayed release (DR/EC) Discontinued 40 mg PO TWICE A DAY 90 0 April 06, 2020 12:20pm March 13, 2021 11:16am gerd 40 mg twice daily for 1 month then follow-up Dr. Quintanilla Start: 03-07-2019 End: 04-06-2020 take 1 tablet by mouth once daily Pantoprazole 40 mg tablet,delayed release (DR/EC) Discontinued 40 mg PO DAILY 90 0 March 12, 2020 10:19am April 06, 2020 12:21pm gerd Start: 03-07-2019 End: 03-12-2020 Pantoprazole 40 mg tablet,de layed release (DR/EC) Discontinued PO 90 0 March 07, 2019 1:00am March 12, 2020 10:21am Start: 03-07-2019 End: 03-12-2020 Pantoprazole Discontinued PO 90 March 07, 2019 1:00am March 12, 2020 10:21am Start: 07-09-2015 End: 08-06-2015 take 1 tablet by mouth once daily PROTONIX 20 MG TBEC One tablet by mouth daily PANTOPRAZOLE SODIUM [id number] Dallas Jones MD penicillin v potassium 500 mg oral tablet (11 sources) Start: 04-04-2020 End: 03-13-2021 take 1 tablet by mouth four times daily Penicillin V Potassium 500 MG tablet Discontinued 500 mg PO 4 TIMES DAILY April 04, 2020 1:00am March 13, 2021 11:16am TOOTH PROBIOTIC PRODUCT (2 sources) Start: 07-09-2015 take 1 tablet by mouth once daily 4X PROBIOTIC TABS One tablet by mouth daily PROBIOTIC PRODUCT [id number] Dallas Jones MD Start: 07-09-2015 End: 01-09-2016 take 1 tablet by mouth once daily 4X PROBIOTIC TABS One tablet by mouth daily PROBIOTIC PRODUCT [id number] Patti Toribio PA-C PROBIOTIC PRODUCT (8 sources) Start: 07-09-2015 take 1 tablet by mouth once daily 4X PROBIOTIC TABS One tablet by mouth daily PROBIOTIC PRODUCT [id number] Dallas Jones MD Start: 07-09-2015 End: 01-09-2016 take 1 tablet by mouth once daily 4X PROBIOTIC TABS One tablet by mouth daily PROBIOTIC PRODUCT [id number] Patti Toribio PA-C Start: 07-09-2015 take 1 tablet by dianna th once daily 4X PROBIOTIC TABS One tablet by mouth daily PROBIOTIC PRODUCT [id number] Dallas Jones MD Start: 07-09-2015 End: 01-09-2016 take 1 tablet by mouth once daily 4X PROBIOTIC TABS One tablet by mouth daily PROBIOTIC PRODUCT [id number] Patti Toribio PA-C RANITIDINE HCL TABS (4 sources) Histamine-2 Receptor Antagonist Start: 12-31-2016 take 1 tablet by mouth once daily ZANTAC 75 TABS One tablet by mouth daily RANITIDINE HCL TABS [id number] Dallas Jones MD Start: 12-31-2016 take 1 tablet by dianna th once daily ZANTAC 75 TABS One tablet by mouth daily RANITIDINE HCL TABS [id number] Dallas Jones MD rivaroxaban 15 mg oral tablet (4 sources) Factor Xa Inhibitor Start: 12-31-2016 take 1 tablet by mouth once daily XARELTO 15 MG TABS One tablet by mouth daily RIVAROXABAN [id number] Dallas Jones MD simvastatin 20 mg oral tablet (20 sources) HMG-CoA Reductase Inhibitor Start: 06-18-2017 End: 03-24-2022 take 1 tablet by mouth once daily in the evening Simvastatin 20 mg tablet Discontinued 20 mg PO EVERY EVENING 90 3 March 11, 2020 10:27am April 04, 2020 8:25pm Start: 11-09-2014 SIMVASTATIN 20 MG TABS one tablet each evening SIMVASTATIN [id number] Negra Rosenthal RN Start: 11-08-2014 End: 06-18-2017 take 2 tablets by mouth once daily Simvastatin 10 MG tablet Discontinued 20 mg PO DAILY 90 3 June 17, 2017 5:36pm June 18, 2017 10:16am Start: 11-08-2014 End: 06-18-2017 take 20 mg by mouth once daily Simvastatin Discontinue d 20 MG PO DAILY June 17, 2017 5:36pm June 18, 2017 10:16am tobramycin 3 mg/ml ophthalmic solution (11 sources) Aminoglycoside Antibacterial Start: 09-26-2018 End: 03-07-2019 take 0.3 drop(s) into the eye(s) every two hours Tobramycin 0.3 % drops Discontinued 1 NMA OPHTHALMIC Q2H 5 0 September 26, 2018 12:00am March 07, 2019 10:42am to each eye while awake for 5 days Problems Active Problems Problem Classification Problem Date Documented Date Episodic/Chronic Anxiety disorders (3 sources) Generalized anxiety disorder 08-23-2020 Chronic Cardiac dysrhythmias (19 sources) Paroxysmal atrial fibrillation; Translations: [Atrial fibrillation] Onset: 05-28-19 16 05-28-2015 Chronic Comment on above: Cryo PVI 2017 Coronary atherosclerosis and other heart disease (20 sources) Coronary atherosclerosis; Translations: [Atherosclerotic heart disease of [place] coronary artery without angina pectoris] Onset: 11-10-19 Resolved : 01-22-20 16 10-09-2015 Chronic Coronary atherosclerosis and other heart disease (8 sources) Presence of coronary angioplasty implant and graft; Translations: [Stented coronary artery] Onset: 11-10-19 15 11-09-2014 Episodic Diseases of white blood cells (3 sources) Leukopenia 09-17-2020 Chronic Disorders of lipid metabolism (19 sources) Hyperlipidemia; Translations: [Hyperlipidemia, unspecified] Onset: 12-14-19 15 12-13-2014 Chronic Esophageal disorders (6 sources) Gardner's esophagus; Translations: [Gastroesophageal reflux disease] 12-10-2016 Chronic Hyperplasia of prostate (3 sources) Straining on urination due to benign prostatic hypertrophy 11-01-2020 Chronic Inflammation; infection of eye (except that caused by tuberculosis or sexually transmitteddisease) (11 sources) Conjunctivitis; Translations: [Unspecified conjunctivitis] 04-04-2020 Episodic Nonspecific chest pain (16 sources) Chest pain; Translations: [Chest pain, unspecified] Onset: 08-06-19 16 08-06-2015 Episodic Nutritional deficiencies (2 sources) Vitamin D deficiency 03-20-2021 Chronic Other circulatory disease (3 sources) H/O: heart disorder 08-28-2020 Episodic Other connective tissue disease (11 sources) History of cervical spine fusion; Translations: [Arthrodesis status] 01-05-2025 Episodic Other connective tissue disease (1 source) Arthrodesis status; Translations: [Arthrodesis status] Onset: 01-06-20 Episodic Other gastrointestinal disorders (3 sources) Irritable bowel syndrome 12-10-2016 Chronic Other inflammatory condition of skin (3 sources) Psoriasis 09-17-2020 Chronic Other nervous system disorders (5 sources) Cervical myelopathy; Translations: [Disease of spinal cord, unspecified] 01-05-2025 Chronic Other nervous system disorders (1 source) Carpal tunnel syndrome, unspecified upper limb; Translations: [Carpal tunnel syndrome, unspecified upper limb] Onset: 01-11-20 Chronic Other nervous system disorders (1 source) Disease of spinal cord, unspecified; Translations: [Disease of spinal cord, unspecified] Onset: 01-20-20 25 Chronic Other nervous system disorders (4 sources) Carpal tunnel syndrome; Translations: [Carpal tunnel syndrome, unspecified upper limb] 01-10-2025 Chronic Other non-traumatic joint disorders (3 sources) Multiple joint pain 12-20-2018 Episodic Other nutritional; endocrine; and metabolic disorders (3 sources) History of hypercholesterolemia 08-28-2020 Episodic Other screening for suspected conditions (not mental disorders or infectious disease) (3 sources) Raised prostate specific antigen 10-31-2020 Episodic Other upper respiratory infections (11 sources) Acute maxillary sinusitis; Translations: [Acute maxillary sinusitis, unspecified] 04-04-2020 Episodic Spondylosis; intervertebral disc disorders; other back problems (17 sources) Degeneration of cervical intervertebral disc; Translations: [Other cervical disc degeneration, unspecified cervical region] 01-05-2025 Chronic Spondylosis; intervertebral disc disorders; other back problems (6 sources) Radiculopathy, cervical region; Translations: [Cervicalgia] Onset: 01-06-20 25 01-10-2025 Episodic Unclassified (4 sources) Long-term drug therapy; Translations: [Other assisted (current) drug therapy] Onset: 12-14-19 15 12-13-2014 Unclassified (1 source) Unknown / UNK(Unknown) Onset: 10-13-19 17 Unclassified (18 sources) Patient encounter status 08-23-2020 Past or Other Problems Problem Classification Problem Date Documented Da te Episodic/Chronic Cardiac dysrhythmias (5 sources) Palpitations; Translations: [Palpitations] Onset: 06-12-2016 06-12-2016 Episodic Other aftercare (1 source) Other assisted (current) drug therapy; Translations: [Other assisted (current) drug therapy] Onset: 12-13-2014 12-13-2014 Episodic Residual codes; unclassified (1 source) Family history of sudden ; Translations: [Family history of other specified conditions] 12-19-2014 Episodic Unclassified (9 sources) Family history of ischemic heart disease and other diseases of the circulatory system; Translations: [Family history of sudden ] 12-19-2014 Episodic Unclassified (8 sources) Percutaneous transluminal coronary angioplasty ; Translations: [Coronary angioplasty status] Onset: 11-02-2014 Resolved: 11-09-2014 11-09-2014 Unclassified (1 source) Z12.5 Onset: 10-12-2016 Results Test Name Value Interpretation Reference Range Facility Orthopedic Visit Reporton Orthopedic Visit Report [facility] [address] [place] [id number] OFFICE VISIT Date of Service: 01/10/25 MR#: [id number] Acct: [id number] Name: AVI DURHAM Rep #: [id number] : 1950 Provider: Dr. Ronan Dias MD Age/Sex: 74/M Location: [facility] [email or web address] Status: Signed Intake Vital Signs 01/05/25 11:19 01/10/25 13:32 Height 5 ft 10 in 5 ft 10 in Weight: 160 lb 160 lb BMI 22.9 22.9 Intake Visit Reasons: CERVICAL SPINE Chief Complaint: Cervicla spine MRI/CT review Accompanied by: Is patient in pain?: Yes Pain scale (1-10): 6 Allergies amiodarone Adverse Reaction (Verified 01/10/25 13:36) headaches Medications ???Medication ???Instructions ???Recorded ???Confirmed ???Type cholecalciferol (vitamin D3) 50 50 mcg PO DAILY supplement 0 01/10/25 History mcg (2,000 unit) capsule aspirin 81 mg chewable tablet 81 mg PO DAILY 04/04/20 01/10/25 H istory cyanocobalamin (vitamin B-12) 1,000 mcg PO DAILY supplement 03/0701/10/25 History 1,000 mcg capsule simvastatin 20 mg tablet 20 mg PO QPM cholesterol #90 tabs 07/31/21 01/10/25 Rx Have you fallen in the past year?: No PFSH Medical History Cervical myelopathy Degenerative disc disease, cervical Back pain Neck pain Knee pain Atherosclerosis of coronary artery of [place] heart with angina pectoris Paroxysmal atrial fibrillation HLD (hyperlipidemia) Surgical History History of fusion of cervical spine History of radiofrequency ablation procedure for cardiac arrhythmia (12/2016) History of herniorrhaphy History of vasectomy History of left heart catheterization (08/08/15) History of coronary artery stent placement (11/01/14) Family History Father CAD (coronary artery disease) Myocardial infarction Mother CAD (coronary artery disease) Sister CAD (coronary artery disease) Social History Smoking Status: Never smoker alcohol intake: current alcohol intake frequency: a few times a week substance use type: does not use caffeine: Yes Type: coffee Number of servings: 2 HPI CERVICAL SPINE Details: This documentation accurately reflects the service provided and the decisions made by me, Dr. Ronan Dias MD 01/10/25 [id number]. Part of today???s visit was documented by Ricky Odom MA and Carisa Puga RN, acting as scribe. AVI DURHAM is a 74 year old M here today for cervical spine MRI/CT review. Patient states that his pain is a 6 today. He states that he would like to go over the MRI and the CT results to discuss what the next step would be. Patient states that he hasn't had any recent injections, He states that he has been done with physical therapy, which didn't help. He has received injections in the past with pain management, he has also tried Botox injections in the neck that were not helpful. The patient is a 74-year-old male presenting with post-surgical pain following cervical spine surgery. The patient reports a prominent bump at the back of the neck, which became noticeable after the surgery. The bump is associated with a clicking sensation and pain, particularly when standing or walking. The patient also experiences severe pain in the hands, which began post-surgery. The pain is described as severe, affecting the fingers and hands, and is suspected to be related to carpal tunnel syndrome. An EMG is planned to differentiate between carpal tunnel syndrome and cervical radiculopathy. The patient has a history of cervical spine fusion from C3 to C7, with current imaging showing arthritis at the C7-T1 segment. Previous injections have been attempted with limited success, and the patient has undergone Botox treatments without relief. - Musculoskeletal: Reports pain and clicking sensation at the back of the neck, worsened by standing or walking. - Neurological: Reports severe hand pain, particularly at night, with no prior history before surgery. Attestation: Documentation on this patient encounter was supported using ambient scribe technology/ voice AI technology. The patient consented to recording for the purpose of documenting the encounter. Provider reviewed content of the generated note prior to signature. 01/05/25: AVI DURHAM is a 74 year old M here today for cervical spine. Patient states that his pain is a 2 today. He states that the pain is mostly in the back of the neck. Patient states that the pain is a stabbing pain. When he stands up the more it hurts in his neck. He states that he does have pain in both arms. Patient states that the left arm (more content not included)... Normal [facility] Magnetic resonance imaging r eportOrdered By: Regina Mathis on 01-09-2025 Study report [facility] Imaging Services [address] [place] [address] Spine Cervical (Routine) MR#: [id number] Acct: [id number] Name: AVI DURHAM Rep #: [id number] : 1950 M 74 From: Nahum Mathis MD PCP: Dr. Demian Sloan, Status: REG CLI Study:Spine Cervical (Routine) Date of Exam: 01/08/25 Exam# [id number] Ordering Dr: Radha Dias MD PROCEDURE: SPINE CERVICAL (ROUTINE) 01/08/2025 REASON FOR EXAM: CERVICAL MYELOPATHY TECHNIQUE: Procedure Code: MRISPC Modality: MR Procedure: SPINE CERVICAL (ROUTINE) Multiplanar and multisequence images were obtained without IV contrast administration. COMPARISON: Cervical spine MR 03/05/2023. FINDINGS: Vertebrae: Cervical vertebral body heights are preserved. Bone marrow signal is unremarkable. Status post laminectomies and posterior fusion at C2, C3, C4, C5. Alignment: Normal. No spondylolisthesis. Spinal Cord: Cervical spinal cord is of normal size and signal intensities. Structures at the foramen magnum are unremarkable. C2-3: Disc desiccation. Facet joint arthropathy. Mild bilateral foramina stenosis. Mild canal stenosis. C3-4: Unremarkable C4-5: Unremarkable C5-6: Unremarkable C6-7: Unremarkable C7-T1: Uncovertebral hypertrophy. Mild left foramina stenosis. No canal stenosis. MRI/Spine Cervical (Routine) IMPRESSION: Status post laminectomies and posterior fusion at C2, C3, C4, C5. Mild bilateral foramina stenosis and mild canal stenosis at C2-C3. Reading Location: [facility] CC: Dr. Ronan Dias MD; Dr. Demian Sloan DO ~ Ribbon Weaver: Signed [facility] Spine Cervical (Routine)on Spine Cervical (Routine) [facility] Imaging Services [address] [place], [place] [address] Spine Cervical (Routine) MR#: [id number] Acct: [id number] Name: AVI DURHAM Rep #: [id number] : 1950 M 74 From: Regina Mathis MD PCP: Dr. Demian Sloan DO Status: REG CLI Study: Spine Cervical (Routine) Date of Exam: Exam# [id number] Ordering Dr: Ronan Dias MD PROCEDURE: SPINE CERVICAL (ROUTINE) 01/08/2025 REASON FOR EXAM: CERVICAL MYELOPATHY TECHNIQUE: Procedure Code: MRISP Modality: MR Procedure: SPINE CERVICAL (ROUTINE) Multiplanar and multisequence images were obtained without IV contrast administration. COMPARISON: Cervical spine MR 03/05/2023. FINDINGS: Vertebrae: Cervical vertebral body heights are preserved. Bone marrow signal is unremarkable. Status post laminectomies and posterior fusion at C2, C3, C4, C5. Alignment: Normal. No spondylolisthesis. Spinal Cord: Cervical spinal cord is of normal size and signal intensities. Structures at the foramen magnum are unremarkable. C2-3: Disc desiccation. Facet joint arthropathy. Mild bilateral foramina stenosis. Mild canal stenosis. C3-4: Unremarkable C4-5: Unremarkable C5-6: Unremarkable C6-7: Unremarkable C7-T1: Uncovertebral hypertrophy. Mild left foramina stenosis. No canal stenosis. MRI/Spine Cervical (Routine) IMPRESSION: Status post laminectomies and posterior fusion at C2, C3, C4, C5. Mild bilateral foramina stenosis and mild canal stenosis at C2-C3. Reading Location: [facility] CC: Dr. Ronan Dias MD; Dr. Demian Sloan DO Ribbon Weaver: Signed Normal [facility] Spine Cervical without Contr ason 01-06-2025 Spine Cervical without Contras [facility] Imaging Services [address] [place], [place] [address] Spine Cervical without Contras MR#: [id number] Acct: [id number] Name: AVI DURHAM Rep #: [id number] : 1950 M 74 From: Regina Mathis MD PCP: Dr. Demian Sloan DO Status: REG CLI Study: Spine Cervical without Contras Date of Exam: 1 Exam# [id number] Ordering Dr: Ronan Dias MD PROCEDURE: SPINE CERVICAL WITHOUT CONTRAS 01/06/2025 REASON FOR EXAM: CERVICAL MYELOPATHY TECHNIQUE: Procedure Code: CTS Modality: CT Procedure: SPINE CERVICAL WITHOUT CONTRAS Coronal and Sagittal reconstruction series were provided. One or more dose reduction techniques were used (e.g., Automated exposure control, adjustment of the mA and/or kV according to patient size, use of iterative reconstruction technique. RADIATION DOSE SUMMARY: CTDlvol: 21.71 mGy DLP: 581.43 mGycm COMPARISON: X-ray 01/05/2025. FINDINGS: Alignment: Anatomical. Vertebrae: No acute bony abnormalities. Status post laminectomies and posterior fusion at C2, C3, C4, C5. Soft Tissues: No soft tissue abnormalities. The lungs are clear. Disc levels: Mild bilateral foramina and canal stenosis at C2-C3. CT/Spine Cervical without Contras IMPRESSION: Status post laminectomies and posterior fusion at C2, C3, C4, C5. Reading Location: [facility] CC: Dr. Ronan Dias MD; Dr. Demian Sloan DO Ribbon Weaver: Signed Normal [facility] Cerv Spine 4 or 5 Viewson Cerv Spine 4 or 5 Views [facility] Imaging Services [address] [place], [place] [address] Cerv Spine 4 or 5 Views MR#: [id number] Acct: [id number] Name: AVI DURHAM Rep #: [id number] : 1950 M 74 From: Donovan Moeller MD PCP: Dr. Demian Sloan DO Status: DEP AMB Study: Cerv Spine 4 or 5 Views Date of Exam: 01/05/25 Exam# [id number] Ordering Dr: Sydni Gutierrez PROCEDURE: CERV SPINE 4 OR 5 VIEWS 01/05/2025 REASON FOR EXAM: NECK PAIN TECHNIQUE: Procedure Code: RADSPC Modality: DX Procedure: CERV SPINE 4 OR 5 VIEWS COMPARISON: CT cervical spine, 06/29/2023 FINDINGS: Status post bilateral laminectomy and posterior fusion, C3 through C7. There is degenerative disc disease, C3-4 through C6-7. There is no evidence of instability with flexion and extension. RAD/Cerv Spine 4 or 5 Views IMPRESSION: Status post posterior fusion C3 through C7. No evidence of instability. Reading Location: [facility] CC: CHRIS Marina; Dr. Demian Sloan DO Ribbon Weaver: Signed Normal [facility] Orthopedic Visit Reporton Orthopedic Visit Report [facility] [address] [place] [address] [place] [address] OFFICE VISIT Date of Service: 01/05/25 MR#: [id number] Acct: [id number] Name: AVI DURHAM Rep #: [id number] : 1950 Provider: Dr. Ronan Dias MD Age/Sex: 74/M Location: [email or web address] Status: Signed Intake Vital Signs 09/21/22 13:30 01/05/25 11:19 Height 5 ft 10 in 5 ft 10 in Weight: 160 lb BMI 22.9 Intake Visit Reasons: CERVICAL SPINE Chief Complaint: Cervicla spine pain Accompanied by: Is patient in pain?: Yes Pain scale (1-10): 2 Allergies amiodarone Adverse Reaction (Verified 01/05/25 11:22) headaches Medications ???Medication ???Instructions ???Recorded ???Confirmed ???Type cholecalciferol (vitamin D3) 50 50 mcg PO DAILY supplement 0 01/05/25 History mcg (2,000 unit) capsule aspirin 81 mg chewable tablet 81 mg PO DAILY 04/04/20 01/05/25 H istory cyanocobalamin (vitamin B-12) 1,000 mcg PO DAILY supplement 03/0701/05/25 History 1,000 mcg capsule simvastatin 20 mg tablet 20 mg PO QPM cholesterol #90 tabs 07/31/21 01/05/25 Rx Have you fallen in the past year?: No PFSH Medical History (Updated 01/05/25 @ 15:[address] Ronan Dias MD) Cervical myelopathy Degenerative disc disease, cervical Back pain Neck pain Knee pain Atherosclerosis of coronary artery of [place] heart with angina pectoris Paroxysmal atrial fibrillation HLD (hyperlipidemia) Surgical History (Updated 01/05/25 @ 12:14 by Carisa Puga, RN) History of fusion of cervical spine History of radiofrequency ablation procedure for cardiac arrhythmia (12/2016) History of herniorrhaphy History of vasectomy History of left heart catheterization (08/08/15) History of coronary artery stent placement (11/01/14) Family History Father CAD (coronary artery disease) Myocardial infarction Mother CAD (coronary artery disease) Sister CAD (coronary artery disease) Social History Smoking Status: Never smoker alcohol intake: current alcohol intake frequency: a few times a week substance use type: does not use caffeine: Yes Type: coffee Number of servings: 2 HPI CERVICAL SPINE Details: This documentation accurately reflects the service provided and the decisions made by me, Dr. Ronan Dias MD 01/05/25 1119. Part of today???s visit was documented by Ricky Odom MA and Carisa Puga RN, acting as scribe. AVI DURHAM is a 74 year old M here today for cervical spine. Patient states that his pain is a 2 today. He states that the pain is mostly in the back of the neck. Patient states that the pain is a stabbing pain. When he stands up the more it hurts in his neck. He states that he does have pain in both arms. Patient states that the left arm hurts the most. He states that he does get numbness and tingling in his fingers. Patient states that this has been going on since 2022. He states that he had back surgery at [facility]. After his surgery in 2022 he was having really bad neck pain. When he started having pain, he did a follow up appointment. The nurse practitioner stated that they have never seen this before. [facility] the surgery. He states that he hasn't injured anything. Patient states that anything that he does active makes he pain worse. Standing makes the pain worse. Patient states that he has tried physical therapy 3 times in the past. The physical therapy didn't work for him. He states that the more he does, the more pain he gets in his neck. No injections in the past. Last April he had an injections done, and it didn't do anything. Patient states that he doesn't have any diabetes, or blood thinners. Patient states that he doesn't smoke, or do any drugs. Patient states that his balance is okay. He states that he has gripping problems. Sometime he does drop items out of his hands. He denies diabetes. He takes Aspirin 81mg daily. The patient is a 74-year-old male presenting with ongoing cervical spine pain following a multilevel fusion surgery from C3 to C7 performed over two years ago. The patient reports persistent pain at the junction between the cervical and thoracic spine, which has become arthritic and causes crackling sounds with certain movements. The pain has been present since the surgery, with no significant changes over time, and is exacerbated by physical activity. The patient has a history of atrial fibrillation and coronary artery disease, for which a stent was placed approximately 7-8 years ago. He regularly sees a wrapper rewinder and reports that his cardiac condition has been stable. The patient has und (more content not included)... Normal [facility] Basophil percentageOrdered B y: Demian WebsterNathalia on 03-05-2023 Basophil percentage < 1.0 mg/dL 0.70-1.30 [facility] No Panel InformationOrdered By: Demian Sloan on 03-05-2023 Bedside Estimated GFR (eGFR) > 60.0000 mL/min >60 [facility] Absolute lymphocyte countOrd ered By: Demian Sloan on 10-19-2022 Lymphocytes Auto (Unsp spec) [#/Vol] 1.20 10*3/uL 0.83-4.51 [facility] Basophil percentageOrdered B y: Demian WebsterNathalia on 10-19-2022 Basophils/100 WBC (Bld) 0.9 % 0-1 [facility] Bilirubin [Mass/Vol] 1.00 mg/dL 0.20-1.00 [facility] Comment on above: For patients on eltr ombopag therapy, use of Dimension [place] TBIL is not recommended. Chloride [Moles/Vol] 103 mmol/L 98-107 [facility] Cholesterol [Mass/Vol] 109 mg/dL <200 [facility] Comment on above: <200 mg/dL Desirable 200-240 mg/dL Borderline >240 mg/dL High Risk Eosinophils/100 WBC (Bld) 1.3 % 0-5 [facility] Glucose [Mass/Vol] 101 mg/dL 74-106 [facility] Comment on above: Fasting Glucose resu lt from 100 to 125 mg/dL suggests IMPAIRED HOMEOSTASIS per A.D.A. criteria. Neutrophils (Bld) [#/Vol] 3.6 10*3/uL 2.0-7.7 [facility] Neutrophils/100 WBC (Bld) 64.7 % 47-70 [facility] Potassium [Moles/Vol] 3.7 mmol/L 3.5-5.1 [facility] Protein [Mass/Vol] 6.9 g/dL 6.4-8.2 [facility] Sodium [Moles/Vol] 136 mmol/L 136-145 [facility] Triglyceride [Mass/Vol] 111 mg/dL <199 [facility] Comment on above: The drugs N-Acetylcy steine and Metamizole may falsely depress this assay.Serum Triglycerides Reference Interval Normal <150 mg/dL Borderline high 150 - 199 mg/dL High 200 - 499 mg/dL Very High > or = 500 mg/dL WBC (Bld) [#/Vol] 5.6 10*3/uL 4.4-11.0 [facility] Blood erythrocytes count (nu mber/volume)Ordered By: Demian Sloan on 10-19-2022 RBC (Bld) [#/Vol] 4.29 10*6/uL 4.6-6.2 [facility] Blood hemoglobin measurement (mass/volume)Ordered By: Demian Sloan on 10-19-2022 Hemoglobin (Bld) [Mass/Vol] 13.2 g/dL 13.0-16.5 [facility] Blood lymphocytes/100 leukoc ytesOrdered By: Demian Sloan on 10-19-2022 Lymphocytes/100 WBC (Bld) 21.5 % 19-41 [facility] Blood monocytes/100 leukocyt esOrdered By: Demian Sloan on 10-19-2022 Monocytes/100 WBC (Bld) 11.4 % 0-10 [facility] Blood platelet mean volumeOr dered By: Demian Slona on 10-19-2022 Platelet mean volume (Bld) [Entitic vol] 9.3 fL 6.2-12.0 [facility] Determination of erythrocyte mean corpuscular volume (MCV)Ordered By: Demian Sloan on 10-19-2022 MCV (RBC) [Entitic vol] 96.5 fL 80-94 [facility] Hematocrit Auto (Bld) [Volum e fraction]Ordered By: Demian Sloan on 10-19-2022 Hematocrit (Bld) [Volume fraction] 41.4 % 40-54 [facility] Laboratory - Chemistry and C hemistry - challengeOrdered By: Demian Sloan on 10-19-2022 ALP [Catalytic activity/Vol] 87 U/L 45-117 [facility] ALT [Catalytic activity/Vol] 21 U/L 16-61 [facility] CO2 [Moles/Vol] 29.0 mmol/L 21.0-32.0 [facility] Globulin (S) [Mass/Vol] 3.3 g/dL 2.2-4.2 [facility] Urea nitrogen/Creatinine [Mass ratio] 12.6 mg/mg 10-20 [facility] Laboratory - Hematology and Cell countsOrdered By: Demian Sloan on 10-19-2022 Erythrocyte distribution width (RBC) [Entitic vol] 45.1 fL 35.1-43.9 [facility] Erythrocyte distribution width (RBC) [Ratio] 12.7 % 11.6-14.6 [facility] Immature granulocytes/100 WBC (Bld) 0.200 % 0.0-0.9 [facility] Comment on above: IG% - Immature Granu locytes (promyelocytes, myelocytes and metamyelocytes) > 1% indicates that a LEFT SHIFT is Present. MCH (RBC) [Entitic mass] 30.8 pg 27.0-32.0 [facility] Nucleated RBC/100 WBC (Bld) [Ratio] 0 % 0-5 [facility] MCHC Auto (RBC) [Mass/Vol]Or dered By: Demian Sloan on 10-19-2022 MCHC (RBC) [Mass/Vol] 31.9 g/dL 32-36 [facility] No Panel InformationOrdered By: Demian Sloan on 10-19-2022 Estimated GFR (MDRD) Amer 111 mL/min >60 [facility] Comment on above: GFR Calc Estimated GFR (MDRD) Non-Af Amer 92 mL/min >60 [facility] Comment on above: Non- GFR Calc Prostate Specific Antigen Screen 3.40 ng/mL 0.00-4.00 [facility] Comment on above: This test was perfor med using the TPSA assay method for the[employer] chemistry system. Values obtained with differentassay methods cannot be used interchangably.When changing PSA assays in the course of monitoring apatient, additional sequential testing should be carriedout to confirm baseline values. Platelets bldOrdered By: Makayla Sloan on 10-19-2022 Platelets (Bld) [#/Vol] 247 10*3/uL 150-450 [facility] Serum or plasma albumin delio urement (mass/volume)Ordered By: Demian Sloan on 10-19-2022 Albumin [Mass/Vol] 3.6 g/dL 3.2-5.0 [facility] Serum or plasma albumin/glob ulin mass ratioOrdered By: Demian Sloan on 10-19-2022 Albumin/Globulin [Mass ratio] 1.1 {ratio} 0.9-2.4 [facility] Serum or plasma calcium delio urement (mass/volume)Ordered By: Demain Sloan on 10-19-2022 Calcium [Mass/Vol] 9.1 mg/dL 8.5-10.1 [facility] Serum or plasma cholesterol in HDL measurement (mass/volume)Ordered By: Demian Sloan on 10-19-2022 Cholesterol in HDL [Mass/Vol] 48 mg/dL >40 [facility] Comment on above: The drugs N-Acetylcy steine and Metamizole may falsely depress this assay. Reference Range HDL <40 mg/dL Low HDL Cholesterol HDL >or= 60 mg/dL High HDL Cholesterol Serum or plasma cholesterol in VLDL measurement (mass/volume)Ordered By: Demian Sloan on 10-19-2022 Cholesterol in VLDL [Mass/Vol] 22 mg/dL 5-40 [facility] Serum or plasma creatinine m easurement (mass/volume)Ordered By: Demian Sloan on 10-19-2022 Creatinine [Mass/Vol] 0.87 mg/dL 0.70-1.30 [facility] Comment on above: The validity of the calculated GFR & GFRAA in patients over 70 years has not been determined. Clinical correlation is essential. Serum or plasma low density lipoprotein (LDL) cholesterol measurement (mass/volume)Ordered By: Demian Sloan on 10-19-2022 Cholesterol in LDL [Mass/Vol] 39 mg/dL 0-130 [facility] Serum or plasma urea nitroge n measurement (mass/volume)Ordered By: Demian Sloan on 10-19-2022 Urea nitrogen [Mass/Vol] 11 mg/dL 7-18 [facility] Thin prep Papanicolaou smear with manual screeningOrdered By: Demian Sloan on 10-19-2022 Thin prep Papanicolaou smear with manual screening 16 U/L 15-37 [facility] Thin prep Papanicolaou smear with manual screening 4 5-15 [facility] Culture, urineOrdered By: Xin Edwards on 10-16-2022 Bacteria identified Cx Nom (U) Culture exhibits no growth. [facility] PSAFon 12-17-2021 PSA, % Free 26 % Normal [facility] ([place] Comment on above: Result Comment: Tota l [...] 29.7% >25 9.1% 12.2% 15.8% Performed By: [facility] [address] [place] [address] International Sourcing Manager: Wilman Jama III, M.D. CLIA#: [id number] Performed By: #### C MP, LIPID, GFR, PSA, VIDH #### [place] [address] PSA, Diagnostic 2.33 ng/mL Normal <2.60 [facility] ([place] Comment on above: Result Comment: Tota l PSA test methodology used is the Electrochemiluminescence Immunoassay by [employer]. Total PSA values by differing methodologies cannot be interchanged. Performed By: [place] [address] International Sourcing Manager: Wilman Jama III, M.D. CLIA#: [id number] Performed By: #### C MP, LIPID, GFR, PSA, VIDH #### [place] [address] .Auto Diffon 09-15-2021 Basophil, Absolute 0.1 10 3/mcL Normal 0.0-0.2 [facility] Comment on above: Performed By: #### C MP, LIPID, GFR, PSA, VIDH #### [place] [id number] Basophils/100 WBC (Bld) 0.9 % Normal 0.0-2.5 [facility] ([place] Comment on above: Performed By: #### C MP, LIPID, GFR, PSA, VIDH #### [place] [id number] Eosinophil, Absolute 0.2 10 3/mcL Normal 0.0-0.4 [facility] ([place] Comment on above: Performed By: #### C MP, LIPID, GFR, PSA, VIDH #### [place] [id number] Eosinophils/100 WBC (Bld) 2.3 % Normal 0.0-7.0 [facility] ([place] Comment on above: Performed By: #### C MP, LIPID, GFR, PSA, VIDH #### [address] [address] Lymphocyte, Absolute 1.5 10 3/mcL Normal 0.8-3.9 [facility] ([place] Comment on above: Performed By: #### C MP, LIPID, GFR, PSA, VIDH #### [address] [address] Lymphocytes/100 WBC (Bld) 23.3 % Normal 10.0-50.0 [facility] ([place] Comment on above: Performed By: #### C MP, LIPID, GFR, PSA, VIDH #### [address] [address] Monocyte, Absolute 0.8 10 3/mcL Normal 0.2-1.0 [facility] Comment on above: Performed By: #### C MP, LIPID, GFR, PSA, VIDH #### [address] [address] Monocytes/100 WBC (Bld) 11.5 % Normal 1.7-13.0 [facility] ([place] Comment on above: Performed By: #### C MP, LIPID, GFR, PSA, VIDH #### [address] [address] Neutrophils/100 WBC (Bld) 62.0 % Normal 37.0-80.0 [facility] ([place] Comment on above: Performed By: #### C MP, LIPID, GFR, PSA, VIDH #### [address] [address] .GFRon 09-15-2021 GFR Non- 62 ml/min/1.73sqm Normal [facility] ([place] Comment on above: Result Comment: GFR Population [...] C MP, LIPID, GFR, PSA, VIDH #### [address] [address] GFR 75 ml/min/1.73sqm Normal [facility] ([place] Comment on above: Result Comment: GFR Population [...] C MP, LIPID, GFR, PSA, VIDH #### [address] [address] .MDWon 09-15-2021 Monocyte Distribution Width Not performed Normal 0.00-20.00 [facility] ([place] Comment on above: Result Comment: MDW testing performed only on adult ER patients between the ages of 18-89 years. Performed By: #### C MP, LIPID, GFR, PSA, VIDH #### [address] [address] .NEUABSon 09-15-2021 Neutrophil, Absolute 4.1 10 3/mcL Normal 2.9-6.2 [facility] ([place] Comment on above: Performed By: #### C MP, LIPID, GFR, PSA, VIDH #### [address] [address] CBCon 09-15-2021 Erythrocyte distribution width (RBC) [Ratio] 13.3 % Normal 11.5-14.5 [facility] ([place] Comment on above: Performed By: #### C MP, LIPID, GFR, PSA, VIDH #### [place] [address] Hematocrit (Bld) [Volume fraction] 42.6 % Normal 42.0-52.0 [facility] ([place] Comment on above: Performed By: #### C MP, LIPID, GFR, PSA, VIDH #### [place] [id number] Hgb 14.3 G/dL Normal 14.0-18.0 [facility] ([place] Comment on above: Performed By: #### C MP, LIPID, GFR, PSA, VIDH #### [place] [id number] MCH (RBC) [Entitic mass] 31.2 pg Normal 27.0-31.2 [facility] ([place] Comment on above: Performed By: #### C MP, LIPID, GFR, PSA, VIDH #### [place] [address] MCHC 33.5 G/dL Normal 31.8-35.4 [facility] ([place] Comment on above: Performed By: #### C MP, LIPID, GFR, PSA, VIDH #### [place] [id number] MCV (RBC) [Entitic vol] 93.2 fL Normal 80.0-94.0 [facility] ([place] Comment on above: Performed By: #### C MP, LIPID, GFR, PSA, VIDH #### [address] [address] Platelet 203 10 3/mcL Normal 130-400 [facility] ([place] Comment on above: Performed By: #### C MP, LIPID, GFR, PSA, VIDH #### [address] [address] Platelet mean volume (Bld) [Entitic vol] 7.1 fL Low 7.4-10.4 [facility] ([place] Comment on above: Performed By: #### C MP, LIPID, GFR, PSA, VIDH #### [address] [address] RBC 4.57 10 6/mcL Normal 4.04-6.13 [facility] ([place] Comment on above: Performed By: #### C MP, LIPID, GFR, PSA, VIDH #### [address] [address] WBC 6.6 10 3/mcL Normal 4.6-10.8 [facility] ([place] Comment on above: Performed By: #### C MP, LIPID, GFR, PSA, VIDH #### [address] [address] CMPon 09-15-2021 Albumin Level 4.3 G/dL Normal 3.4-4.8 [facility] ([place] Comment on above: Performed By: #### C MP, LIPID, GFR, PSA, VIDH #### [address] [address] Albumin/Globulin [Mass ratio] 1.6 {ratio} Normal 1.1-2.5 [facility] ([place] Comment on above: Performed By: #### C MP, LIPID, GFR, PSA, VIDH #### [address] [address] ALP [Catalytic activity/Vol] 76 U/L Normal 40-135 [facility] ([place] Comment on above: Performed By: #### C MP, LIPID, GFR, PSA, VIDH #### [address] [address] ALT [Catalytic activity/Vol] 22 U/L Normal 16-63 [facility] ([place] Comment on above: Performed By: #### C MP, LIPID, GFR, PSA, VIDH #### [address] [address] AST [Catalytic activity/Vol] 15 U/L Normal 10-40 [facility] ([place] Comment on above: Performed By: #### C MP, LIPID, GFR, PSA, VIDH #### [address] [address] Bili Total 0.7 mg/dL Normal 0.2-1.0 [facility] ([place] Comment on above: Result Comment: Use of this assay is not recommended for patients undergoing treatment with eltrombopag due to the potential for falsely elevated results. Performed By: #### C MP, LIPID, GFR, PSA, VIDH #### [address] [address] BUN/Creatinine Ratio 17 ratio Normal 7-27 [facility] Comment on above: Performed By: #### C MP, LIPID, GFR, PSA, VIDH #### [address] [address] Calcium [Mass/Vol] 9.6 mg/dL Normal 8.4-10.2 [facility] ([place] Comment on above: Performed By: #### C MP, LIPID, GFR, PSA, VIDH #### [address] [address] Chloride [Moles/Vol] 105 mmol/L Normal 98-107 [facility] Comment on above: Performed By: #### C MP, LIPID, GFR, PSA, VIDH #### [address] [address] CO2 [Moles/Vol] 29 mmol/L Normal 23-31 [facility] ([place] Comment on above: Performed By: #### C MP, LIPID, GFR, PSA, VIDH #### [address] [address] Creatinine [Mass/Vol] 1.17 mg/dL Normal 0.70-1.30 [facility] ([place] Comment on above: Performed By: #### C MP, LIPID, GFR, PSA, VIDH #### [address] [address] Electrolyte Balance 6.0 mEq/L Normal 4.0-15.0 [facility] ([place] Comment on above: Performed By: #### C MP, LIPID, GFR, PSA, VIDH #### [address] [address] Globulin 2.7 G/dL Normal [facility] ([place] Comment on above: Performed By: #### C MP, LIPID, GFR, PSA, VIDH #### [address] [address] Glucose [Mass/Vol] 106 mg/dL Normal 83-110 [facility]ly [facility] ([place] Comment on above: Performed By: #### C MP, LIPID, GFR, PSA, VIDH #### [address] [address] Potassium [Moles/Vol] 4.8 mmol/L Normal 3.5-5.1 [facility] ([place]) Comment on above: Performed By: #### C MP, LIPID, GFR, PSA, VIDH #### [address] [address] Sodium [Moles/Vol] 140 mmol/L Normal 136-145 [facility] ([place] Comment on above: Performed By: #### C MP, LIPID, GFR, PSA, VIDH #### [address] [address] Total Protein 7.0 G/dL Normal 6.4-8.2 [facility] ([place] Comment on above: Performed By: #### C MP, LIPID, GFR, PSA, VIDH #### [address] [address] Urea nitrogen [Mass/Vol] 20 mg/dL High 7-18 [facility] ([place] Comment on above: Performed By: #### C MP, LIPID, GFR, PSA, VIDH #### [address] [address] LABORATORYOrdered By: Duy Shaffer on 09-15-2021 Albumin [...] 09-15-2021 Cholesterol [Mass/Vol] 151 mg/dL Normal 0-200 [facility] ([place]) Comment on above: Result Comment: Chol esterol Reference Interval: Less than 200 Desirable 200-239 Borderline high risk 240 and above High risk Performed By: #### C MP, LIPID, GFR, PSA, VIDH #### [address] [address] Cholesterol in HDL [Mass/Vol] 46 mg/dL Normal 40-60 [facility] ([place] Comment on above: Performed By: #### C MP, LIPID, GFR, PSA, VIDH #### [facility] [address], [place] [address] Cholesterol in LDL [Mass/Vol] 84 mg/dL Normal 0-130 [facility] ([place]) Comment on above: Performed By: #### C MP, LIPID, GFR, PSA, VIDH #### [facility] [address], [place] [address] Triglyceride [Mass/Vol] 105 mg/dL Normal 0-150 [facility] ([place] Comment on above: Result Comment: Trig lyceride Reference Interval: Less than 150 Normal 150-199 Borderline high risk 200-499 High risk 500 or higher Very high risk Performed By: #### C MP, LIPID, GFR, PSA, VIDH #### [address] [address] PSAon 09-15-2021 Prostate Specific Antigen 2.81 ng/mL Normal 0.00-4.00 [facility] ([place] Comment on above: Performed By: #### C MP, LIPID, GFR, PSA, VIDH #### [address] [address] VIDHon 09-15-2021 Vit. D 25-Hydroxy 53.2 ng/mL Normal [facility] ([place]) Comment on above: Result Comment: Inte rpretive Values Based on Total 25(OH) Vitamin D: Deficient <20 ng/mL Insufficient 20 - <30 ng/mL Sufficient 30-100 ng/mL Performed By: #### C MP, LIPID, GFR, PSA, VIDH #### [address] [address] .Auto Diffon 03-07-2021 Basophil, Absolute 0.10 10 3/mcL Normal 0.00-0.19 [facility] ([place]) Comment on above: Performed By: #### C MP, LIPID, GFR, PSA, VIDH #### [address] [address] Basophils/100 WBC (Bld) 1.0 % Normal 0.0-2.5 [facility] ([place] Comment on above: Performed By: #### C MP, LIPID, GFR, PSA, VIDH #### [address] [address] Eosinophil, Absolute 0.10 10 3/mcL Normal 0.00-0.40 [facility] ([place]) Comment on above: Performed By: #### C MP, LIPID, GFR, PSA, VIDH #### [address] [address] Eosinophils/100 WBC (Bld) 1.8 % Normal 0.0-7.0 [facility] ([place]) Comment on above: Performed By: #### C MP, LIPID, GFR, PSA, VIDH #### [address] [address] Lymphocyte, Absolute 1.40 10 3/mcL Normal 0.77-3.85 A [facility] ([place]) Comment on above: Performed By: #### C MP, LIPID, GFR, PSA, VIDH #### [address] [address] Lymphocytes/100 WBC (Bld) 26.5 % Normal 10.0-50.0 [facility] ([place] Comment on above: Performed By: #### C MP, LIPID, GFR, PSA, VIDH #### [address] [address] Monocyte, Absolute 0.60 10 3/mcL Normal 0.15-1.00 [facility] ([place] Comment on above: Performed By: #### C MP, LIPID, GFR, PSA, VIDH #### [address] [address] Monocytes/100 WBC (Bld) 11.1 % Normal 1.7-13.0 [facility] ([place] Comment on above: Performed By: #### C MP, LIPID, GFR, PSA, VIDH #### [address] [address] Neutrophils/100 WBC (Bld) 59.6 % Normal 37.0-80.0 [facility] ([place] Comment on above: Performed By: #### C MP, LIPID, GFR, PSA, VIDH #### [address] [address] .GFRon 03-07-2021 GFR 98 ml/min/1.73sqm Normal [facility] ([place] Comment on above: Result Comment: GFR Population [...] C MP, LIPID, GFR, PSA, VIDH #### [address] [address] GFR Non- 81 ml/min/1.73sqm Normal [facility] ([place] Comment on above: Result Comment: GFR Population [...] C MP, LIPID, GFR, PSA, VIDH #### [address] [address] .NEUABSon 03-07-2021 Neutrophil, Absolute 3.30 10 3/mcL Normal 2.85-6.16 A [facility] ([place] Comment on above: Performed By: #### C MP, LIPID, GFR, PSA, VIDH #### [address] [address] CBCon 03-07-2021 Erythrocyte distribution width (RBC) [Ratio] 12.9 % Normal 11.5-14.5 [facility] ([place] Comment on above: Performed By: #### L IPID, CBC, ANEU, GFR, ADIFF, CMP #### [address] [address] Hematocrit (Bld) [Volume fraction] 42.8 % Normal 42.0-52.0 [facility] ([place] Comment on above: Performed By: #### L IPID, CBC, ANEU, GFR, ADIFF, CMP #### [place] [address] Hgb 14.5 G/dL Normal 14.0-18.0 [facility] ([place] Comment on above: Performed By: #### L IPID, CBC, ANEU, GFR, ADIFF, CMP #### [place] [address] MCH (RBC) [Entitic mass] 31.3 pg High 27.0-31.2 [facility] ([place] Comment on above: Performed By: #### L IPID, CBC, ANEU, GFR, ADIFF, CMP #### [place] [address] MCHC 33.8 G/dL Normal 31.8-35.4 [facility] ([place] Comment on above: Performed By: #### L IPID, CBC, ANEU, GFR, ADIFF, CMP #### [place] [address] MCV (RBC) [Entitic vol] 92.4 fL Normal 80.0-94.0 [facility] ([place] Comment on above: Performed By: #### L IPID, CBC, ANEU, GFR, ADIFF, CMP #### [place] [address] Platelet 233 10 3/mcL Normal 130-400 [facility] ([place] Comment on above: Performed By: #### L IPID, CBC, ANEU, GFR, ADIFF, CMP #### [place] [address] Platelet mean volume (Bld) [Entitic vol] 7.6 fL Normal 7.4-10.4 [facility] ([place] Comment on above: Performed By: #### L IPID, CBC, ANEU, GFR, ADIFF, CMP #### [address] [address] RBC 4.63 10 6/mcL Normal 4.04-6.13 [facility] ([place] Comment on above: Performed By: #### L IPID, CBC, ANEU, GFR, ADIFF, CMP #### [address] [address] WBC 5.50 10 3/mcL Normal 4.60-10.80 [facility] ([place] Comment on above: Performed By: #### L IPID, CBC, ANEU, GFR, ADIFF, CMP #### [address] [address] CMPon 03-07-2021 Albumin Level 4.1 G/dL Normal 3.4-4.8 [facility] ([place] Comment on above: Performed By: #### C MP, LIPID, GFR, PSA, VIDH #### [address] [address] Albumin/Globulin [Mass ratio] 1.3 {ratio} Normal 1.1-2.5 [facility] ([place] Comment on above: Performed By: #### C MP, LIPID, GFR, PSA, VIDH #### [address] [address] ALP [Catalytic activity/Vol] 73 U/L Normal 40-135 [facility] ([place] Comment on above: Performed By: #### C MP, LIPID, GFR, PSA, VIDH #### [address] [address] ALT [Catalytic activity/Vol] 29 U/L Normal 16-63 [facility] ([place] Comment on above: Performed By: #### C MP, LIPID, GFR, PSA, VIDH #### [address] [address] AST [Catalytic activity/Vol] 16 U/L Normal 10-40 [facility] ([place] Comment on above: Performed By: #### C MP, LIPID, GFR, PSA, VIDH #### [address] [address] Bili Total 0.8 mg/dL Normal 0.2-1.0 [facility] ([place] Comment on above: Result Comment: Use of this assay is not recommended for patients undergoing treatment with eltrombopag due to the potential for falsely elevated results. Performed By: #### C MP, LIPID, GFR, PSA, VIDH #### [address] [address] BUN/Creatinine Ratio 20 ratio Normal 7-27 [facility] [place] Comment on above: Performed By: #### C MP, LIPID, GFR, PSA, VIDH #### [address] [address] Calcium [Mass/Vol] 9.2 mg/dL Normal 8.4-10.2 [facility] ([place] Comment on above: Performed By: #### C MP, LIPID, GFR, PSA, VIDH #### [place] [id number] Chloride [Moles/Vol] 104 mmol/L Normal 98-107 [facility] [place] Comment on above: Performed By: #### C MP, LIPID, GFR, PSA, VIDH #### [address] [address] CO2 [Moles/Vol] 30 mmol/L Normal 23-31 [facility] ([place] Comment on above: Performed By: #### C MP, LIPID, GFR, PSA, VIDH #### [address] [address] Creatinine [Mass/Vol] 0.93 mg/dL Normal 0.70-1.30 [facility] ([place] Comment on above: Performed By: #### C MP, LIPID, GFR, PSA, VIDH #### [address] [address] Electrolyte Balance 9.0 mEq/L Normal [facility] ([place]) Comment on above: Performed By: #### C MP, LIPID, GFR, PSA, VIDH #### [address] [address] Globulin 3.1 G/dL Normal [facility] ([place] Comment on above: Performed By: #### C MP, LIPID, GFR, PSA, VIDH #### [address] [address] Glucose [Mass/Vol] 96 mg/dL Normal 80-115 [facility] ([place] Comment on above: Performed By: #### C MP, LIPID, GFR, PSA, VIDH #### [address] [address] Potassium [Moles/Vol] 4.3 mmol/L Normal 3.5-5.1 [facility] ([place] Comment on above: Performed By: #### C MP, LIPID, GFR, PSA, VIDH #### [address] [address] Sodium [Moles/Vol] 143 mmol/L Normal 136-145 [facility] ([place] Comment on above: Performed By: #### C MP, LIPID, GFR, PSA, VIDH #### [address] [address] Total Protein 7.2 G/dL Normal 6.4-8.2 [facility] ([place] Comment on above: Performed By: #### C MP, LIPID, GFR, PSA, VIDH #### [address] [address] Urea nitrogen [Mass/Vol] 19 mg/dL High 7-18 [facility] ([place] Comment on above: Performed By: #### C MP, LIPID, GFR, PSA, VIDH #### [address] [address] LABORATORYOrdered By: Corina De La Garza on [...] 03-07-2021 Cholesterol [Mass/Vol] 164 mg/dL Normal 0-200 [facility] ([place] Comment on above: Result Comment: Chol esterol Reference Interval: Less than 200 Desirable 200-239 Borderline high risk 240 and above High risk Performed By: #### C MP, LIPID, GFR, PSA, VIDH #### [address] [address] Cholesterol in HDL [Mass/Vol] 48 mg/dL Normal 40-60 [facility] ([place] Comment on above: Performed By: #### C MP, LIPID, GFR, PSA, VIDH #### [address] [address] Cholesterol in LDL [Mass/Vol] 95 mg/dL Normal 0-130 [facility] ([place] Comment on above: Performed By: #### C MP, LIPID, GFR, PSA, VIDH #### [address] [address] Triglyceride [Mass/Vol] 106 mg/dL Normal 0-150 [facility] ([place] Comment on above: Result Comment: Trig lyceride Reference Interval: Less than 150 Normal 150-199 Borderline high risk 200-499 High risk 500 or higher Very high risk Performed By: #### C MP, LIPID, GFR, PSA, VIDH #### [address] [address] Office Visiton 12-31-2016 Documentation of current medications (procedure) Done Invalid Interpretation Code [employer] Work Phone: [phone] Fall risk assessment Fall risk assessment Invali d Interpretation Code [employer] Work Phone: [phone] Protein mass conc Done [employer] Work Phone: [phone] Replaced Document: Midmark E CG Observationson 12-31-2016 EKG QRS axis -16 deg Invalid Interpretation Code [employer] Work Phone: [phone] Interpretation Sinus Rhythm -RSR(V1 ) -nondiagnostic. PROBABLY NORMAL Invalid Interpretation Code [employer] Work Phone: [phone] P [place] 49 deg Invalid Interpretation Code [employer] Work Phone: [phone] CA Interval 164 ms Invalid Interpretation Code [employer] Work Phone: [phone] Pulse (Heart Rate) 86 /min Invalid Interpretation Code [employer] Work Phone: [phone] QRS Duration 98 ms Invalid Interpretation Code [employer] Work Phone: [phone] QT Interval new path ms Invalid Interpretation Code [employer] Work Phone: [phone] QTc Boyd 403 ms Invalid Interpretation Code [email or web address] Phone: [phone] T [place] 51 deg Invalid Interpretation Code [email or web address] Phone: [phone] Prostate Spec. Agon 10-13-19 17 Prostate Spec. Ag 1.67 ng/mL Normal 0.00-4.00 [facility] Comment on above: Performed By: #### P ####[address] [address] Office Visiton 07-16-2016 Documentation of current medications (procedure) Done Invalid Interpretation Code [email or web address] Phone: [phone] Fall risk assessment No Invalid Interpretation Code [email or web address] Phone: [phone]) Lab Report: Basic Metabolic Profile (BMP)on 06-15-2016 Anion gap 7 mmol/L Invalid Interpretation Code 5-15 [employer] Work Phone: [phone] Anion gap molar conc 7 mmol/L 5-15 [employer] Work Phone: [phone] BUN/Creatinine Ratio 20.4 RATIO High 10-20 [employer] Work Phone: [phone] Calcium 8.7 mg/dL Invalid Interpretation Code 8.5-10.1 [employer] Work Phone: [phone] Chloride 105 mmol/L Invalid Interpretation Code 98-107 [employer] Work Phone: [phone] CO2 28.0 mmol/L Invalid Interpretation Code 21.0-32.0 [facility] Work Phone: [phone] CO2 ppres (BldV) 28.0 mmol/L 21.0-32.0 [facility] Work Phone: [phone] Creatinine 1.03 mg/dL Invalid Interpretation Code 0.70-1.30 [facility] Work Phone: [phone] eGFR (non-black) 77 mL/min/{1.73_m2} Invalid Interpretation Code >60 [employer] Work Phone: [phone] eGFR (non-black) 93 mL/min/{1.73_m2} Invalid Interpretation Code >60 [employer] Work Phone: [phone] EST GFR - AA 93 mL/min >60 [employer] Work Phone: [phone] Glucose 93 mg/dL Invalid Interpretation Code 70-110 [employer] Work Phone: [phone] Glucose mass conc 93 mg/dL Invalid Interpretation Code 70-110 [employer] Work Phone: [phone] Potassium 4.0 mmol/L Invalid Interpretation Code 3.5-5.1 [facility] Work Phone: [phone] Sodium 140 mmol/L Invalid Interpretation Code 136-145 [employer] Work Phone: [phone] Urea nitrogen 21 mg/dL High 7-18 [employer] Work Phone: [phone]) Lab Report: CBC-Complete Blo od Cnt No Diffon 06-15-2016 Erythrocyte distribution width Ratio (RBC) 12.2 % 11.6-14.6 [facility] Work Phone: [phone] Erythrocyte distribution width Ratio (RBC) 41.4 fL 35.1-43.9 [facility] Work Phone: [phone] Erythrocytes (RBC) 4.35 10*6/uL Low 4.6-6.[address] [facility] [employer] Work Phone: [phone] Hematocrit (HCT) 41.3 % Invalid Interpretation Code 40-54 [facility] Work Phone: [phone] Hematocrit Volume Fraction (Bld) 41.3 % 40-54 [facility] Work Phone: [phone] Hemoglobin (HGB) 13.7 g/dL Invalid Interpretation Code 13.0-16.5 [facility] Work Phone: [phone] MCH 31.5 pg Invalid Interpretation Code 27.0-32.0 [facility] Work Phone: [phone] MCH Entitic mass (RBC) 31.5 pg 27.0-32.0 [facility] Work Phone: [phone] MCHC 33.2 G/GL Invalid Interpretation Code 32-36 [facility] Work Phone: [phone] MCHC mass conc (RBC) 33.2 G/GL 32-[address] [facility] [address] [facility] Work Phone: [phone] MCV 94.9 fL High 80-94 [facility] Work Phone: [phone] MCV Entitic volume (RBC) 94.9 fL High 80-94 [facility] Work Phone: [phone] Platelet mean volume Entitic volume (Bld) 9.3 fL 6.2-12.0 [facility] Work Phone: [phone] Platelets 209 10*3/mm3 Invalid Interpretation Code 150-450 [facility] Work Phone: [phone] Platelets #/vol (Bld) 209 10*3/mm3 150-450 [facility] Work Phone: [phone] PMV by Liana 9.3 fL Invalid Interpretation Code 6.2-12.0 [facility] Work Phone: [phone] RBC #/vol (Bld) 4.35 10*6/uL Low 4.6-6.2 [facility] Work Phone: [phone] RDW SD 41.4 fL Invalid Interpretation Code 35.1-43.9 [facility] Work Phone: [phone] RDW-CA 12.2 % Invalid Interpretation Code 11.6-14.6 [facility] Work Phone: [phone] red blood cell distribution width, size density 41.4 fL Invalid Interpretation Code 35.1-43.9 [facility] Work Phone: [phone] WBC #/vol (Bld) 5.8 10*3/uL 4.4-11.0 [employer] Work Phone: [phone] WBC (Leukocytes) 5.8 10*3/uL Invalid Interpretation Code 4.4-11.0 [employer] Work Phone: [phone]) Lab Report: Magnesiumon 06-03 Magnesium 2.0 mg/dL Invalid Interpretation Code 1.8-2.4 [employer] Work Phone: [phone] Lab Report: T4 Total, Thyrox inon 06-15-2016 Thyroxine (T4) 8.6 ug/dL Invalid Interpretation Code 4.5-12.1 [employer] Work Phone: [phone] Lab Report: Thyroid Stim Hor mane (TSH)on 06-15-2016 Thyroid stimulating hormone (TSH) 1.77 u[iU]/mL Invalid Interpretation Code 0.358-3.74 [employer] Work Phone: [phone]) Clinical Lists Update: Prelo fiscal services director 01-22-2016 Left ventricular Ejection fraction 60 % Invalid Interpretation Code [email or web address] Phone: [phone] Lab Report: Prothrombin Time w/INRon 08-06-2015 Coagulation tissue factor induced in platelet poor plasma 14.7 s Invalid Interpretation Code 11.7-14.9 [email or web address] Phone: [phone] INR Coag RelTime (PPP) 1.2 {INR} Invalid Interpretation Code [employer] Work Phone: [phone] INR in blood by coagulation 1.2 {INR} Invalid Interpretation Code [employer] Work Phone: [phone] Replaced Document: Gilberto E CG Observationson 08-06-2015 electrocardiogram interpretation Sinus Rhythm -RSR(V1) -nondiagnostic. PROBABLY NORMAL Invalid Interpretation Code [employer] Work Phone: [phone] GE use only - for [employer] import when terms are not otherwise specified 402 ms Invalid Interpretation Code [email or web address] Phone: [phone] P wave axis, electrocardiogram 58 deg Invalid Interpretation Code [employer] Work Phone: [phone] CA interval, electrocardiogram 174 ms Invalid Interpretation Code [email or web address] Phone: [phone] Pulse (Heart Rate) 60 /min Invalid Interpretation Code [email or web address] Phone: [phone] QRS axis, electrocardiogram -20 deg Invalid Interpretation Code [employer] Work Phone: [phone] QRS duration, electrocardiogram 97 ms Invalid Interpretation Code [email or web address] Phone: [phone] QT interval, electrocardiogram new path ms Invalid Interpretation Code [employer] Work Phone: [phone] T wave axis, electrocardiogram 42 deg Invalid Interpretation Code [email or web address] Phone: [phone] Office Visiton 05-28-2015 Tobacco smoking status NHIS Never smoker [employer] Work Phone: [phone] Tobacco use [facility] Never smoker Invalid Interpretation Code [email or web address] Phone: [phone] Lab Report: Lipid Profileon 03-19-2015 Cholesterol 126 mg/dL Invalid Interpretation Code 200 [email or web address] Phone: [phone] HDL Cholesterol 43 mg/dL Invalid Interpretation Code [email or web address] Phone: [phone] LDL Cholesterol 66 mg/dL Invalid Interpretation Code 0-130 [email or web address] Phone: [phone] Triglyceride 84 mg/dL Invalid Interpretation Code [email or web address] Phone: [phone] very low density lipoproteins 17 mg/dL Invalid Interpretation Code 5-40 [email or web address] Phone: [phone]) Lab Report: Liver Profileon 03-19-2015 Alanine aminotransferase (ALT) 29 U/L Invalid Interpretation Code 12-78 [employer] Work Phone: [phone] Albumin 3.8 g/dL Invalid Interpretation Code 3.4-5.0 [email or web address] Phone: [phone] Alkaline phosphatase (ALP) 74 U/L Invalid Interpretation Code 50-136 [employer] Work Phone: [phone] ALP enzyme act/vol (Bld) 74 U/L 50-136 [employer] Work Phone: [phone] Aspartate aminotransferase (AST) 16 U/L Invalid Interpretation Code 15-37 [employer] Work Phone: Bilirubin (direct) 0.13 mg/dL Invalid Interpretation Code 0.00-0.30 [employer] Work Phone: [phone] Bilirubin (total) 0.40 mg/dL Invalid Interpretation Code 0.20-1.00 [employer] Work Phone: [phone] Globulin 3.5 g/dL Invalid Interpretation Code 2.3-3.5 [employer] Work Phone: [phone] Globulin mass conc (S) 3.5 g/dL 2.3-3.5 [employer] Work Phone: [phone] Protein 7.3 g/dL Invalid Interpretation Code 6.4-8.2 [employer] Work Phone: [phone] Office Visiton 12-19-2014 cardiac risk group C Invalid Interpretation Code [email or web address] Phone: [phone] General cardiovascular disease 10Y risk [#] Hoffman.D'Agostin o N/A Invalid Interpretation Code [email or web address] Phone: [phone]) Clinical Lists Update: Prelo fiscal services director 11-02-2014 Cholesterol to HDL Ratio 3.7 {ratio} Invalid Interpretation Code [facility] Phone: [phone] Vital Signs Date Time Vital Sign Value Performing Clinician Teresa sosa 01-10-2025 13:32-0400 Body height 177.[address] Demian Sloan DO Work Phone: [facility] 01-10-2025 13:32-0400 Body mass index (BMI) [Ratio] 22.9 kg/m2 Dr. Demian Sloan DO Work Phone: [facility] 01-10-2025 13:32-0400 Body weight 72.[address] Demian Sloan DO Work Phone: [facility] 01-05-2025 11:19-0400 Body height 177.[address] Demian Sloan DO Work Phone: [facility] 01-05-2025 11:19-0400 Body mass index (BMI) [Ratio] 22.9 kg/m2 Dr. Demian Sloan DO Work Phone: [facility] 01-05-2025 11:19-0400 Body weight 72.[address] Demian Sloan DO Work Phone: [facility] 09-21-2022 13:30-0400 Body height 177.8 cm [facility] 12-31-2016 16:48-0400 Heart rate 86 /min [facility] Work Phone: 12-31-2016 16:26-0400 BMI (Body Mass Index) 23.54 kg/m2 [facility] Work Phone: 12-31-2016 16:26-0400 BP Diastolic 60 mm[Hg] [facility] Work Phone: 12-31-2016 16:26-0400 BP Systolic 110 mm[Hg] [facility] Work Phone: 12-31-2016 16:26-0400 Height 177.8 cm [facility] Work Phone: 12-31-2016 16:26-0400 Pulse (Heart Rate) 80 /min [facility] Work Phone: 12-31-2016 16:26-0400 Respiratory Rate 20 /min [facility] Work Phone: 12-31-2016 16:26-0400 Weight 74.44 kg [facility] Work Phone: 07-16-2016 15:15-0400 BMI (Body Mass Index) 23.99 kg/m2 Negra Rosenthal RN [facility] Work Phone: 07-16-2016 15:15-0400 BP Diastolic 60 mm[Hg] Negra Rosenthal RN [facility] Work Phone: 07-16-2016 15:15-0400 BP Systolic 100 mm[Hg] Negra Rosenthal RN [facility] Work Phone: 07-16-2016 15:15-0400 Height [...] Date Encounter Type Care Provider Facility Start: 01-10-2025 End: 01-10-[address] Ronan Dias MD -[facility] Work Phone: Start: 01-10-2025 End: 01-10-[address] Demian Sloan DO Work Phone: [facility] Start: 01-08-2025 End: 01-08-[address] Demian Sloan DO Work Phone: -[facility] Start: 01-08-2025 End: 01-08-[address] Ronan Dias MD -[facility] Work Phone: Start: 01-08-2025 End: 01-08-2025 ambulatory Ronan Dias Facility:[facility] Start: 01-06-2025 End: 01-06-[address] Demian Sloan DO Work Phone: -[facility] Start: 01-06-2025 End: 01-06-[address] Ronan Dias MD -[facility] Work Phone: Start: 01-05-2025 End: 01-05-[address] Ronan Dias MD -[facility] Work Phone: Start: 01-05-2025 End: 01-06-[address] Demian Sloan DO Work Phone: -[facility] Start: 08-06-2023 End: 08-06-2023 ambulatory [facility] Work Phone: Start: 08-06-2023 End: 08-06-2023 Patient encounter procedure [facility]-Laboratory,Fut ure Work Phone: Start: 03-05-2023 End: 03-05-2023 ambulatory [facility] Work Phone: Start: 03-05-2023 End: 03-05-2023 Patient encounter procedure [facility]-MRI - [facility] Work Phone: Start: 11-30-2022 End: 11-30-2022 ambulatory [facility] Work Phone: Start: 11-30-2022 End: 11-30-2022 Patient encounter procedure [facility]-Radiology, [place] Work Phone: Start: 10-22-2022 End: 10-22-2022 ambulatory [facility] Work Phone: Start: 10-22-2022 End: 10-22-2022 Discharged Recurring [facility]-Physical Therapy Work Phone: Start: 10-22-2022 Registered Recurring [facility] Work Phone: Start: 10-20-2022 Registered Recurring [facility]Physical Therapy Work Phone: Start: 10-19-2022 End: 10-19-2022 ambulatory [facility] Work Phone: Start: 10-19-2022 End: 10-19-2022 Patient encounter procedure [facility]-Laboratory, [place] Work Phone: Start: 10-16-2022 End: 10-16-2022 ambulatory [facility] Work Phone: Start: 10-16-2022 End: 10-16-2022 Patient encounter procedure [facility]-Laboratory Work Phone: Start: 12-26-2021 End: 12-27-[address] JUAN BROWN MD. Facility:A Start: 12-26-2021 End: 12-26-2021 Patient encounter procedure DR JUAN BROWN MD [facility] Start: 12-16-2021 End: 12-17-[address] JUAN BROWN MD. Facility:B Start: 09-15-2021 End: 2021 ambulatory DREW HYMAN LIBRARY HISTORIAN Facility:B Start: 09-15-2021 End: 09-15-2021 Patient encounter procedure DREW HYMAN FREIGHT LOADER - LIBRARY HISTORIAN [facility] Start: 03-07-2021 End: 03-08-2021 ambulatory DREW HYMAN LIBRARY HISTORIAN Facility:[facility] Start: 03-07-2021 End: 03-07-2021 Patient encounter procedure DREW HYMAN FREIGHT LOADER - LIBRARY HISTORIAN [facility] Start: 10-12-2016 End: 10-13-2016 Ambulatory DREW WALKER Facility:[facility] [place] Procedures Date Procedure Procedure Detail Performing Clinician Start: 01-08-2025 MRI of cervical spine Rito Sloan DO Work Phone: Start: 01-06-2025 CT cervical spine wi thout contrast Dr. Demian Sloan DO Work Phone: Start: 01-05-2025 X-ray of cervical spine Dr. Demian Sloan DO Work Phone: Start: 03-05-2023 MRI of cervical spin e with contrast Start: 11-30-2022 Plain chest X-ray Start: 10-16-2022 Urine culture Start: 03-20-2019 Colonoscopy DREW TO MPKINS FREIGHT LOADER - LIBRARY HISTORIAN Start: 12-31-2016 End: 12-31-2016 Ecg routine ecg [...] months Gely Marmolejo Start: 02-05-2016 End: 02-05-2016 QUETA Jones MD Start: 02-05-2016 End: 02-05-2016 Follow Up Appt 6 months Gely Marmolejo Start: 02-05-2016 End: 02-05-2016 QUETA Jones MD Start: 01-09-2016 End: 01-09-2016 FUGITIVE INVESTIGATOR Patti Toribio PA-C Work Phone: Start: 01-09-2016 End: 01-09-2016 Follow Up Appt 6 months Patti Toribio PA-C Work Phone: Start: 01-09-2016 End: 01-09-2016 FUGITIVE INVESTIGATOR Patti Toribio PA-C Work Phone: Start: 01-09-2016 [...] months Gely Marmolejo Start: 07-09-2015 End: 07-09-2015 MMGely Jones MD Start: 07-09-2015 End: 07-09-2015 Follow Up Appt 6 months Gely Marmolejo Start: 07-09-2015 End: 07-09-2015 MMGely Jones MD Start: 05-28-2015 End: 05-28-2015 LEVI Jones MD Start: 05-28-2015 End: 05-28-2015 Follow Up Appt 6 weeks Dallas Jones MD Start: 05-28-2015 End: 05-29-2015 Thyrotropin [Units/volume] in Serum or Plasma Dallas Jones MD Start: 05-28-2015 End: 05-29-2015 Thyroxine (T4) [Mass/volume] in Serum or Plasma Dallas Jones MD Start: 05-28-2015 End: 08-12-2015 Xtrnl mobile cv telemetry w/i&report 30 days Dallas Jones MD Start: 05-28-2015 End: 05-28-2015 FUGITIVE INVESTIGATOR Dallas Jones MD Start: 05-28-2015 End: 05-28-2015 Follow [...] disease History of coronary artery stent placement Comment on above: YSN-RGL-Tpto LAD w/ 3.0 x 20 mm Promus Premier Stent 11/01/14 Catheterization of [facility] heart DREW HYMAN FREIGHT LOADER - LIBRARY HISTORIAN Coronary angioplasty DREW HYMAN FREIGHT LOADER - [employer] Coronary artery sten t (physical object) DREW HYMAN FREIGHT LOADER - [employer] Electrophysiology ma pping phase (qualifier value) DREW HYMAN FREIGHT LOADER - [employer] Excision biopsy of s kin lesion DREW HYMAN FREIGHT LOADER [employer] Comment on above: 2019 H/O Spinal surgery DREW GRIMES FREIGHT LOADER [employer] H/O: vasectomy DREW NELSON FREIGHT LOADER [employer] Herniated structure (morphologic abnormality) DREW HYMAN FREIGHT LOADER [employer] History of tonsillectomy DRU HYMAN FREIGHT LOADER [employer] Plan of Treatment Date Care Activity Detail Author Start: 03-07-2025 [facility] Start: 01-10-2025 [facility] Start: 01-05-2025 X-ray of cervical spine Cerv Spine 4 or 5 Views [facility] Start: 01-05-2025 XR Cervical spine 4 or 5 Views [facility] Start: 03-26-2017 End: 03-26-2017 Appointment Appointment [facility] Phone: Start: 12-31-2016 End: 12-31-2016 Appointment Appointment [facility] Phone: Start: 12-31-2016 End: 01-07-2017 24 hour holter monitor 24 hour holter monitor [facility] Work Phone: Start: 12-31-2016 End: 12-31-2016 Follow Up Appt 3 months Follow Up Appt 3 months [facility] Work Phone: Start: 12-31-2016 End: 12-31-2016 NICHOLAS PETERSON [facility] Work Phone: Start: 12-31-2016 End: 12-31-2016 24 hour holter monitor 24 hour holter monitor [facility] Work Phone: Start: 12-31-2016 End: 12-31-2016 Follow Up Appt 3 months Follow Up Appt 3 months [facility] Work Phone: Start: 12-31-2016 End: 12-31-2016 JHR JHR [facility] Work Phone: Start: 07-16-2016 End: 10-23-2016 FUGITIVE INVESTIGATOR FUGITIVE INVESTIGATOR [facility] Work Phone: Start: 07-16-2016 End: 10-23-2016 Follow Up Appt 3 months Follow Up Appt 3 months [facility] Work Phone: Start: 07-16-2016 End: 10-23-2016 FUGITIVE INVESTIGATOR FUGITIVE INVESTIGATOR [facility] Work Phone: Start: 07-16-2016 End: 10-23-2016 Follow Up Appt 3 months Follow Up Appt 3 months [facility] Work Phone: Start: 06-12-2016 End: 06-15-2016 *BMP *BMP [facility] Work Phone: Start: 06-12-2016 End: 06-15-2016 CBC W Auto Differential panel - Blood *CBC without Diff [facility] Work Phone: Start: 06-12-2016 End: 06-15-2016 Magnesium *Magnesium [facility] Work Phone: Start: 06-12-2016 End: 06-15-2016 Thyroid stimulating hormone (TSH) *TSH [facility] Work Phone: Start: 06-12-2016 End: 06-15-2016 Thyroxine (T4) *T4 (Total) [facility] Work Phone: Start: 06-12-2016 End: 06-15-2016 Xtr mobile cv telemetry w/i&report 30 days 30 Day Holter Monitor [facility] Work Phone: Start: 06-12-2016 End: 06-15-2016 *BMP *BMP [facility] Work Phone: Start: 06-12-2016 End: 06-15-2016 CBC W Auto Differential panel - Blood *CBC without Diff [facility] Work Phone: Start: 06-12-2016 End: 06-15-2016 Magnesium *Magnesium [facility] Work Phone: Start: 06-12-2016 End: 06-15-2016 Remote 30 day ecg rev/report 30 Day Holter Monitor [facility] Work Phone: Start: 06-12-2016 End: 06-15-2016 Thyroid stimulating hormone (TSH) *TSH [facility] Work Phone: Start: 06-12-2016 End: 06-15-2016 Thyroxine (T4) *T4 (Total) [facility] Work Phone: Start: 02-05-2016 End: 02-05-2016 Follow Up Appt 6 months Follow Up Appt 6 months [facility] Work Phone: Start: 02-05-2016 End: 02-05-2016 MMM MMM [facility] Work Phone: Start: 02-05-2016 End: 02-05-2016 Follow Up Appt 6 months Follow Up Appt 6 months [facility] Work Phone: Start: 02-05-2016 End: 02-05-2016 MMM MMM [facility] Work Phone: Start: 01-09-2016 End: 01-09-2016 FUGITIVE INVESTIGATOR FUGITIVE INVESTIGATOR [facility] Work Phone: Start: 01-09-2016 End: 01-09-2016 Follow Up Appt 6 months Follow Up Appt 6 months [facility] Work Phone: Start: 01-09-2016 End: 01-09-2016 FUGITIVE INVESTIGATOR FUGITIVE INVESTIGATOR [facility] Work Phone: Start: 01-09-2016 End: 01-09-2016 Follow Up Appt 6 months Follow Up Appt 6 months [facility] Work Phone: Start: 09-18-2015 End: 01-07-2017 *Hepatic Function Panel *Hepatic Function Panel [facility] Work Phone: Start: 09-18-2015 End: 01-07-2017 Lipid panel [AGGREGATE] *Lipid Profile CC PCP [facility] Work Phone: Start: 09-18-2015 End: 03-20-2015 *Hepatic Function Panel *Hepatic Function Panel [facility] Work Phone: Start: 09-18-2015 End: 03-20-2015 Lipid panel [AGGREGATE] *Lipid Profile CC PCP [facility] Work Phone: Start: 08-06-2015 End: 08-06-2015 *BMP *BMP [facility] Work Phone: Start: 08-06-2015 End: 08-06-2015 CBC W Auto Differential panel - Blood *CBC without Diff [facility] Work Phone: Start: 08-06-2015 End: 08-12-2015 Chest x-ray X-Ray, Chest, PA & Lateral [facility] Work Phone: Start: 08-06-2015 End: 08-06-2015 Ecg routine ecg w/least 12 lds w/i&r EKG (In office) [facility] Work Phone: Start: 08-06-2015 End: 12-25-2015 Follow Up Appt 6 months Follow Up Appt 6 months [facility] Work Phone: Start: 08-06-2015 End: 08-06-2015 INR Coag RelTime (PPP) *PT/INR [facility] Work Phone: Start: 08-06-2015 End: 08-06-2015 Left Heart Cath Left Heart Cath [facility] Work Phone: Start: 08-06-2015 End: 12-25-2015 MMM MMM [facility] Work Phone: Start: 08-06-2015 End: 08-06-2015 *BMP *BMP [facility] Work Phone: Start: 08-06-2015 End: 08-06-2015 CBC W Auto Differential panel - Blood *CBC without Diff [facility] Work Phone: Start: 08-06-2015 End: 08-12-2015 Chest x-ray X-Ray, Chest, PA & Lateral [facility] Work Phone: Start: 08-06-2015 End: 08-06-2015 Coagulation factor induced.INR assay in platelet poor plasma *PT/INR [facility] Work Phone: Start: 08-06-2015 End: 08-06-2015 Electrocardiogram, complete EKG (In office) [facility] Work Phone: Start: 08-06-2015 End: 12-25-2015 Follow Up Appt 6 months Follow Up Appt 6 months [facility] Work Phone: Start: 08-06-2015 End: 08-06-2015 Left Heart Cath Left Heart Cath [facility] Work Phone: Start: 08-06-2015 End: 12-25-2015 MMM MMM [facility] Work Phone: Start: 07-09-2015 End: [...] Group Work Phone: Start: 05-28-2015 End: 05-28-2015 FUGITIVE INVESTIGATOR FUGITIVE INVESTIGATOR [facility] Work Phone: Start: 05-28-2015 End: 05-28-2015 Follow Up Appt 6 weeks Follow Up Appt 6 weeks [facility] Work Phone: Start: 05-28-2015 End: 05-29-2015 Thyroid stimulating hormone (TSH) *TSH [facility] Work Phone: Start: 05-28-2015 End: 05-29-2015 Thyroxine (T4) *T4 (Total) [facility] Work Phone: Start: 05-28-2015 End: 05-28-2015 Xtrnl mobile cv telemetry w/i&report 30 days 30 Day Holter Monitor [facility] Work Phone: Start: 05-28-2015 End: 05-28-2015 FUGITIVE INVESTIGATOR FUGITIVE INVESTIGATOR [facility] Work Phone: Start: 05-28-2015 End: 05-28-2015 Follow Up Appt 6 weeks Follow Up Appt 6 weeks [facility] Work Phone: Start: 05-28-2015 End: 05-28-2015 Remote 30 day ecg rev/report 30 Day Holter Monitor [employer] Work Phone: Start: 05-28-2015 End: 05-29-2015 Thyroid stimulating hormone (TSH) *TSH [facility] Work Phone: Start: 05-28-2015 End: 05-29-2015 Thyroxine (T4) *T4 (Total) [facility] Work Phone: Start: 12-19-2014 End: 03-19-2015 *Hepatic Function Panel *Hepatic Function Panel [facility] Work Phone: Start: 12-19-2014 End: 12-19-2014 Follow Up Appt 6 months Follow Up Appt 6 months [facility] Work Phone: Start: 12-19-2014 End: 03-19-2015 Lipid panel [AGGREGATE] *Lipid Profile CC PCP [facility] Work Phone: Start: 12-19-2014 End: 12-19-2014 MMM MMM [employer] Work Phone: Start: 12-19-2014 End: 03-19-2015 *Hepatic Function Panel *Hepatic Function Panel [facility] Work Phone: Start: 12-19-2014 End: 12-19-2014 Follow Up Appt 6 months Follow Up Appt 6 months [facility] Work Phone: Start: 12-19-2014 End: 03-19-2015 Lipid panel [AGGREGATE] *Lipid Profile CC PCP [facility] Work Phone: Start: 12-19-2014 End: 12-19-2014 MMM MMM [facility] Work Phone: Start: 11-09-2014 End: 11-09-2014 Cardiac Rehab Cardiac Rehab [address] [place], [id number] [facility] Work Phone: Start: 11-09-2014 End: 11-09-2014 Cardiac Rehab Card[facility] [address] [place], [address] [facility] Work Phone: CT Cervical spine [facility] MR Cervical spine [facility] Patient Education HYPERLIPIDEMIA [facility] Work Phone: Immunizations Immunization Date Immunization Notes Care Provider Fa [facility] 01-17-2021 influenza virus vaccine, unspecified formulation DREW HYMAN FREIGHT LOADER - LIBRARY HISTORIAN [facility] 01-17-2021 SARS-CoV-2 mRNA (tozinameran) vaccine DREW HYMAN FREIGHT LOADER - LIBRARY HISTORIAN [facility] Comment on above: Result Comment: 2020: [id number] 05-29-2020 SARS-CoV-2 mRNA (tozinameran) vaccine DREW HYMAN FREIGHT LOADER - LIBRARY HISTORIAN [facility] 05-10-2020 SARS-CoV-2 mRNA (tozinameran) vaccine DREW HYMAN FREIGHT LOADER - LIBRARY HISTORIAN [facility] 01-08-2020 influenza virus vaccine, unspecified formulation DREW HYMAN FREIGHT LOADER - LIBRARY HISTORIAN [facility] 01-01-2020 Influenza virus vaccine [facility] 12-20-2018 influenza, injectabl e, quadrivalent, preservative free; Translations: [Fluarix PF Quadrivalent ] DREW HYMAN FREIGHT LOADER - LIBRARY HISTORIAN [facility] 03-19-2018 zoster vaccine recombinant DREW HYMAN FREIGHT LOADER - LIBRARY HISTORIAN [facility] 01-22-2018 zoster vaccine recombinant DREW HYMAN FREIGHT LOADER - LIBRARY HISTORIAN [facility] 12-31-2017 influenza virus vaccine, unspecified formulation DREW HYMAN FREIGHT LOADER - LIBRARY HISTORIAN [facility] 01-28-2017 influenza virus vaccine, unspecified formulation DREW HYMAN FREIGHT LOADER - LIBRARY HISTORIAN [facility] 12-30-2014 influenza virus vaccine, unspecified formulation DREW HYMAN FREIGHT LOADER - LIBRARY HISTORIAN [facility] 01-26-2014 influenza virus vaccine, unspecified formulation DREW HYMAN FREIGHT LOADER - LIBRARY HISTORIAN [facility] Payers Date Payer Category Payer Self-pay [id number] 2024 [facility] [id number] 2021 Medicare [id number] 2021 Private Health Insurance [id number] 2016 Medicare 1950 Unknown [id number] 2.16.8 [id number] 1950 Unknown [id number] 2.16.8 [id number] 1950 Unknown [id number] 2.16.8 [id number] 1950 Unknown [id number] 2.16.8 [id number] Unknown [id number] 2.16.8 [id number] Unknown [id number] 2.16.8 [id number] Unknown [id number] 2.16.8 [id number] Unknown [id number] 2.16.8 [id number] Unknown [id number] 2.16.8 [id number] Social History Date Type Detail Facility Start: 12-20-2018 End: 09-21-2022 Never smoked tobacco (finding) [facility] Comment on above: No smoke exposure Start: 1950 Sex Assigned At Male [facility] Start: 09-21-2022 End: 09-21-2022 Tobacco smoking status NHIS Unknown if ever smoked [facility] Start: 04-04-2020 Occasional [facility] Start: 04-04-2020 None [facility] Start: 04-04-2020 Spouse/ Signif icant Other [facility] Start: 04-04-2020 [facility] Clinical Notes 12-10-2022 to 01-09-2025 Note Date & Type Note Facility 01-09-2025 Radiology Diagnostic study note [facility] [place] [address] Spine Cervical without Contras MR#: [id number] Acct: [id number] Name: AVI DURHAM Rep #: [id number] : 1950 M 74 From: Nahum Mathis MD PCP: Dr. Demian Sloan DO Status: REG CLI Study:Spine Cervical without Contras Date of Exam: 01/06/25 Exam# [id number] Ordering Dr: Radha Dias MD PROCEDURE: SPINE CERVICAL WITHOUT CONTRAS 01/06/2025 REASON FOR EXAM: CERVICAL MYELOPATHY TECHNIQUE: Procedure Code: CTSPC Modality: CT Procedure: SPINE CERVICAL WITHOUT CONTRAS Coronal and Sagittal reconstruction series were provided. One or more dose reduction techniques were used (e.g., Automated exposure control, adjustment of the mA and/or kV according to patient size, use of iterative reconstruction technique. RADIATION DOSE SUMMARY: CTDlvol: 21.71 mGy DLP: 581.43 mGycm COMPARISON: X-ray 01/05/2025. FINDINGS: Alignment: Anatomical. Vertebrae: No acute bony abnormalities. Status post laminectomies and posterior fusion at C2, C3, C4, C5. Soft Tissues: No soft tissue abnormalities. The lungs are clear. Disc levels: Mild bilateral foramina and canal stenosis at C2-C3. CT/Spine Cervical without Contras IMPRESSION: Status post laminectomies and posterior fusion at C2, C3, C4, C5. Reading Location: [id number] CC: Dr. Ronan Dias MD; Dr. Demian Sloan DO ~ Ribbon Weaver: Signed [facility] 01-05-2025 Evaluation note Diagnosis Onset Date Resolution Adjacent segment disease acute January 05 11:03am Degenerative disc disease, cervical acute January 05, 2 025 11:03am History of fusion of cervical spine acute January 05 11:03am Cervical myelopathy acute Octob er 2024 1:26pm Degenerative disc disease, cervical acute January 10, 2 025 1:26pm History of fusion of cervical spine acute January 10 1:26pm [facility] Work Phone: [phone]) [phone] Evaluation note* Diagnosis Onset Date Resolution Status Admit Date Adjacent segment disease acute January 05, 2025 11:03am Degenerative disc disease, cervical acute January 05 11:03am History of fusion of cervica l spine acute January 05 11:03am Carpal tunnel syndrome acute Oc tob2024 1:26pm Cervical radiculopathy acute Oc tober 2024 1:26pm Degenerative disc disease, cervical acute January 10 1:26pm History of fusion of cervica l spine acute January 10 1:26pm [facility] Work Phone: [phone] Discharge summary Author Alok Prieto [facility] December 10, 2022 11:37am Note Date/Time December 10, 2022 11:36am [facility] Physical Therapy [facility] [address] [place] [id number] / REHABILITATION SERVICES DISCHARGE SUMMARY MR#: [id number] Acct: [id number] Name: AVI DURHAM Rep #: [id number] : 1950 72 From: Cert. VIOLET Brian, OCS Referring Dr.: Dr. Sanjiv Greenberg MD Status : REG RCR Insurance: MEDICARE PART A B [facility] Discharge Summary D/C summary: It has been my pleasure to treat AVI DURHAM referred by Dr. Sanjiv Greenberg MD, with the diagnosis of S/P POST [...] please feel free to call me at [phone]. Thank you for the referral of thispatient. Sincerely, Alok Prieto, PT, Cert MDT, OCS Balance/Gait/Functional tests Balance/Special Test Scores Oswestry Neck Score: 26 Improvement % Improvement: 25 <Electronically signed by Alok Prieto PT, Cert. T, ESPERANZA> 12/10/22 [id number] CC: GEOPHYSICAL LABORATORY CHIEFCrow Hyman; Dr. Sanjiv Greenberg MD ~ JLA Signed [facility] Work Phone: Evaluation + Plan note Future Appointments Appointment Date:03/20/2021 10:20:00 AM Scheduled Provider:DREW HYMAN APRN - LIBRARY HISTORIAN Location:[employer] [facility] Appointment Type:PC OV Follow Up Appointment Date:12/26/2021 09:20:00 AM Scheduled Provider:JUAN BROWN MD Location:UROLOGY Appointment Type:URO OV Future Scheduled Tests Laboratory* PSA, Free 12/13/21 [facility] Evaluation + Plan note Future Appointments Appointment Date:09/25/2021 10:20:00 AM Scheduled Provider:DREW HYMAN APRN, CNP Location:[facility] Appointment Type:PC OV Follow Up Appointment Date:12/26/2021 09:20:00 AM Scheduled Provider:JUAN BROWN MD Location:UROLOGY Appointment Type:URO OV Future Scheduled Tests Laboratory* PSA, Free 12/13/21 [facility] Evaluation + Plan note Future Appointments Appointment Date:03/26/2022 10:20:00 AM Scheduled Provider:DREW HYMAN APRN, CNP Location:[employer] [place] Appointment Type:PC OV Follow Up Appointment Date:12/04/2022 10:40:00 AM Scheduled Provider:JUAN BROWN MD Location:UROLOGY Appointment Type:URO OV Future Scheduled Tests Laboratory* Prostate Specific Antigen 12/26/22 * Prostate Specific Antigen 03/27/22 * Lipid Profile 03/27/22 * Vitamin D Level 03/27/22 * Complete Metabolic Panel 03/27/22 [facility] Evaluation noteNo assessment information available [facility] Work Phone: Evaluation note* Diagnosis Onset Date Resolution Status Admit Date Degenerative disc disease, cervical acute January 05 11:03am History of fusion of cervica l spine acute January 05 11:03am [facility] Work Phone: Hospital course Narrative No data available for this section [facility] Hospital Discharge instructions No data available for this section [facility] Progress note No data available for this section [facility] Reason for referral (narrative)No reason for [facility] Summary Purpose Family History Relationship Condition Age at Onset Recorded Date/T felipe father Coronary artery disease Unknown Myocardial infarction Unknown mother Coronary artery disease Unknown sister Coronary artery disease Unknown Advance Directives Advance Directive Response Recorded Date/ Time Advance Directives Yes September 21 1:30pm Living Will Yes September 21, 2022 1:30pm Power of Flower Machine Operator No September 21 1:30pm Advance Directive Response Recorded Date/ Time Advance Directives Yes September 21 12:30pm Living Will Yes September 21, 2022 12:30pm Power of Flower Machine Operator No September 21 12:30pm Advance Directive Response Recorded Date/ Time Advance Directives Yes September 21 1:30pm Chief Complaint and Reason for Visit Chief Complaint Dysuria LAMINECTOMY W/ FUSION RX HERE Chief Complaint CERVICAL DISC DEGENE RATION Chief Complaint Admit Date CERVICAL SPINE January 05, 2025 11 :03am Room 1 January 05, 2025 11 :51am Reason for Visit Admit Date Degenerative disc disease, cervical Octo steven 2024 11:03am History of fusion of cervical spine Octo 2024 11:03am Chief Complaint Admit Date CERVICAL SPINE January 05, 2025 11 :03am Room 1 January 05, 2025 11 :51am CERVICAL MYELOPATHY January 06, 2025 9: 33am CERVICAL MYELOPATHY January 08, 2025 4: 10pm CERVICAL SPINE January 10, 2025 1: 26pm Reason for Visit Admit Date Adjacent segment disease January 05 11:03am Degenerative disc disease, cervical Octo 2024 11:03am History of fusion of cervical spine Jano 2024 11:03am Cervical myelopathy January 10, 2025 1: 26pm Degenerative disc disease, cervical Octo 2024 1:26pm History of fusion of cervical spine Jano 2024 1:26pm Reason for Visit Admit Date Adjacent segment disease January 05 11:03am Degenerative disc disease, cervical Octo steven 2024 11:03am History of fusion of cervical spine Jano 2024 11:03am Carpal tunnel syndrome January 10, 2025 1:26pm Cervical radiculopathy January 10, 2025 1:26pm Degenerative disc disease, cervical Octo steven 2024 1:26pm History of fusion of cervical spine Octo steven 2024 1:26pm Additional Source Comments (unrecognized sect ion and content) No Status Records FoundNo Status Records FoundNo Status Records Found INFORMATION SOURCE (unrecogn ized section and content) DATE CREATED AUTHOR 09/29/2017 [facility] DATE CREATED AUTHOR AUTHOR'S ORGANIZ ATION 01/07/2022 [facility] ([place]) DATE CREATED AUTHOR AUTHOR'S ORGANIZ ATION 01/21/2025 [facility] Care Team (unrecognized sect ion and content) Team Status: Active Member Role Status Dates Dr. Drew Walker Jr., MD Family Provider Active Dr. Demian Sloan DO Primary Care Provider Active Team Status: Active Member Role Status Dates Drew Hyman GEOPHYSICAL LABORATORY CHIEF, GEOPHYSICAL LABORATORY CHIEF-C Primary Care Provider Active Dr. Sanjiv Greenberg MD Attending Provider, Referrin g Provider Active [...] Inactive Member Role Status Dates Drew Hyman GEOPHYSICAL LABORATORY CHIEF, GEOPHYSICAL LABORATORY CHIEF-C Primary Care Provider Active Dr. Sanjiv Greenberg MD Attending Provider, Referrin g Provider Active Team Status: Inactive Member Role Status Dates Dr. Demian Sloan DO Primary Care Provider, Attendin g Provider Active Team Status: Active Member Role/Relationship Status Dates Dr. Drew Walker Jr., MD Primary care physician Activ e Dr. Demian Sloan DO Primary care physician Active Team Status: Inactive Member Role/Relationship Status Dates Dr. Demian Sloan DO Primary care physician Active Start: January 05, 2025 End: January 05, 2025 Dr. Demian Sloan DO Referring Provider Active Start: January 05, 2025 End: January 05, 2025 Dr. Ronan Dias MD Attending physician Active Start: January 05, 2025 End: January 05, 2025 Team Status: Inactive Member Role/Relationship Status Dates Dr. Demian Sloan DO Primary care physician Active Start: January 05, 2025 End: January 05, 2025 Dr. Dallas Jones MD Attending physician Active Start: January 05, 2025 End: January 05, 2025 Team Status: Active Member Role/Relationship Status Dates Dr. Demian Sloan DO Primary care physician Active Start: January 05, 2025 Dr. Demian Sloan DO Referring Provider Active Start: January 05, 2025 Dr. Ronan Dias MD Attending physician Active Start: January 05, 2025 Team Status: Active Member Role/Relationship Status Dates Dr. Demian Sloan DO Primary care physician Active Team Status: Active Member Role/Relationship Status Dates Dr. Demian Sloan DO Primary care physician Active Start: January 06, 2025 Dr. Ronan Dias MD Attending physician Active Start: January 06, 2025 Dr. Ronan Dias MD Referring Provider Active Start: January 06, 2025 Team Status: Active Member Role/Relationship Status Dates Dr. Demian Sloan DO Primary care physician Active Start: January 08, 2025 Dr. Ronan Dias MD Attending physician Active Start: January 08, 2025 Dr. Ronan Dias MD Referring Provider Active Start: January 08, 2025 Team Status: Inactive Member Role/Relationship Status Dates Dr. Demian Sloan DO Primary care physician Active Start: January 10, 2025 End: January 10, 2025 Dr. Demian Sloan DO Referring Provider Active Start: January 10, 2025 End: January 10, 2025 Dr. Ronan Dias MD Attending physician Active Start: January 10, 2025 End: January 10, 2025 Team Status: Inactive Member Role/Relationship Status Dates Dr. Demian Sloan DO Primary care physician Active Start: January 06, 2025 End: January 06, 2025 Dr. Ronan Dias MD Attending physician Active Start: January 06, 2025 End: January 06, 2025 Dr. Ronan Dias MD Referring Provider Active Start: January 06, 2025 End: January 06, 2025 Team Status: Inactive Member Role/Relationship Status Dates Dr. Demian Sloan DO Primary care physician Active Start: January 08, 2025 End: January 08, 2025 Dr. Ronan Dias MD Attending physician Active Start: January 08, 2025 End: January 08, 2025 Dr. Ronan Dias MD Referring Provider Active Start: January 08, 2025 End: January 08, 2025 Care Team (unrecognized sect ion and content) Care Team Personnel Name: ONEL DREW Rito [employer]REIGHT LOADER - [employer]RARY HISTORIAN Position: P4 Advanced Practice Nurse Med Service: Employed Provider Member Role: Primary Care Physician Address: Address: [address] [place] [address] [place] [address]- Care Team Related Persons Name: CHAN DURHAM Address: Home [address] [place] [address] [address] [place] [place], [place] [id number] Goals (unrecognized section and content) Goals may [...] BE BASED ON THE PRIMARY CLINICAL RECORDS. [employer] provides no warranty or guarantee of the accuracy or completeness of information in this document.
[2025-03-27] MEDS: Lactated Ringers 1,000 ML 15 ML IV (08:52)
--- NOTE | 2025-03-27 09:14 | PCM.PRE.AN2 ---
ASA Classification* ASA Classification ASA Classification: 3 Assessment & Plan Anesthesia* Anesthesia Assessment Anesthesia Assessment: Discussed sedation and/or anesthesia options, risks, benefits, and alternatives with patient/parents/legal guardian/POA. Questions invited. The patient/parents/legal guardian/POA seems to understand and agrees to proceed with anesthesia plan. Reviewed the physical assessment, medical history, allergy history and patient home medications list prior to surgery/procedure/anesthetic and documented any changes. Performed airway and anesthesia risk assessments. Anesthesia Type Anesthesia Type: MAC History Source History Obtained from:: Patient and Chart Anesthesia Focused Assessment* Temperature: 98.0 F Pulse Rate: 69 Blood Pressure: 114/75 Respiratory Rate: 18 Pulse Ox: 100 Oxygen Delivery Method: Room Air Airway Assessment Mouth opens: >3 cm Mallampati Score: III Teeth Condition: Partial (Patient has 3 bridges. They are tight.) Neck Range of motion (ROM): Limited ROM (Somewhat Decreased secondary to cervical fusion.) Labs Anesthesia Preop lab: CBC WBC, (4.4-11.0) 7.0 K/mm3 11/22/23, 08:45 RBC, (4.6-6.2) 4.69 M/mm3 11/22/23, 08:45 Hgb, (13.0-16.5) 14.4 g/dL 11/22/23, 08:45 Hct, (40-54) 44.5 % 11/22/23, 08:45 Plt Count, (150-450) 227 K/mm3 11/22/23, 08:45 CHEMISTRY Potassium, (3.5-5.1) 4.0 mmol/L 11/22/23, 08:45 Sodium, (136-145) 139 mmol/L 11/22/23, 08:45 Magnesium, (1.6-2.6) 2.3 mg/dL 04/04/20, 20:50 BUN, (7-18) 19 mg/dL H 11/22/23, 08:45 Creatinine, (0.70-1.30) 0.93 mg/dL 11/22/23, 08:45 Glucose, (74-106) 96 mg/dL 11/22/23, 08:45 TSH, (0.358-3.74) 1.77 uIU/mL 06/15/16, 10:44 COAG PT, (11.7-14.9) 14.7 SECONDS 08/06/15, 09:52 Pre-Assessment Diagnosis/Proposed Procedure Planned Operative Procedure(s): (L) Left Carpal Tunnel Release Anesthesia History Anesthesia History - receiving teller: Anesthesia History - receiving teller Hx Hospitalization No 03/23/25 11:25 Any Problems With Anesthesia No 03/23/25 11:25 Cholinesterase deficiency No 03/23/25 11:25 You/Your Family Experience No 03/23/25 11:25 fever (hyperthermia) with Relationship Recent Exposure to Contagious No 03/27/25 08:49 Disease Does patient have nerve No 03/23/25 11:25 stimulator Patient instructed to have device shut off --Does patient have Pacemaker No 03/27/25 08:49 or ICD? When Was Last Pacemaker Check QUESTION #4 FULL TEXT: You/Your Family Experience fever (hyperthermia) with Anesthesia Last Oral Intake Last Oral intake: Last Oral Intake NPO since 20:00 03/27/25 08:49 Meds taken in AM with sips of No 03/27/25 08:49 water? Meds patient instructed to take am of surgery PONV PONV - receiving teller: PONV - receiving teller Female No 03/23/25 11:25 HX of Motion Sickness No 03/23/25 11:25 HX of N/V After Surgery No 03/23/25 11:25 Non-Smoker Yes 03/23/25 11:25 Duration of Surgery greater No 03/23/25 11:25 than 60 minutes Number of Risk Factors 1 03/23/25 11:25 PONV Score Low Risk 03/23/25 11:25 Height & Weight Height & Weight: Anesthesia: Height & Weight Height 5 ft 10 in 03/27/25 08:49 Weight: 73.5 kg 03/27/25 08:49 Body Mass Index (BMI) 23.2 03/27/25 08:49 Respiratory Assessment Respiratory Assessment - receiving teller: Respiratory Tract Infection Hx - receiving teller Hx Respiratory Tract Infection No 03/23/25 11:25 STOP Sleep Apnea STOP Sleep Apnea - receiving teller: STOP Sleep Apnea - receiving teller Hx Hypertension No 03/23/25 11:25 Hx Sleep Apnea No 03/23/25 11:25 CPAP BIPAP Do you snore loudly (louder No 03/23/25 11:25 than talking or can be heard Do you often feel tired/ No 03/23/25 11:25 fatigued/ sleepy during daytime? Has anyone observed you stop No 03/23/25 11:25 breathing during sleep? STOP Results Negative 03/23/25 11:25 QUESTION #5 FULL TEXT : Do you snore loudly (louder than talking or can be heard through closed doors)? Tobacco Use History Tobacco Use History - receiving teller: Tobacco Use History - receiving teller Tobacco Use Smoking Status Never smoker 03/23/25 11:25 Hx Tobacco Use No 03/23/25 11:25 Years Smoking Packs Smoked per Day Smoking Cessation Date was within the last 15 years Hx Smoking Cessation Date Hx Smoking Cessation Counseling Hematologic Medial History Hematologic Hx - receiving teller: Hematologic Medical Hx - cut off sawyer Hx of Blood Transfusion No 03/23/25 11:25 Hx of Transfusion in last 3 No 03/23/25 11:25 Months Date of Last Transfusion (if within last 3 months) Ever experience any problems No 03/23/25 11:25 with transfusion(s)? Specify any problems Hx of Preganancy in last 3 N/A 03/23/25 11:25 Months Nurse Filling Out Transfusion VCHRISTIN 03/23/25 11:25 & Questions: Date: 03/23/25 03/23/25 11:25 Time: 11:26 03/23/25 11:25 Patient unable to answer at this time (ie. confused, unrespo /Reproduction History /Reproductive History - receiving teller: /Reproductive Hx- receiving teller Hx Now No 03/23/25 11:25 Gestational Age (in weeks): EDC: Hx Hx Para Hx Section SAB No 03/23/25 11:25 Does the father of the baby or his family experience fever w Father of the baby Malignant Hypertension history comment Active Medications Active Medications: Current Medications Generic Name Dose Route Start Last Admin Trade Name Freq PRN Reason Stop Dose Admin Lactated Ringer's 1,000 mls @ 15 mls/hr 03/27/25 08:30 03/27/25 08:52 IV 15 mls/hr .Q48H RIGOBERTO Administration PFSH Medical History (Updated 03/23/25 @ 11:25 by Stephanie Burrell) Wears hearing aid Wears glasses Cancer Alcohol use History of steroid therapy Arthritis High cholesterol Easy bruising History of hiatal hernia Non-smoker History of echocardiogram History of stress test Cardiology follow-up encounter Cervical myelopathy Degenerative disc disease, cervical Back pain Neck pain Knee pain Atherosclerosis of coronary artery of [place] heart with angina pectoris Paroxysmal atrial fibrillation HLD (hyperlipidemia) Home Medications ?Medication ?Instructions ?Recorded ?Last Taken ?Type aspirin 81 mg chewable tablet 81 mg PO DAILY 04/04/20 03/13/25 History alfuzosin 10 mg tablet,extended 10 mg PO DAILY Prostate 03/23/25 Unknown History release 24 hr atorvastatin 40 mg tablet 40 mg PO DAILY Heart disease 03/23/25 Unknown History Allergy/AdvReac Type Severity Reaction Status Date / Time amiodarone AdvReac headaches Verified 03/27/25 08:48 Family History Father CAD (coronary artery disease) Myocardial infarction Mother CAD (coronary artery disease) Sister CAD (coronary artery disease) Surgical History (Updated 03/23/25 @ 11:25 by Stephanie Burrell) Hx of tonsillectomy History of fusion of cervical spine History of radiofrequency ablation procedure for cardiac arrhythmia (12/2016) History of herniorrhaphy History of vasectomy History of left heart catheterization (08/08/15) History of coronary artery stent placement (11/01/14) Social History Smoking Status: Never smoker alcohol intake: current alcohol intake frequency: a few times a week substance use type: does not use caffeine: Yes Type: coffee Number of servings: 2 Review of Systems (Anesthesia) ROS Narrative System reviewed and no additional complaints, except as documented.
--- NOTE | 2025-03-27 09:35 | PCM.HP.BLA ---
History and Physical MR#: [id number] Acct: [id number] Name: AVI DURHAM Rep #: [id number] : 1950 Provider: Dr. Ronan Dias MD Age/Sex: 74/M [place] [facility] [place] Status: Signed Intake Vital Signs 01/10/2513:32 03/20/2508:51 Height 5 ft 10 in 5 ft 10 in Weight: 160 lb 160 lb BMI 22.9 22.9 Intake Visit Reasons: CERVICAL SPINE Chief Complaint: Cervical spine EMG review Accompanied by: Is patient in pain?: Yes Pain scale (1-10): 5 Allergies amiodarone Adverse Reaction (Verified 03/20/25 08:55) headaches Medications ?Medication ?Instructions ?Recorded ?Confirmed ?Type cholecalciferol (vitamin D3) 50 50 mcg PO DAILY supplement 03/12/20 03/20/25 History mcg (2,000 unit) capsule aspirin 81 mg chewable tablet 81 mg PO DAILY 04/04/20 03/20/25 History cyanocobalamin (vitamin B-12) 1,000 mcg PO DAILY supplement 04/04/20 03/20/25 History 1,000 mcg capsule simvastatin 20 mg tablet 20 mg PO QPM cholesterol #90 tabs 07/31/21 03/20/25 Rx Have you fallen in the past year?: No PFSH Medical History Cervical myelopathy Degenerative disc disease, cervical Back pain Neck pain Knee pain Atherosclerosis of coronary artery of [place] heart with angina pectoris Paroxysmal atrial fibrillation HLD (hyperlipidemia) Surgical History History of fusion of cervical spine History of radiofrequency ablation procedure for cardiac arrhythmia (12/2016) History of herniorrhaphy History of vasectomy History of left heart catheterization (08/08/15) History of coronary artery stent placement (11/01/14) Family History Father CAD (coronary artery disease) Myocardial infarction Mother CAD (coronary artery disease) Sister CAD (coronary artery disease) Social History Smoking Status: Never smoker alcohol intake: current alcohol intake frequency: a few times a week substance use type: does not use caffeine: Yes Type: coffee Number of servings: 2 HPI CERVICAL SPINE Details: This documentation accurately reflects the service provided and the decisions made by me, Dr. Ronan Dias MD 03/20/25 0851. Part of today?s visit was documented by Ricky Odom MA and Carisa Puga RN, acting as scribe. AVI DURHAM is a 74 year old M here today for cervical spine EMG review. Patient states that his pain is a 5 today. He would like to go over the EMG results to discuss what the next step would be. Patient hasn't had any injections in his neck. He does get an injection this by Dr. Drummond. He states the pain and numbness are worse at night, especially when he doesn't wear his splint. He has been wearing the splint for a couple months. The left hand is worse than the right. He did have a cardiac stent placed in 2016. He does see a paper final inspector regularly but they are located in [place]. He takes Aspirin 81mg daily. The patient is a 74 year old male presenting for evaluation and management of left carpal tunnel syndrome. He reports that symptoms have not changed since his last visit and are primarily nocturnal, causing pain that awakens him from sleep. He notes symptoms in the thumb, index, and middle fingers of the left hand. Wearing a splint at night, which he has done for the past couple of months, provides some relief. The patient's right hand is not as symptomatic as the left. A recent EMG study confirmed the diagnosis of carpal tunnel syndrome. He has not had any prior injections for this condition. His past surgical history is significant for a 4-level cervical spine surgery. He is scheduled to receive a neck injection this . Past medical history includes coronary artery disease, for which a stent was placed in 2016, and he is followed by a paper final inspector yearly. He takes baby aspirin and denies being on any other blood thinners. Attestation: Documentation on this patient encounter was supported using ambient scribe technology/ voice AI technology. The patient consented to recording for the purpose of documenting the encounter. Provider reviewed content of the generated note prior to signature. 01/10/25: AVI DURHAM is a 74 year old M here today for cervical spine MRI/CT review. Patient states that his pain is a 6 today. He states that he would like to go over the MRI and the CT results to discuss what the next step would be. Patient states that he hasn't had any recent injections, He states that he has been done with physical therapy, which didn't help. He has received injections in the past with pain management, he has also tried Botox injections in the neck that were not helpful. 01/05/25: AVI DURHAM is a 74 year old M here today for cervical spine. Patient states that his pain is a 2 today. He states that the pain is mostly in the back of the neck. Patient states that the pain is a stabbing pain. When he stands up the more it hurts in his neck. He states that he does have pain in both arms. Patient states that the left arm hurts the most. He states that he does get numbness and tingling in his fingers. Patient states that this has been going on since 2022. He states that he had back surgery at [facility]. After his surgery in 2022 he was having really bad neck pain. When he started having pain, he did a follow up appointment. The nurse practitioner stated that they have never seen this before. Patient states that he had a cervical surgery at [facility]. Dr. Quiroz did the surgery. He states that he hasn't injured anything. Patient states that anything that he does active makes he pain worse. Standing makes the pain worse. Patient states that he has tried physical therapy 3 times in the past. The physical therapy didn't work for him. He states that the more he does, the more pain he gets in his neck. No injections in the past. Last April he had an injections done, and it didn't do anything. Patient states that he doesn't have any diabetes, or blood thinners. Patient states that he doesn't smoke, or do any drugs. Patient states that his balance is okay. He states that he has gripping problems. Sometime he does drop items out of his hands. He denies diabetes. He takes Aspirin 81mg daily. ROS DORYS Narrative Review of Systems - Neurological: Reports nocturnal pain and numbness in the left hand involving the thumb, index, and middle fingers, which awakens him from sleep. - Reports his hand goes to sleep while driving. - Denies symptoms spreading into the forearm. - Cardiovascular: Denies any current cardiac symptoms. Ortho Exam General General: Yes no acute distress Neurologic: Yes alert and Yes oriented x3 Psychologic: Yes reasonable and appropriate Exam Narrative Physical Exam - Left Upper Extremity: Positive provocative testing with direct pressure over the carpal tunnel reproduces symptoms in the median nerve distribution. - Right Upper Extremity: Examination reveals fewer symptoms compared to the left. Upper extremity shows 5 x 5 strength. Vince's negative. Romberg's is positive. Tandem gait shows imbalance. There is no hyperreflexia lower extremities. Carpal tunnel compression test is positive on the left side, Tinel sign is positive in the left carpal tunnel. Results - Tests and Diagnostics: EMG confirmed carpal tunnel syndrome. Coding Level of Care Code Off vis,est,level 4 Diagnoses History of fusion of cervical spine Z98.1 Degenerative disc disease, cervical M50.30 Cervical radiculopathy M54.12 Carpal tunnel syndrome of left wrist G56.02 Laterality: left Additional Codes Intake - Is patient in pain?: Yes (1125F) Time Spent (min) 35 Assessment and Plan Assessment and Plan (1) History of fusion of cervical spine: Status: Acute (2) Degenerative disc disease, cervical: Status: Acute (3) Cervical radiculopathy: Status: Acute (4) Carpal tunnel syndrome: Status: Acute Qualifiers: Laterality: left Qualified Code(s): G56.02 - Carpal tunnel syndrome, left upper limb Plan Assessment and Plan 1. Left Carpal Tunnel Syndrome - The patient presents with classic nocturnal symptoms of carpal tunnel syndrome, including pain and numbness in the median nerve distribution, which are relieved by splinting. - The diagnosis is supported by physical exam findings and confirmed by a recent EMG. - The symptoms are deemed unrelated to his known cervical spine pathology. - Given the severity of symptoms and confirmatory testing, surgical intervention is recommended over further conservative measures like injections. - Plan to proceed with a left carpal tunnel release. - The procedure will involve a one-inch incision and sutures to be removed in two weeks. - The risks of surgery, including infection, bleeding/hematoma, nerve injury, stiffness, and recurrence, were discussed. - The upcoming cervical steroid injection may slightly increase the risk of infection. - Postoperative instructions were provided, emphasizing early and frequent finger movement to prevent stiffness. - The OR medical scheduler will contact the patient to arrange the earliest possible surgery date, coordinating with his travel plans to [place]. 2. History of Coronary Artery Disease - The patient is stable on baby aspirin with a history of a stent in 2017. - Plan to obtain cardiac clearance for surgery, as Monitored Anesthesia Care (MAC) is planned. - The office will request records from his paper final inspector in [place] to expedite this process. 3. History of Cervical Spine Disease - The patient has a history of a 4-level cervical spine surgery and is scheduled for a neck injection. - The current hand symptoms are not believed to be originating from his neck. - Plan for patient to proceed with his scheduled neck injection. Patient Instructions - We will move forward with scheduling surgery for the carpal tunnel in your left hand. - Our production planner scheduler will call you to find a date that works for you, keeping in mind your travel plans to [place]. - We will contact your heart doctor to get approval for you to have this minor procedure. - After surgery, you will have a bulky bandage for about 4 to 5 days, but it is very important to keep moving your fingers as much as possible to prevent them from getting stiff. - Your stitches will be taken out two weeks after the surgery. - When resting or sleeping, try to keep your hand elevated on your chest to reduce swelling. - Do not lift heavy items with your operated hand for the first few weeks. - The steroid injection you are getting for your neck can slightly increase the risk of infection, so be sure to keep the surgery site clean after the procedure. - You should be able to drive to [place] after your surgery, but your hand may feel sore if you put pressure on the palm area while holding the steering wheel. I reviewed pt's EMG and previous cervical x-rays, MRI and CT in detail. I recommend that he proceed with the diagnostic injection with pain management as scheduled. The EMG does show carpal tunnel syndrome. I recommend he continue to wear the splint. We discussed all options including non surgical and surgical. The non surgical option would be to try an injection for the carpal tunnel. We also discussed surgery for a carpal tunnel release. I explained the surgery in detail including risks, benefits, alternatives, what to expect after surgery and post operative restrictions. The risks include but are not limited to infection, bleeding, hematoma formation, tourniquet pain, nerve injury, recurrent carpal tunnel syndrome, fingers and hand stiffness, persistent pain, persistent numbness, need for further surgery. At this time he would like to proceed with surgery. They would like to go to [place] for winter, he can have the surgery and have the sutures removed by his doctor in [place]. Follow up two weeks post operatively or sooner if pain, swelling, numbness or associated symptoms, or concerns develop. All questions answered. Patient in agreement of plan.
[2025-03-27] MEDS: Midazolam 2 MG/2 ML Syringe IV (10:03)
[2025-03-27] MEDS: Lidocaine 1% (5 ml sdv) 5 ML Vial IV (10:07)
[2025-03-27] MEDS: fentaNYL 100 MCG/2 ML Ampul 50 MCG IV (10:07)
[2025-03-27] MEDS: Lidocaine 1% (20 ml mdv) 20 ML Vial (10:10)
[2025-03-27] MEDS: Cefazolin 1 GM/5 ML Vial 2 GM IV (10:10)
--- NOTE | 2025-03-27 10:42 | PCM.OPRPT ---
Procedures Musculoskeletal [id number]: Other Procedure See Report Operative Report (Standard) Operative Information Date of Procedure: 03/27/25 Pre-Operative Diagnosis: Left carpal tunnel syndrome Post-Operative Diagnosis: Same Surgery/Procedure Performed: Left carpal tunnel release accounts receivable analyst: Yes Hole Digger: Sydni Gutierrez Tasks completed by assistant commissioner: Closing, Hemostasis: Electrocautery and Retracting Type of Anesthesia: General RN Documented Start/Stop Times: Operation Date: 03/27/25 10:05 Case Time Into Pre-Op 03/27/25 08:25 Out of Pre-Op 03/27/25 09:59 Anesthesia Start 03/27/25 10:00 Into Room 03/27/25 10:00 Procedure Start 03/27/25 10:18 Procedure End 03/27/25 10:37 Anesthesia End 03/27/25 10:41 Out of Room 03/27/25 10:41 Procedure Start Time: 10:18 Procedure Stop Time: 10:37 Select all DRAINS/GRAFTS/IMPLANTS that apply: None Estimated Blood Loss: 5 cc Specimen collected: No Description of surgery: ATTENDING SURGEON: Ronan Dias MD FARM FORESTRY AND GARDEN WORKERS: none PREOPERATIVE DIAGNOSIS: Left carpal tunnel syndrome. POSTOPERATIVE DIAGNOSIS: Same PROCEDURE PERFORMED: Left open carpal tunnel release. CPT 15198 INDICATIONS FOR THE PROCEDURE: The patient is a 74-year-old gentleman, who presents with numbness in radial fingers and EMG, consistent with carpal tunnel syndrome. All conservative management and failed. After a discussion of the risks and benefits of the procedure, consent was signed for the procedure. DETAILS OF PROCEDURE: Patient was met in the preoperative holding area and the correct side was marked as the operative extremity. The patient was brought back to the operative suite and a hand table was placed. A tourniquet was placed. A timeout was performed which correctly identified the procedure to be performed, the operative site as well as the team members. Next, MAC anesthesia was induced. Local infiltration of 1% lidocaine mixed with 0.5% ropivacaine was infiltrated in the volar wrist. Next, the arm was prepped and draped in a sterile fashion. A timeout was performed again that confirmed the site and the procedure. Next, the patient's arm was exsanguinated using the Esmarch bandage and the tourniquet was inflated to 250 mmHg. A 3 cm incision was made longitudinally in line between the middle & ring ray from Sylvester's cardinal line to the wrist crease. Sharp dissection was used to the level of the palmar fascia. This was incised in line with the incision in line with its fibers. Kasden retractors used to retract the fat and the fibers out of the way and revealed the transverse carpal ligament. This was incised in the proximal distal fashion to the level of the palmar fat. Once we saw this, we retracted back in order to release the proximal end of the carpal tunnel ligament. The median nerve was visualized in its entirety throughout this part of the procedure. There were no masses in the carpal tunnel noted. The nerve did not look very hyperemic. Once I was satisfied with the release and it was checked both proximally and distally with a finger in the incision, it was irrigated with copious amounts of normal saline. Wound was then closed with 4-0 nylon in interrupted fashion. Skin was cleaned and the tourniquet was let down. The wounds were dressed with Adaptic, gauze, Webril and a sterile Marcello wrap. Next, the patient was transported to the PACU in stable condition. I was present for the entire case. ESTIMATED BLOOD LOSS: Minimal. COMPLICATIONS: None. DISPOSITION: The patient will be discharged home when pain is controlled from PACU. Follow up in 2 weeks to get sutures removed. Light weightbearing restrictions. Supplier Quality Engineering Manager Sydni Gutierrez PA-C. My physician surgeon assistant was a vital part of this case. They were important in appropriate retraction during the case, and protection of soft tissues during the procedure. Their intimate knowledge of the case and my steps aided in safe and expedient completion of the procedure as well as appropriate position of the patient during the surgery. They were also vital in assisting with closure under my direct supervision. Surgical Findings: See operative note Complications Complications: No
--- NOTE | 2025-03-27 11:00 | PCM.POST.ANE ---
Anesthesia: Postop Eval I Current Vital Signs Temperature: 97.8 F Pulse Rate: 68 Blood Pressure: 95/56 Respiratory Rate: 16 Pulse Ox: 97 Oxygen Delivery Method: Room Air Assessment Airway patent: Yes Spontaneous unlabored respirations: Yes Mental status: Awake and Calm nausea: No Vomiting: No Anesthesia Complication: No Fluid Hydration Crystalloid volume administer (ml): 300 Total IV fluid infused: 300 Progress Note Anesthesia document: Postop Eval 1 completed: Yes
--- NOTE | 2025-03-27 18:26 | POSTOPAN2_ITS ---
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 Spontaneous unlabored Yes 03/27/25 11:01 PAINTING INSTRUCTOR.GDOTT respirations Mental status Awake,Calm 03/27/25 11:01 PAINTING INSTRUCTOR.GDOTT nausea No 03/27/25 11:01 PAINTING INSTRUCTOR.GDOTT Vomiting No 03/27/25 11:01 PAINTING INSTRUCTOR.GDOTT Anesthesia Postop Eval I: Fluid Summary Crystalloid volume administer 300 03/27/25 11:01 PAINTING INSTRUCTOR.GDOTT (ml) Colloids volume administered ( ml) Blood Product volume administered (ml) Total IV fluid infused 300 03/27/25 11:01 PAINTING INSTRUCTOR.GDOTT Anesthesia Postop Eval I: Summary Notes Anesthesia Complication No 03/27/25 11:01 PAINTING INSTRUCTOR.GDOTT Anesthesia Complication Comment: Post-operative progress note Anesthesia: Postop Eval II Evaluation Mental status: Awake and Calm Pain Level: 1 nausea: No Vomiting: No Complications Anesthesia Complication: No
--- NOTE | 2025-03-27 18:26 | PCM.POSTANE2 ---
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 Spontaneous unlabored Yes 03/27/25 11:01 BACK END ENGINEER.GDOTT respirations Mental status Awake,Calm 03/27/25 11:01 BACK END ENGINEER.GDOTT nausea No 03/27/25 11:01 BACK END ENGINEER.GDOTT Vomiting No 03/27/25 11:01 BACK END ENGINEER.GDOTT Anesthesia Postop Eval I: Fluid Summary Crystalloid volume administer 300 03/27/25 11:01 BACK END ENGINEER.GDOTT (ml) Colloids volume administered ( ml) Blood Product volume administered (ml) Total IV fluid infused 300 03/27/25 11:01 BACK END ENGINEER.GDOTT Anesthesia Postop Eval I: Summary Notes Anesthesia Complication No 03/27/25 11:01 BACK END ENGINEER.GDOTT Anesthesia Complication Comment: Post-operative progress note Anesthesia: Postop Eval II Evaluation Mental status: Awake and Calm Pain Level: 1 nausea: No Vomiting: No Complications Anesthesia Complication: No
== END 2025-03-27 11:39 | disposition home or self-care (01) ==
LOC: SDC 08:23 → AC 08:25
PROVIDERS: PCP Family Medicine; Referring Provider Orthopaedic Surgery Orthopaedic Surgery of the Spine; Visit Provider Orthopaedic Surgery Orthopaedic Surgery of the Spine
PROC: (CPT 64721; principal; 2025-03-27 09:50)
DX: G56.02 Carpal tunnel syndrome, left upper limb (principal); I48.0 Paroxysmal atrial fibrillation; I25.10 Atherosclerotic heart disease of native coronary artery without angina pectoris; Z95.5 Presence of coronary angioplasty implant and graft; Z79.82 Long term (current) use of aspirin; E78.00 Pure hypercholesterolemia, unspecified; Z98.1 Arthrodesis status
CPT/HCPCS: 64721; 01810; J2405